=== PATIENT | male | born 1955 | race Caucasian/White ===

== ENCOUNTER → 2017-03-29 | Outpatient (CLI) | payer OTHER ==
[~2017-03-29] VITALS: Ht 185.4 cm; Wt 97.5 kg
[~2017-03-29] MED LIST: AMITRIPTYLINE H25 M2 PO; BAYER BACK & B1 EACH PO; CELEBREX 200 M200 M1 PO; COPAXONE SQ; DURAGESIC1 EACH TRANSDERM; DURAGESIC25 MCG/HR TRANSDERM; FENTANYL PATCH75 MCG TRANSDERM; HYDROCODON-ACE1 EAC5 PO; HYDROCODON-ACE1 EAC8 PO; HYDROCODON-ACE118 ML PO; HYSINGLA ER40 MG PO; LIORESAL 10 MG10 MG PO; LISINOPRIL-HCT1 EACH PO; METHADONE HCL5 MG PO; MOBIC15 MG PO; MS CONTIN15 MG PO; NABUMETONE 500500 M1 PO; NEURONTIN 300300 M1 PO; NORCO 10-325 T1 EAC1 PO; NORCO 10-325 T1 EACH PO; NORTRIPTYLINE H10 M1 PO; NORVASC10 MG PO; PERCOCET 5-3251 EACH PO; TAMSULOSIN HCL0.4 M1 PO
--- NOTE | ~2017-03-29 | HPC ---
[facility] [address] [place] [address] PAIN MANAGEMENT CONSULTATION Name: REUBEN WOODS Room #: REG WILLIAM Oliveira#: [id number] Admission: 03/29/17 Attend Phys: Byron Nation DO Discharge: Date of : 54 Report #: [id number] THIS REPORT FOR: //name// CC: Brad Hudson HISTORY OF PRESENT ILLNESS: The patient is an unfortunate 61-year-old gentleman seen in consultation at the request of Dr. Gallardo for assistance with management of chronic pain concerns. The patient states he has chronic pain in his low back, a dull "nagging" sensation with pain going into the legs and calves. He has a numb throbbing sensation in his thighs. The patient has taken escalating doses of hydrocodone for this, was started on Duragesic at 50 at 50 mcg q. 72 hours. He has been using this for the past month and he notes "no effect." He still rates his pain at 8 on VAS. Important co history notes, the patient has been diagnosed with multiple scleroses, apparently developed symptoms of right-sided hemiparesis and paresthesia, initially noted around 2007. Does have MRIs in the chart of cervical and lumbar spine from that date. Subsequently, diagnosed with multiple scleroses around 2009. Initially treated with Copaxone for about 2 years. Subsequently treated with Tecfidera for another year or more. The patient states he self-discontinued medication, perhaps around 2014 due to lack of subjective efficacy. It is noteworthy at that time, he was walking using a cane or walker. He notes his symptoms have dramatically worsened. He has been in a motorized wheelchair for the past 6 months. He has significant weakness in the right leg. Near paraplegia with weakness in the left leg as well. He states he can transition from chair to the toilet only using a handrail. He is unable to bear weight at all. The patient notes his pain is constant, cramping, aching and stabbing, rates an 8 on a VAS despite greater than 90 mEq of morphine opiate daily (Duragesic at 50 mcg equates to roughly 125 mg of morphine daily, hydrocodone 7.5/325 three a day equates to another 22.5 mg a day). REVIEW OF SYSTEMS: Complete review of systems was attached to the chart was gone over with the patient. The patient is , seen and accompanied his who is supportive. Does not smoke or drink alcohol to excess. History of hypertension, treated with lisinopril and amlodipine. Other medical history is essentially unremarkable other than for the multiple scleroses. He states he has enjoyed remarkably good health and indeed had really not seen a physician prior to the paresthesia noted in the right arm and leg around 2007. He had worked in construction, has been off work for 4 years, [place] [address] PAIN MANAGEMENT CONSULTATION Name: REUBEN WOODS Room #: REG WILLIAM Oliveira#: [id number] Admission: 03/29/17 Attend Phys: Byron Nation DO Discharge: Date of : 53 Report #: [id number] disability. Pain impact score is quite high, averaging 65/70. PHYSICAL EXAMINATION: GENERAL: Reveals a 6 feet 1 inch, 215 pounds gentleman and BMI is 28.4 kilograms per meter squared. Blood pressure 123/75, pulse 101, respirations are 16, room air oxygen saturation is 98%. As noted in the chief complaint, subjective pain score is 8-9 on a VAS. NEUROLOGICAL: Cranial nerves 2 through 12 are grossly intact. Pupils equal, somewhat pinpoint and reactive to light and accommodation. Extraocular muscles are intact. There is no nystagmus. Lateral gaze deviation. MUSCULOSKELETAL: Cervical range of motion is good. Upper extremity strength is generally preserved about 3-4/5 for the right, perhaps 4/5 on the left. Deep tendon reflexes are brisk, 2+/4 for the biceps, triceps and brachioradialis. NECK: Thyroid unremarkable. No carotid bruits are noted. HEART: Tachycardic but no murmurs. LUNGS: Clear. ABDOMEN: Benign. EXTREMITIES: Right leg shows dramatic loss of strength. Slight hip flexion. No dorsiflexion, plantar flexion, lower extremity extension or flexion. Left leg is stronger, dorsiflexion, plantarflexion is 2/5; lower extremity extension, flexion is 1-2/5; hip flexion is 2-3/5. Patellar reflexes absent. Has diffuse tenderness in the low back, primarily over the SI joint area. No trigger points are noted. No specific muscle spasm noted. There is pretibial edema +1-2, lower extremities, right somewhat greater than left. DIAGNOSTIC STUDIES: As alluded earlier, he does have MRI of the cervical and lumbar spine from 2007, there is a small lesion at C6-C7, corresponding to likely myelomalacia. On T2 imaging after contrast, the area in question is 1.2 cm in the craniocaudad extent and perhaps a 0.7 cm transverse. There are no subsequent diagnostic studies. Lumbar MRIs fairly unremarkable, does show at L5-S1 some moderate degenerative facet changes with some fluid in the facet joints. Again, this is lower than the subjective pain, which is in the SI area. No subsequent studies have been done over the past decade of which we are aware. ASSESSMENT: Neuropathic pain in a gentleman with significant mobility impact from multiple scleroses. Symptoms dramatically increased when he self-discontinued disease modifying agents around 2014. Strongly recommend the patient follow up with Neurology. I pointed out that he may not be able to get back the losses he has already accrued; however, he may be able to slow further losses. As far as pain, clearly this is not opiate sensitive pain, he is on a supratherapeutic dose of narcotic, rating his pain 8 on a VAS. Pain appears to be neurogenic mediated, may be some component of axial back pain due to the positional component (the patient notes pain is worse when he is recumbent). [facility] [address] [place] [address] PAIN MANAGEMENT CONSULTATION Name: REUBEN WOODS Room #: REG [facility] Ariel.#: [id number] Admission: 03/29/17 Attend Phys: Byron Nation DO Discharge: Date of : 53 Report #: [id number] RECOMMENDATIONS: 1. I had a long discussion with the patient today about therapeutic option. I spent a good deal of time. I pointing out the patient is at this point somewhat opiate habituated with 50 mcg Duragesic daily for 30 days. We will gradually wean this agent, I have taken the liberty of writing for 25 mcg of Duragesic patch, dispensed 5 patches to be used q. 72 hours. A second prescription for Duragesic at 12 mcg was dispensed to be released in 2 weeks, again to be used q. 72 hours (#5 patches) . 2. Over the course of 4 weeks, we will start the patient on gabapentin 300 mg, gradually titrated to a target dose of 1 in the morning and 2 at night. 3. We will continue hydrocodone, gradually increasing dose somewhat to 10 mg up to 4 a day. I informed the patient that we would be weaning hydrocodone over time. 4. We will reevaluate in 4 weeks. We will likely plan on starting low dose methadone as it will help with some axial back pain that may be opiate sensitive and will help with neuropathic pain from the NMDA component. 5. May consider adding a sodium channel membrane stabilizing agent (Trileptal or Tegretol) for some synergistic relief with the gabapentin. 6. We discussed baclofen as a possible agent to help with spasticity in lower extremities. The patient has been on this before. Unfortunately, he notes that it did cause some weakness in the upper extremities, which is his primary mobility. We will defer on this agent at present. Thank you for allowing me to participate the patient's care. I will keep you abreast of his progress. <ELECTRONICALLY SIGNED> By: Byron Nation DO 03/30/17 0845 [id number] 0003 Byron Nation DO /nt
[2017-03-29 14:20] VITALS: BP 153/75
== END ==
LOC: PAIN 03-22 09:00
DX: M79.2 Neuralgia and neuritis, unspecified (principal); G89.29 Other chronic pain; M54.5 Low back pain

== ENCOUNTER → 2017-04-23 | Outpatient (CLI) | payer OTHER ==
[~2017-04-23] VITALS: Ht 185.4 cm; Wt 95.3 kg
--- NOTE | ~2017-04-23 | HPC ---
[facility] [address] [address] PAIN MANAGEMENT CONSULTATION Name: PEGGYREUBEN BELL Ramone Room #: REG WILLIAM Oliveira#: [id number] Admission: 04/23/17 Attend Phys: Byron Nation DO Discharge: Date of : 54 Report #: [id number] THIS REPORT FOR: //name// CC: Brad Nation DATE OF SERVICE: 04/23/2017 The patient is a 61-year-old gentleman seen in consultation 03/29/2017. He has multiple sclerosis, neuropathic pain, chronic pain syndrome requiring complex medication management. That visit, we weaned the patient off of Duragesic. He had been abruptly started at 50 mcg, I weaned to 25 mcg and 12 mcg patch. He has been off this now for about 7 days. He is using hydrocodone 10/325 anywhere from 3-5 a day, gabapentin 300 mg 1 in the morning and 2 at night (gradual titration) has been quite efficacious. He feels his pain is better. In fact, his lower extremities appear to be a little bit stronger. Today, we did have a prolonged visit from 13:45-14:15. Greater than 50% of this 30-minute visit was spent counseling the patient. He has not seen a neurologist. We reviewed concerns. He had been treating with Dr. Rajesh Marroquin, he had been diagnosed around 2007 with some right-sided hemiparesis, actually multiple sclerosis I believe was diagnosed 2009. He was on Copaxone for 2 years, subsequently treated Tecfidera for another couple of years. He self-discontinued around 2014. At that time, he was walking, but felt that he was becoming more disabled around that time. He is walking with a cane or walker. He notes his symptoms have dramatically worsened. He has been in a wheelchair now for the past 6 months. RECOMMENDATIONS: I had discussed with the patient at initial visit that I did want him to follow up with Neurology for consideration for resuming some disease modifying agents. I was concerned that with multiple sclerosis, we often cannot reverse physical losses, but we may be able to slow his debility. PHYSICAL EXAMINATION: Today does show a pleasant 61-year-old gentleman, BMI is 27.7 kilograms per meter squared. Blood pressure 140/77, pulse 79, respirations 14. Subjective pain score 7-8 on VAS. Primary pain is in the mid back right at the base at L5-S1. Pain is exacerbated with any and all movement. 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 Also, has pain in his legs with movement, though I am impressed that his right leg appears to be getting a little bit stronger at present. [facility] [address] [place] [address] PAIN MANAGEMENT CONSULTATION Name: REUBEN WOODS Room #: REG CLDayana Oliveira#: [id number] Admission: 04/23/17 Attend Phys: Byron Nation DO Discharge: Date of : 53 Report #: [id number] Functional assessment score is 64/70. He does score in the low risk for opiate diversion. We reviewed the fact that opiate medications are being used to provide analgesia adequate to support activities of daily living, not attempting to achieve a specific pain score on the 0-10 Visual Analog Scale. The current opiate medications are providing sufficient analgesia to allow the patient to participate in activities of daily living. The patient is not exhibiting any aberrant behavior suggestive of drug diversion. The patient is not having any adverse reactions to medications. The patient is not suffering from daytime somnolence or mental acuity changes. The patient is managing opiate-induced constipation with appropriate mdiv-bom-yehqeki agents and dietary considerations. The patient was counseled on concern for caution with operating a motor vehicle while using opiate medications. A physical exam was performed and the patient's functional status was evaluated. All patients with back pain were advised against the bed rest greater than 4 days and were advised to return to normal activities. Pain score assessment was noted and the treatment plan was reviewed with the patient. All current medications, both prescribed and OTC were reviewed and reconciled on the electronic medical record. Tobacco screening was accomplished and smoking cessation was advised when indicated. BMI was noted and diet/exercise modification was recommended for all patients following outside normal parameters. I reviewed with the patient today their responsibilities to safeguard prescription medications, reviewed their responsibility to utilize medications only as prescribed by the physician. They are to seek and receive pain medications only from 1 physician group ( [facility]). They are to use 1 pharmacy and keep the clinic informed if they change pharmacies. Their responsibilities include making followup visits in a timely fashion and to avoid abrupt discontinuation of medication usage. Their responsibilities further include bringing their medications (bottles from the pharmacy with residual pills) to the visit for possible confirmation of pill counts and the patient understands it is their responsibility to submit to random drug screens to ensure both that the medications prescribed are present, and that no other controlled substances are present. All prescriptions provided today were generated electronically. ASSESSMENT: Multiple sclerosis, neuropathic pain, chronic pain syndrome requiring complex medication management. RECOMMENDATION: 1. We will start the patient on a nonsteroidal anti-inflammatory agent meloxicam 15 mg 1 a day, continue gabapentin 300 mg 1 in the morning, [address] [address] PAIN MANAGEMENT CONSULTATION Name: REUBEN WOODS Room #: REG [facility].#: [id number] Admission: 04/23/17 Attend Phys: Byron Nation DO Discharge: Date of : 54 Report #: [id number] (we may increase this to a target of 1605-0041 mg). 2. Continue hydrocodone 10/325 up to 4 a day, taken the liberty of writing for 2 months of current medication. If symptoms continue problematic in the low back in 2 months, we will again likely increase gabapentin and move forward with bilateral L4-L5 and L5-S1 facet joint injections and/or SI joint injections depending on clinical exam at that time. The patient was discharged in good and stable condition, 2 months followup. <ELECTRONICALLY SIGNED> By: Byron Nation DO 04/26/17 0938 1514 1736 Byron Nation DO /nt
[2017-04-23 13:30] VITALS: BP 142/77
== END ==
LOC: PAIN 07:21
DX: M79.2 Neuralgia and neuritis, unspecified (principal); G35 Multiple sclerosis; G89.29 Other chronic pain; Z79.899 Other long term (current) drug therapy

== ENCOUNTER → 2017-07-30 | Outpatient (CLI) | payer OTHER ==
[~2017-07-30] VITALS: Ht 182.9 cm; Wt 88.5 kg
[~2017-07-30] MED LIST changes: -CELEBREX 200 M200 M1 PO; -HYDROCODON-ACE1 EAC5 PO; -HYSINGLA ER40 MG PO; -LIORESAL 10 MG10 MG PO; -METHADONE HCL5 MG PO
--- NOTE | ~2017-07-30 | HPC ---
[facility] [place] [address] [address] PAIN MANAGEMENT CONSULTATION Name: REUBEN WOODS Room #: REG WILLIAM Ariel.#: [id number] Admission: 07/30/17 Attend Phys: Byron Nation DO Discharge: Date of : 54 Report #: [id number] THIS REPORT FOR: //name// CC: Brad Nation DATE OF SERVICE: 07/30/2017 The patient a 61-year-old gentleman being treated for neuropathic pain secondary to multiple sclerosis, axial back pain, requiring complex medication management, generalized debility, last seen in the Pain [facility] on 06/15/2017. Continued patient on hydrocodone 10/325 four a day, gabapentin 300 mg two at night (around 10 p.m.) and two early in the mornings (0400). Relafen 5 mg b.i.d. The patient has an appointment to see Dr. Rajesh Marroquin sometime next month for consideration for disease modifying agents. He had prior been on Copaxone and Tecfidera. He is significantly disabled, essentially wheelchair bound at this point. Ongoing axial back and neuropathic pain in his feet. Notes that hydrocodone helps, but duration of action is shorter than the scheduled q. 6 hours. Rates the pain a 10 on a VAS. States he has had a miserable last month or so. PHYSICAL EXAMINATION: Otherwise unchanged. A 61-year-old gentleman, BMI is 26.44 kg/m2. Vital signs are stable as noted in the EMR. Alert and oriented to person, place and time, judged to be a reasonable historian. He is in a wheelchair. Lower extremity strength is diminished, but symmetric. Axial back pain and neuropathic lower extremity pain. ASSESSMENT: Chronic pain syndrome requiring complex medication management, neuropathic pain in a gentleman with advanced multiple sclerosis, requiring complex medication management. RECOMMENDATIONS: 1. After long discussion with the patient, he would like to continue gabapentin 300 mg increased from 4-5 a day, 3 tablets at bedtime with 2 in the marketing communications specialist hours. 2. Continue nabumetone 500 mg b.i.d., limit ASA to 2 tablets daily. 3. We will rotate from hydrocodone due to dwindling efficacy and end of dose failure, we will trial MS Contin 15 mg q. 8 hours. I have taken the liberty of writing for 2 months of current medication make an appointment to see the patient back in 2-3 weeks. If the MS Contin is not working, we will look forward for another longer acting agent at that point. Discharged in good and stable condition after moderately prolonged visit, approximately 25 minutes was spent with the patient and his , greater than 50% times reviewing therapeutic options and counseling the patient. I stressed that we cannot make [facility] [address] [place] [address] PAIN MANAGEMENT CONSULTATION Name: REUBEN WOODS Room #: REG WILLIAM Oliveira#: [id number] Admission: 07/30/17 Attend Phys: Byron Nation DO Discharge: Date of : 53 Report #: [id number] him "pain free." We are simply trying to minimize his chronic pain and suffering. By: [id number] Byron Nation DO /nt
[2017-07-30 14:38] VITALS: BP 130/71
== END ==
LOC: PAIN 06:38
DX: M79.2 Neuralgia and neuritis, unspecified (principal); G89.4 Chronic pain syndrome; G35 Multiple sclerosis; Z79.899 Other long term (current) drug therapy

== ENCOUNTER → 2017-08-20 | Outpatient (CLI) | payer OTHER ==
[~2017-08-20] VITALS: Ht 185.4 cm; Wt 90.7 kg
[~2017-08-20] MED LIST changes: +METHADONE HCL5 MG PO
--- NOTE | ~2017-08-20 | HPC ---
[facility] [address] [place] [address] PAIN MANAGEMENT CONSULTATION Name: REUBEN WOODS Room #: REG TANNERDayana Oliveira#: [id number] Admission: 08/20/17 Attend Phys: Byron Nation DO Discharge: Date of : 53 Report #: [id number] THIS REPORT FOR: //name// CC: Brad Nation DATE OF SERVICE: 08/20/2017 HISTORY OF PRESENT ILLNESS: The patient is a 61-year-old gentleman, being treated for neuropathic pain secondary to multiple sclerosis, axial back pain, lumbar radiculopathy requiring complex medication management with generalized debility. Last seen in the pain clinic on 07/30/2017. The patient feels he was having end of dose failure with hydrocodone 10/325 four a day, gabapentin 300 mg 2 at bedtime and 2 at 04:00 in the morning, 500 mg nabumetone b.i.d. Last visit with end of dose failure, we elected to try rotating to MS Contin 15 mg q.8 hours. He has been on this now for nearly 3 weeks. He feels that it is not nearly as efficacious as the hydrocodone had been. He is discussing burning neuropathic pain in his bilateral legs and feet. He rates it a 9 on a VAS. He is again becoming more and more disabled. He states he can barely stand or brush his teeth. He does do all of his own transfers. States his legs simply getting weaker. Describes intermittent numbness and spasm in his legs. PHYSICAL EXAMINATION: GENERAL: Unchanged. Pleasant 61-year-old gentleman, BMI is 26.4 kilograms per meter squared. VITAL SIGNS: Stable as noted in the EMR. NEUROLOGIC: Alert and oriented to person, place and time, judged to be a reasonable historian. EXTREMITIES: Getting some edema in the lower extremities. They are getting weaker both objectively and subjectively. We reviewed the fact that opiate medications are being used to provide analgesia adequate to support activities of daily living, not attempting to achieve a specific pain score on the 0-10 Visual Analog Scale. The current opiate medications are providing sufficient analgesia to allow the patient to participate in activities of daily living. The patient is not exhibiting any aberrant behavior suggestive of drug diversion. The patient is not having any adverse reactions to medications. The patient is not suffering from daytime somnolence or mental acuity changes. The patient is managing opiate-induced constipation with appropriate bztg-nfv-oopuvxm agents and dietary [address] [address] PAIN MANAGEMENT CONSULTATION Name: PEGGYREUBEN BELL [facility]: [id number] Admission: 08/20/17 Attend Phys: Byron Nation DO Discharge: Date of : 53 Report #: [id number] considerations. The patient was counseled on concern for caution with operating a motor vehicle while using opiate medications. A physical exam was performed and the patient's functional status was evaluated. All patients with back pain were advised against the bed rest greater than 4 days and were advised to return to normal activities. Pain score assessment was noted and the treatment plan was reviewed with the patient. All current medications, both prescribed and OTC were reviewed and reconciled on the electronic medical record. Tobacco screening was accomplished and smoking cessation was advised when indicated. BMI was noted and diet/exercise modification was recommended for all patients following outside normal parameters. I reviewed with the patient today their responsibilities to safeguard prescription medications, reviewed their responsibility to utilize medications only as prescribed by the physician. They are to seek and receive pain medications only from 1 physician group ( [facility]). They are to use 1 pharmacy and keep the clinic informed if they change pharmacies. Their responsibilities include making followup visits in a timely fashion and to avoid abrupt discontinuation of medication usage. Their responsibilities further include bringing their medications (bottles from the pharmacy with residual pills) to the visit for possible confirmation of pill counts and the patient understands it is their responsibility to submit to random drug screens to ensure both that the medications prescribed are present, and that no other controlled substances are present. All prescriptions provided today were generated electronically. RECOMMENDATIONS: I had a prolonged discussion with the patient and his today about therapeutic options. We talked about opiate equivalence, the theoretical reasons for opiate rotation in individual drug intolerances. We talked about neuropathic pain and ultimately elected to trial methadone 5 mg t.i.d. It should be roughly equivalent to 60 mg morphine equivalence, slight increase over his current 45 mg morphine equivalence. Stressed that we were trying to keep him actually in the 0-50 mg category. I have given him a 10-day trial of methadone, i.e., 35 mg tablets. If this affords good relief, I gave him a second prescription for 90 tablets to be released in 10 days. If, however, the methadone 5 mg t.i.d. does not afford adequate efficacy in 10 days, I gave him another prescription to be released in 10 days for hydrocodone 10/325, limit 100 tablets with directions to take 1 four a day. We will have the patient follow up in 40 days for reevaluation. He will bring back either the methadone or hydrocodone prescription that he did not get filled and they should also bring back the "4-week release" MS Contin 15 mg q.8 hours prescription. Discharged in good and stable condition after prolonged visit. The patient was [address] [address] PAIN MANAGEMENT CONSULTATION Name: REUBEN WOODS Room #: REG WILILAM Saleem#: [id number] Admission: 08/20/17 Attend Phys: Byron Nation DO Discharge: Date of : 53 Report #: [id number] seen for greater than 25 minutes, greater than 50% of time was spent counseling the patient, talking about therapeutic options, opiate drug equivalence and drug rotation. The patient strongly encouraged to follow up with Dr. Rajesh Marroquin, he has an appointment next month. Dr. Marroquin had managed the patient's multiple sclerosis years ago. He had ultimately failed Copaxone and Tecfidera. When he stopped taking all disease modifying agents, he became vastly more disabled. Hopefully, we can find an agent that will at least slow the continued debility that the patient is currently seeing with his multiple sclerosis. Discharged in good and stable condition. We will have him followup with one of my [facility] likely Dr. Altamirano or Dr. Brad Nation. <ELECTRONICALLY SIGNED> By: Byron Nation DO 08/22/17 0734 [id number] Byron Nation DO /nt
[2017-08-20 13:05] VITALS: BP 138/66
== END ==
LOC: PAIN 08:02
DX: M54.16 Radiculopathy, lumbar region (principal); G35 Multiple sclerosis; M54.5 Low back pain; Z79.899 Other long term (current) drug therapy

== ENCOUNTER 2017-09-02 15:58 | Emergency (ER) | payer OTHER ==
[~2017-09-02] VITALS: Ht 185.4 cm; Wt 90.7 kg
--- NOTE | ~2017-09-02 | EKG ---
[place] [address] [facility] 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
[2017-09-02 16:57] LABS: ABSOLUTE NEUTROPHILS 8.3 thou/uL (1.4-8.2); BASOPHILS 0.6 % (0.0-2.0); HEMATOCRIT 42.9 % (42.0-52.0); HEMOGLOBIN 14.8 gm/dL (14.0-18.0); LYMPHOCYTES 9.1 % (24.0-44.0); MCH 29.3 pg (26.0-34.0); MCHC 34.5 g/dL (28.0-37.0); MONOCYTES 4.4 % (1.0-8.0); PLATELET COUNT 209 thou/uL (150-400); POLYS 84.9 % (36.0-66.0); RBC 5.04 mil/uL (4.50-6.00); RDW 13.3 % (10.5-14.5); WBC 9.8 thou/uL (4.0-11.0)
[2017-09-02 17:10] LABS: ANION GAP 8 mmol/L (7-16); BUN 12 mg/dL (7-18); CALCIUM 9.2 mg/dL (8.5-10.1); CHLORIDE 102 mmol/L (98-107); CO2 29 mmol/L (21-32); CREATININE 0.9 mg/dL (0.7-1.3); GLUCOSE 102 mg/dL (74-106); POTASSIUM 3.9 mmol/L (3.5-5.1); SODIUM 139 mmol/L (136-145)
[2017-09-02 17:18] LABS: ALBUMIN 4.2 g/dL (3.4-5.0); SGOT 28 U/L (15-37); SGPT 38 U/L (30-65); TOTAL BILIRUBIN 0.5 mg/dL (<0.1-1.0); TOTAL PROTEIN 8.2 g/dL (6.4-8.2); TROPONIN-I <0.06 ng/mL (<0.06)
[2017-09-02] MEDS ORDERED: NORCO 10-325 T1 EACH PO (17:37)
== END 2017-09-02 18:15 | disposition home or self-care (01) ==
LOC: ER 15:58
PROVIDERS: Physician Assistant
DX: R00.2 Palpitations (principal); R53.83 Other fatigue; T40.3X5A Adverse effect of methadone, initial encounter; R11.0 Nausea; R10.9 Unspecified abdominal pain; M79.89 Other specified soft tissue disorders; G89.29 Other chronic pain

== ENCOUNTER → 2017-09-28 | Outpatient (CLI) | payer OTHER ==
[~2017-09-28] VITALS: Ht 182.9 cm; Wt 88.5 kg
[~2017-09-28] MED LIST changes: +HYSINGLA ER40 MG PO
[2017-09-28 13:58] VITALS: BP 150/86
== END ==
LOC: PAIN 07:23
DX: M54.5 Low back pain (principal); M79.661 Pain in right lower leg; M79.662 Pain in left lower leg; Z79.899 Other long term (current) drug therapy

== ENCOUNTER → 2017-11-16 | Outpatient (CLI) | payer OTHER ==
[~2017-11-16] VITALS: Ht 182.9 cm; Wt 86.2 kg
[~2017-11-16] MED LIST changes: +HYDROCODON-ACE1 EAC5 PO
--- NOTE | ~2017-11-16 | HPC ---
Former[facility] [address] [place] [address] PAIN MANAGEMENT CONSULTATION Name: ERICK WOODS Room #: REG WILLIAM Tee#: [id number] Admission: 11/16/17 Attend Phys: Luanne Altamirano MD Discharge: Date of : 53 Report #: [id number] THIS REPORT FOR: //name// CC: Brad Altamirano DATE OF SERVICE: 11/16/2017 FOLLOWUP COMPLAINT: Here for medication renewal. HISTORY: The patient is a 62-year-old gentleman who has been followed in the Pain Clinic. As you recall, he suffers from multiple sclerosis. He finds that he is wheelchair bound at this juncture. He is using hydrocodone tablets. Finds that they continued to be efficacious. He has returned today for renewal of his medications. Noted some uptake in his discomfort. Rates his pain as an 8/10 at this point. He would like to have a renewal of his medications. He feels that the nabumetone medication is working reasonably well. He is not complaining of pain or gastroesophageal problems. We have increased the patient's hydrocodone to [place] 10 mg and he is taking up to 5 tablets per day. Feels that this medication is helpful. He is not having any side effects. Does not feel suicidal. He is accompanied by his . ALLERGIES: Palpitations with the use of methadone. CURRENT MEDICATIONS: Hydrocodone 10/325 one p.o. 5 tablets daily, nabumetone 500 mg b.i.d., gabapentin 300 mg 3 tablets at bedtime, 2 tablets a.m., acetaminophen/caffeine, lisinopril/hydrochlorothiazide 10/12.5 mg, amlodipine 10 mg. PAIN CLINIC ASSESSMENT/PQRS: 1. History of osteoarthritis. The patient is not being treated for osteoarthritis or rheumatoid arthritis. 2. Height 6 feet 0 inches, weight 190 pounds, BMI is 25. 3. Vital signs: Blood pressure 131/70, pulse 73, respiratory rate 16, room air saturation 99%. 4. Pain intensity 09/21. 5. Fall risk. The patient has not fallen, but does need some assistance with ambulation. 6. Blood thinner. The patient is not on a blood thinning medication. 7. Hypertension. The patient is being treated for hypertension. 8. Opioid therapy greater than 6 weeks. The patient is receiving medications through the Pain Clinic. 9. Risk assessment tool, low risk, 1/3 for use of opioids. 10. Functional assessment tool 65/70. 11. Recreational drug use. The patient denies use of recreational drugs. 12. Tobacco: The patient denies use of tobacco. [address] [address] PAIN MANAGEMENT CONSULTATION Name: ERICK WOODS YANETH [id number] Admission: 11/16/17 Attend Phys: Luanne Altamirano MD Discharge: Date of : 53 Report #: [id number] 13. Alcohol: The patient denies use of alcoholic beverages. PHYSICAL EXAMINATION: GENERAL: The patient is a well-developed, well-nourished white male. Appears his stated age. He is in a wheelchair. He is alert and oriented x 3. His is with him. HEENT: Normocephalic, atraumatic. Extraocular eye muscles intact. Sclerae nonicteric. Mucous membranes are moist. MUSCULOSKELETAL: The patient is in a wheelchair. He has noticed some weakness in his upper extremities as well as lower extremities. He complains of back pain. He has exhibit some involuntary muscle spasms. IMPRESSION: 1. Chronic pain secondary to multiple sclerosis of the low back. 2. Depression. 3. Neurogenic bladder. 4. Abnormal/involuntary movements. 5. Skin sensational disturbances. RECOMMENDATIONS: We discussed treatment options with the patient at this juncture. We will continue with his hydrocodone at 10 mg, a total of 5 tablets per day. Feels that this medication is efficacious. We will have the patient followup within 1 month. He will call us if he is having any problems with his medications. We would like to thank you for letting us participate in his care. We hope he continues to improve. <ELECTRONICALLY SIGNED> By: Luanne Altamirano MD 11/26/17 1125 [id number] [id number] Luanne Altamirano MD /nt
[2017-11-16 11:17] VITALS: BP 131/70
== END ==
LOC: PAIN 06:49
DX: G35 Multiple sclerosis (principal); G89.29 Other chronic pain; M54.5 Low back pain; F32.9 Major depressive disorder, single episode, unspecified; R25.9 Unspecified abnormal involuntary movements; N31.9 Neuromuscular dysfunction of bladder, unspecified; R20.9 Unspecified disturbances of skin sensation; Z79.899 Other long term (current) drug therapy

== ENCOUNTER → 2017-12-07 | Outpatient (CLI) | payer OTHER ==
[~2017-12-07] VITALS: Ht 182.9 cm; Wt 86.2 kg
[~2017-12-07] MED LIST changes: +CELEBREX 200 M200 M1 PO; +LIORESAL 10 MG10 MG PO
--- NOTE | ~2017-12-07 | HPC ---
[facility] [place] [place] [address] PAIN MANAGEMENT CONSULTATION Name: ERICK WOODS Room #: REG TANNERDayana Tee#: [id number] Admission: 12/07/17 Attend Phys: Kimmie Talavera Discharge: Date of : 53 Report #: [id number] THIS REPORT FOR: //name// CC: Kimmie Gallardo DO DATE OF SERVICE: 12/07/2017 Followup today. Here for medication renewal for his chronic pain secondary to muscular sclerosis and pain in the lower back. HISTORY OF PRESENT ILLNESS: The patient is a 62-year-old gentleman who has been followed in the pain clinic first by Dr. Byron Nation and then by Dr. Ronald Altamirano. He suffers from multiple sclerosis. He has a history of chronic pain. He has been on several different medications in the past, but finds that his current medication has been hydrocodone and has been helpful. He does have some increasing pain at times and rating it as 7/10 today. He tells the nurses today that his stomach has been upset or having some indigestion requiring him to start taking some Zantac and his stomach has been upset at times. These nurses thought that maybe the nabumetone was causing the problem. The patient tells me he did not think of that as a medication problem, but maybe it is the case. He denies any black tarry stools at this time. He would like a refill of his hydrocodone 10/325, which he takes 5 tablets a day. The patient also tells me that he has been having more problems getting out of his wheelchair to his chair at night stating he has pain in his legs when he gets up during the night. ALLERGIES: No known drug allergies. CURRENT MEDICATIONS: Hydrocodone 10/325 one tablet up to 5 times a day, nabumetone 500 mg twice a day, gabapentin 300 mg capsules three tablets at night and two in the morning, Pooja Back and Body caplet, lisinopril/hydrochlorothiazide daily and Norvasc 10 mg once a day. The patient's PQRS today: 1. No history of osteoarthritis or rheumatoid arthritis. 2. Vital signs: 127/75, pulse is 81, respirations 14 and oxygen sat is 99%. Height is 6 feet even and weight is 190 with a BMI of 25.8. 3. Pain score today of 7/10. 4. Denies dizziness. He is in a wheelchair today and has not fallen in the last 3 months. 5. No blood thinners. 6. He does have a history of hypertension. 7. An opioid signed contract is on the chart since he has been on opioid therapy longer than 6 weeks. 8. Risk assessment tool is low. [address] [address] PAIN MANAGEMENT CONSULTATION Name: ERICK WOODS Room #: REG CLDayana Oliveira#: [id number] Admission: 12/07/17 Attend Phys: Kimmie Talavera Discharge: Date of : 53 Report #: [id number] 9. His functional assessment is 65/70. 10. He denies recreational drug use. States he has never smoked and does not use alcohol. [facility] is noted prescribing physician only Dr. Altamirano with no aberrant behaviors. The patient states that he is safeguarding his medications. PHYSICAL EXAMINATION:' GENERAL: The patient is a well-developed, well-nourished white male who appears his stated age. He is in a wheelchair today and he is alert and orientated. HEENT: Normocephalic and atraumatic. Extraocular eye muscles intact. Mucous membranes are moist. MUSCULOSKELETAL: The patient is in a wheelchair. Noted some weakness in his upper extremities and his lower extremities. He complains of back pain. Does have some involuntary muscle spasms. IMPRESSION: 1. Chronic pain secondary to muscular sclerosis. 2. Depression. 3. Neurogenic bladder. 4. Abnormal involuntary movement, spasticity. 5. Skin sensation disturbances. We reviewed the fact that opiate medications are being used to provide analgesia adequate to support activities of daily living, not attempting to achieve a specific pain score on the 0-10 Visual Analog Scale. The current opiate medications are providing sufficient analgesia to allow the patient to participate in activities of daily living. The patient is not exhibiting any aberrant behavior suggestive of drug diversion. The patient is not having any adverse reactions to medications. The patient is not suffering from daytime somnolence or mental acuity changes. The patient is managing opiate-induced constipation with appropriate mpqv-ayo-ahvcvml agents and dietary considerations. The patient was counseled on concern for caution with operating a motor vehicle while using opiate medications. A physical exam was performed and the patient's functional status was evaluated. All patients with back pain were advised against the bed rest greater than 4 days and were advised to return to normal activities. Pain score assessment was noted and the treatment plan was reviewed with the patient. All current medications, both prescribed and OTC were reviewed and reconciled on the electronic medical record. Tobacco screening was accomplished and smoking cessation was advised when indicated. BMI was noted and diet/exercise modification was recommended for all patients following outside normal parameters. I reviewed with the patient today their responsibilities to safeguard [facility] [address] [place] [address] PAIN MANAGEMENT CONSULTATION Name: ERICK WOODS Room #: REG [facility]#: [id number] Admission: 12/07/17 Attend Phys: Kimmie Talavera Discharge: Date of : 53 Report #: [id number] prescription medications, reviewed their responsibility to utilize medications only as prescribed by the physician. They are to seek and receive pain medications only from 1 physician group ( [facility]). They are to use 1 pharmacy and keep the clinic informed if they change pharmacies. Their responsibilities include making followup visits in a timely fashion and to avoid abrupt discontinuation of medication usage. Their responsibilities further include bringing their medications (bottles from the pharmacy with residual pills) to the visit for possible confirmation of pill counts and the patient understands it is their responsibility to submit to random drug screens to ensure both that the medications prescribed are present, and that no other controlled substances are present. All prescriptions provided today were generated electronically. PLAN: 1. We discussed several treatment options today with this patient first being his GI disturbances, stating that he is having pain in his stomach and as well what he appeared or thought was reflux or heartburn. The patient has been taking nabumetone 500 twice a day. It was discussed that he had taken meloxicam in the past, which was more stomach friendly, but did have some kind of reaction and that was stopped. We decided that he would start Celebrex 200 mg 1 tablet a day as an anti-inflammatory. It is known to be stomach friendly. Since he has failed the other two options, this is also generic so should easily be covered. 2. The patient complains of increased pain or spasm as he calls it in his legs, especially when he is moving from his recliner to his chair wondering about increasing his narcotic use and decided that that was not the best option as to try to keep his narcotic use and MME at the lowest possible number, which is 50 right now. We decided that baclofen is a muscle relaxant that may help his spasms in his leg. The patient was worried about taking a high dose. We discussed several different options of muscle relaxants and decided that baclofen 10 mg tablets, may take 1-2 tablets a day started on the lowest possible dose and if he needs to take two, 20 mg was still a low dose once a day. The patient was given a trial of this medicine for the next month and we will see if it is helpful. 3. The patient was given 2 months' medications of his hydrocodone 10/325, #150. The patient is to take no more than 5 tablets a day, script for today and 4 weeks. 4. The patient will be seen in 2-month followup with me. At that time, we will see how his medications have been helpful. If they are unhelpful then he is to call the office and scheduled appointment sooner. 5. The patient is agreeable with this plan of care. The patient was seen in collaboration with Dr. Ronald Altamirano today. <ELECTRONICALLY SIGNED> By: Kimmie Talavera 12/10/17 0831 [id number] [id number] Kimmie Talavera /nt
[2017-12-07 13:29] VITALS: BP 127/75
== END ==
LOC: PAIN 07:28
DX: G35 Multiple sclerosis (principal); G89.29 Other chronic pain; N31.2 Flaccid neuropathic bladder, not elsewhere classified; F32.9 Major depressive disorder, single episode, unspecified; R25.9 Unspecified abnormal involuntary movements; R25.2 Cramp and spasm; R20.9 Unspecified disturbances of skin sensation; Z79.899 Other long term (current) drug therapy

== ENCOUNTER → 2018-01-30 | Outpatient (CLI) | payer OTHER ==
[~2018-01-30] VITALS: Ht 182.9 cm; Wt 86.2 kg
[~2018-01-30] MED LIST changes: +CYMBALTA30 MG PO
--- NOTE | ~2018-01-30 | HPC ---
[facility] [place] [address] PAIN MANAGEMENT CONSULTATION Name: ERICK WOODS Room #: REG [facility] Tee#: [id number] Admission: 01/30/18 Attend Phys: Kimmie Talavera Discharge: Date of : 53 Report #: [id number] THIS REPORT FOR: //name// CC: Kimmie Gallardo DATE OF SERVICE: 01/30/2018 CHIEF COMPLAINT: Here for chronic pain secondary to his muscular sclerosis pain in his lower back. HISTORY OF PRESENT ILLNESS: The patient returns to the pain clinic today, he is a 62-year-old gentleman for his multiple sclerosis and chronic pain in his low back. Today, he is telling me that his pain score is 7-8/10, mostly in his feet and low back. He complains of numbness and spasms. He tells me that his medications are helpful, but some are not working as well as they used to. His pain is worse with increased activity. He denies constipation. He tells me he takes care of that with stool softeners and diet and does not have any daytime sleepiness. The patient tells me that he would like to go back on nabumetone. He did not think that the Celebrex has been working as well as it used to and he thought nabumetone helped with decrease his swelling in his leg more than Celebrex does. The patient also tells me that he has been taking up to 6 tablets of his gabapentin. His neurologist told him that he could increase this, but we are prescribing 5 pills a day. The patient finds that his hydrocodone if he takes one every 4 hours it is very effective in controlling his pain. He also tells me that he has been having problems with some depression and of course his nerve pain. He would like a refill today of his medications and wondering if we were able to change his anti-inflammatory. ALLERGIES: No known drug allergies. CURRENT LIST OF MEDICATIONS: Gabapentin 300 mg tablets, take 3 tablets at night and 2 at 4:00 in the morning; Celebrex 200 mg daily, baclofen 1-2 tablets daily, hydrocodone 10/325 up to 5 times a day, Pooja Back and Body caplet 2 a day, lisinopril/hydrochlorothiazide daily and amlodipine daily. PQRS: 1. He has no history of osteoarthritis or rheumatoid arthritis. 2. Height is 6 feet, weight is 190, his BMI is 25. 3. Vital signs: Blood pressure 144/80, pulse is 85, respirations 14, oxygen sat is 98%. 4. Pain score is 8/10. 5. Fall risk: He denies dizziness. He is in a wheelchair today. He has not fallen in the last 3 months. 6. The patient is not on any blood thinners, does have a history of taking antihypertensive medicines. [address] [address] PAIN MANAGEMENT CONSULTATION Name: ERICK WOODS Room #: REG CLDayana Oliveira#: [id number] Admission: 01/30/18 Attend Phys: Kimmie Talavera Discharge: Date of : 53 Report #: [id number] 7. His opioid therapy is greater than 6 weeks, therefore an opioid contract is on the chart. 8. His risk assessment tool is low. His function assessment is 65-70. 9. The patient does not use recreational drugs. He does not smoke and does not drink alcohol. We checked the prescription monitoring system. The patient is filling meds from our doctors on monthly fills appropriately. We will need to check another UDS on this gentleman. I do not see one. We will check that at the next month for the past year. The patient tells me that he does safeguard his meds. He does have small children that come into the house, so he make sure they are in a safe, secure place. PHYSICAL EXAMINATION: GENERAL: This is a well-developed, well-nourished, white gentleman, who appears his stated age. He is in a wheelchair today. He is alert and orientated. He is a good historian. HEENT: Normocephalic, atraumatic. Extraocular eye muscles are intact. Mucous membranes are moist. MUSCULOSKELETAL: Again, the patient is in a wheelchair today. Noted weakness in his upper and lower extremities. He does complain of lower back pain and some swelling in his right lower leg and has some involuntary muscle spasms. IMPRESSION: 1. Chronic pain syndrome secondary to muscular sclerosis. 2. Depression. 3. Neurogenic bladder. 4. Abnormal involuntary movements. 5. Spasticity. 6. Skin sensation disturbances. We reviewed the fact that opiate medications are being used to provide analgesia adequate to support activities of daily living, not attempting to achieve a specific pain score on the 0-10 Visual Analog Scale. The current opiate medications are providing sufficient analgesia to allow the patient to participate in activities of daily living. The patient is not exhibiting any aberrant behavior suggestive of drug diversion. The patient is not having any adverse reactions to medications. The patient is not suffering from daytime somnolence or mental acuity changes. The patient is managing opiate-induced constipation with appropriate jwrl-ujl-qqbuiql agents and dietary considerations. The patient was counseled on concern for caution with operating a motor vehicle while using opiate medications. A physical exam was performed and the patient's functional status was evaluated. All patients with back pain were advised against the bed rest greater than 4 days and were advised to return to normal activities. Pain score assessment was [facility] [address] [place] [address] PAIN MANAGEMENT CONSULTATION Name: ERICK WOODS Room #: REG CL M.R.#: [id number] Admission: 01/30/18 Attend Phys: Kimmie Talavera Discharge: Date of : 53 Report #: [id number] noted and the treatment plan was reviewed with the patient. All current medications, both prescribed and OTC were reviewed and reconciled on the electronic medical record. Tobacco screening was accomplished and smoking cessation was advised when indicated. BMI was noted and diet/exercise modification was recommended for all patients following outside normal parameters. I reviewed with the patient today their responsibilities to safeguard prescription medications, reviewed their responsibility to utilize medications only as prescribed by the physician. They are to seek and receive pain medications only from 1 physician group ( [facility]). They are to use 1 pharmacy and keep the clinic informed if they change pharmacies. Their responsibilities include making followup visits in a timely fashion and to avoid abrupt discontinuation of medication usage. Their responsibilities further include bringing their medications (bottles from the pharmacy with residual pills) to the visit for possible confirmation of pill counts and the patient understands it is their responsibility to submit to random drug screens to ensure both that the medications prescribed are present, and that no other controlled substances are present. All prescriptions provided today were generated electronically. PLAN: 1. We discussed treatment options with the patient today, first being his baclofen. He tells me that he was taking that at bedtime and occasionally during the day. He feels that his legs feel weaker and unsteady when he is taking that medicine, so he has stopped taking it. We will discontinue that medication. We do not want him to fall. 2. The patient tells me that the Celebrex is not helping as much as the nabumetone did he feels with his anti-inflammatory. I asked the patient regarding his GI upset that was caused by the nabumetone. He does not feel that it was, maybe, now related to that and would like to at least try nabumetone again. Script today given for nabumetone 500 mg twice a day, #60 with no refills. 3. The patient is talked about his neurologist told him he could increase his gabapentin to 6 pills a day. We have been prescribing 5 pills. I did tell him that it does fall in range with the amount he is able to take as gabapentin, but we may try a different medication to see if he gets some better relief from his neuropathic symptoms. We will try Cymbalta 30 mg once a day for 7 days and then increase it to 2 pills a day for the remainder of the month. The patient may find this may help with some of his depression feelings, but also help with some neuropathic pain. If this does not work, we could then increase his gabapentin, but because this medicine does help in twofold, we will try this for the next month. 4. Script given for hydrocodone 10/325, patient takes one every 4-6 hours a quantity of 150 for the month. The patient tells us that this is very helpful as long as he takes it every 4 hours, it does control his pain. [facility] [address] [facility] [place] [address] PAIN MANAGEMENT CONSULTATION Name: ERICK WOODS Room #: REG WILLIAM Oliveira#: [id number] Admission: 01/30/18 Attend Phys: Kimmie Talavera Discharge: Date of : 53 Report #: [id number] 6. The patient will be seen in 1 month followup due to the several changes that we have made today. He is in agreement with this followup today given in collaboration with Dr. Altamirano. <ELECTRONICALLY SIGNED> By: Kimmie Talavera 01/31/18 0844 1338 1738 Kimmie Talavera /nt
[2018-01-30 12:23] VITALS: BP 144/80
== END ==
LOC: PAIN 10:12
DX: G35 Multiple sclerosis (principal); F32.9 Major depressive disorder, single episode, unspecified; G89.4 Chronic pain syndrome; G81.10 Spastic hemiplegia affecting unspecified side; R25.9 Unspecified abnormal involuntary movements; N31.9 Neuromuscular dysfunction of bladder, unspecified; R20.9 Unspecified disturbances of skin sensation

== ENCOUNTER → 2018-02-19 | Outpatient (CLI) | payer OTHER ==
[~2018-02-19] VITALS: Ht 182.9 cm; Wt 86.2 kg
[2018-02-19 09:02] VITALS: BP 139/77
--- NOTE | 2018-02-19 09:18 | NUR ---
Pain Clinic Assessment: 1. History of Osteoarthritis: Not Applicable History of Rheumatoid Arthritis: Not Applicable 2. Height: 6 ft. 0 in. 182.9 cm. Weight: 190.0 lb. oz. 86.184 kg. Patient's BMI: 25.8 3. Vital Signs: BP: 139/77 Pulse: 75 Resp: 16 Temp: 02 Sat: 100 ECG Mon: 4. Pain Intensity: 8 5. Fall Risk: Dizziness: N Needs help standing or walking: Y Fallen in the last 3 months: N Fall risk comments: 6. Patient on Blood Thinner: None 7. History of Hypertension: Y 8. Opioid Therapy greater than 6 weeks: N Opiate Contract Signed: 9. Risk Assessment Tool Provided: LOW RISK 02/14 10. Functional Assessment Tool: 65/70 11. Recreational Drug Use: Never Drug Type: Tobacco Use: Never Smoker Tobacco Type: Amount or Packs/day: How Many Years: Alcohol Use: Past use Frequency: Quant:
--- NOTE | 2018-02-20 07:57 | HPC ---
[facility] [place] [address] PAIN MANAGEMENT CONSULTATION Name: ERICK WOODS Room #: REG WILLIAM Oliveira#: [id number] Admission: 02/19/18 Attend Phys: Kimmie Talavera Discharge: Date of : 53 Report #: [id number] THIS REPORT FOR: //name// CC: Kimmie Gallardo DATE OF SERVICE: 02/19/2018 CHIEF COMPLAINT: Here for chronic pain secondary to his muscular sclerosis and pain in his lower back. HISTORY OF PRESENT ILLNESS: This is a 62-year-old gentleman who has been followed in the pain clinic for some time for his muscular sclerosis and chronic low back pain. Today, he returns very tearful to the clinic telling me that his pain is an 8/10, not being very well controlled with his current regimen, requesting increase of his pain medication or some other changes. He is unsure what would be helpful, but tells me that he had a flareup of his MS on 02/03/2018. He tells me that his current regimen is not helpful with his low back pain, leg pain. He said his pain is worse sitting still in heat or activity. The Boscobel is helpful when he takes it, but he says that 5 a day is not enough to control his medicine. It only lasts about 4 hours a day and then he is 4 hours and then he is in pain for the next couple hours before he is able to take another one. He is taking Cymbalta 60 mg a day, which we started last month. He tells me also that his neurologist had told him to take 6 gabapentin pills a day, which he has been doing though we were prescribing 5 a day. ALLERGIES: No known drug allergies. MEDICATIONS: Nabumetone 500 mg twice a day, Cymbalta 30 mg tablets twice a day, Neurontin 300 mg tablets 3 tablets twice a day, hydrocodone 10/325 five times a day, Pooja Back and Body caplets twice a day, lisinopril/hydrochlorothiazide 10/12.5 once a day and amlodipine 10 mg daily. PQRS: 1. He has no history of osteoarthritis or rheumatoid arthritis. 2. Height is 6 feet, weight is 190, BMI is 25.8. Vital signs: 139/77, pulse is 75, respirations 16, oxygen sat is 100. 2. Pain score is 8. 3. Fall risk: Denies dizziness, in a motorized wheelchair today, has not fallen in the last 3 months. 4. The patient denies blood thinners. 5. Has a history of hypertension. 6. Opioid therapy is greater than 6 weeks. He does have an opioid contract on the chart. 7. His risk assessment is low. His functional assessment is 65/70. 8. Recreational drug use. He denies. He is not a [place] [address] PAIN MANAGEMENT CONSULTATION Name: ERICK WOODS Room #: REG WILLIAM Oliveira#: [id number] Admission: 02/19/18 Attend Phys: Kimmie Talavera Discharge: Date of : 53 Report #: [id number] alcohol. Did check the prescription monitoring system. The patient filled appropriately. Last fill is greater than 30 days ago. PHYSICAL EXAMINATION: GENERAL: This is a well-developed, well-nourished white gentleman who appears his stated age. He is in a wheelchair today. He is alert and orientated. He is a good historian. Very tearful today. HEENT: Normocephalic, atraumatic. Extraocular eye muscles are intact. Mucous membranes are moist. MUSCULOSKELETAL: In a wheelchair, noted weakness in his upper and lower extremities, complains of low back pain. Some involuntary movements are noted in his lower extremities. We reviewed the fact that opiate medications are being used to provide analgesia adequate to support activities of daily living, not attempting to achieve a specific pain score on the 0-10 Visual Analog Scale. The current opiate medications are providing sufficient analgesia to allow the patient to participate in activities of daily living. The patient is not exhibiting any aberrant behavior suggestive of drug diversion. The patient is not having any adverse reactions to medications. The patient is not suffering from daytime somnolence or mental acuity changes. The patient is managing opiate-induced constipation with appropriate [id number] agents and dietary considerations. The patient was counseled on concern for caution with operating a motor vehicle while using opiate medications. A physical exam was performed and the patient's functional status was evaluated. All patients with back pain were advised against the bed rest greater than 4 days and were advised to return to normal activities. Pain score assessment was noted and the treatment plan was reviewed with the patient. All current medications, both prescribed and OTC were reviewed and reconciled on the electronic medical record. Tobacco screening was accomplished and smoking cessation was advised when indicated. BMI was noted and diet/exercise modification was recommended for all patients following outside normal parameters. I reviewed with the patient today their responsibilities to safeguard prescription medications, reviewed their responsibility to utilize medications only as prescribed by the physician. They are to seek and receive pain medications only from 1 physician group ([facility]). They are to use 1 pharmacy and keep the clinic informed if they change pharmacies. Their responsibilities include making followup visits in a timely fashion and to avoid abrupt discontinuation of medication usage. Their responsibilities further include bringing their medications (bottles from the pharmacy with residual pills) to the visit for possible confirmation of pill counts and the patient understands it is their responsibility to submit to random drug screens to ensure both that the medications prescribed are present, and that no other [facility] [address] [place] [address] PAIN MANAGEMENT CONSULTATION Name: PEGGY,ERICK WOLFE Room #: REG WILLIAM Oliveira#: [id number] Admission: 02/19/18 Attend Phys: Kimmie Talavera Discharge: Date of : 53 Report #: [id number] controlled substances are present. All prescriptions provided today were generated electronically. IMPRESSION: 1. Chronic pain syndrome secondary to muscular sclerosis. 2. Depression. 3. Neurogenic bladder. 4. Abnormal involuntary movements. 5. Spasticity. 6. Skin sensation disturbances. PLAN: 1. We discussed treatment options with this patient today. The patient is wanting to increase his Boscobel to 6 tablets a day. He feels that his pain medicine does run out after about 4 hours and he is unable to take his medicine again for 2 more hours and he has increased pain during this time frame. I did discuss possible return to a long-acting medication and then continue some hydrocodone for breakthrough pain medicine. This would be a decrease in his hydrocodone use, but overall increase in his MME. The patient's current MME dose is 50 MMEs per day with his hydrocodone 10/325. I discussed this option with Dr. Brad Nation. He believes that the patient needs to seek further treatment for his MS and discussed this with Dr. Rajesh Marroquin. I did talk with the patient regarding treatment options for his MS. He tells me that Dr. Marroquin says there is nothing more that he has to offer since he has tried most of his medicines options. Per the dictation in November from Dr. Rajesh Marroquin, it does talk about another trial of another type of medicines. The patient tells me that he is palliative as far as his MS goes. At the end, it was decided to keep his Boscobel at 10/325 at 5 tablets a day. 2. The patient is very tearful on this visit. We had started him on Cymbalta 30 mg once a day for a week, then increase to 60 mg. He has been taking 60 mg for about 3 weeks. I believe that he still needs an increase in this. I think that the Cymbalta will help with his depression as well as his neuropathy. We will increase him to 90 mg of this a day. 3. The patient will continue on his naproxen twice a day 500 mg, #60 with no refills given. 4. Gabapentin 300 mg, takes 900 in the morning and 900 in the evening. Script given for 150 with one refill of this medication. The patient tells me that he has increased this recently and it has been somewhat helpful. 5. I discussed the patient returning to Dr. Rajesh Marroquin to discuss other treatment options for his MS and if Dr. Rajesh Marroquin thinks that he needs an increase in his medications per narcotic use, he is able to have him write for them and then he can no longer see us. The patient at this time wants to continue seeing us, tells me that it is convenient for him to come to this pain clinic with his primary care doctor upstairs. He understands that we will keep him where he is on his current pain regime right now. Has some questions regarding why we cannot increase since he is palliative but understands that at [facility] [address] [place] [address] PAIN MANAGEMENT CONSULTATION Name: ERICK WOODS Room #: REG CLDayana George.#: [id number] Admission: 02/19/18 Attend Phys: Kimmie Talavera Discharge: Date of : 53 Report #: [id number] this time, we will try just with the increase of his Cymbalta. 6. The patient made an appointment for 1 month time. We will see how the increase of his Cymbalta has done and readdress medications and plan of care at that time. 7. The patient seen in collaboration today with Dr. Brad Nation. <ELECTRONICALLY SIGNED> By: Kimmie Talavera 02/20/18 [id number] Kimmie Talavera /nt
== END ==
LOC: PAIN 07:23
DX: G37.9 Demyelinating disease of central nervous system, unspecified (principal); G89.4 Chronic pain syndrome; N31.2 Flaccid neuropathic bladder, not elsewhere classified; F32.9 Major depressive disorder, single episode, unspecified; R25.2 Cramp and spasm; R25.9 Unspecified abnormal involuntary movements; R20.9 Unspecified disturbances of skin sensation

== ENCOUNTER → 2018-03-15 | Outpatient (CLI) | payer OTHER ==
[~2018-03-15] VITALS: Ht 182.9 cm; Wt 129.3 kg
[2018-03-15 14:23] VITALS: BP 152/84
--- NOTE | 2018-03-15 14:36 | NUR ---
Pain Clinic Assessment: 1. History of Osteoarthritis: Not Applicable History of Rheumatoid Arthritis: Not Applicable 2. Height: 6 ft. 0 in. 182.9 cm. Weight: 285.0 lb. oz. 129.276 kg. Patient's BMI: 38.6 3. Vital Signs: BP: 152/84 Pulse: 80 Resp: 14 Temp: 02 Sat: 94 ECG Mon: 4. Pain Intensity: 7-8 5. Fall Risk: Dizziness: N Needs help standing or walking: Y Fallen in the last 3 months: N Fall risk comments: 6. Patient on Blood Thinner: None 7. History of Hypertension: Y 8. Opioid Therapy greater than 6 weeks: N Opiate Contract Signed: 9. Risk Assessment Tool Provided: LOW RISK / 10. Functional Assessment Tool: 65/70 11. Recreational Drug Use: Never Drug Type: Tobacco Use: Never Smoker Tobacco Type: Amount or Packs/day: How Many Years: Alcohol Use: Past use Frequency: Quant:
--- NOTE | 2018-03-22 16:49 | HPC ---
[facility] [address] [address] PAIN MANAGEMENT CONSULTATION Name: ERICK WOODS Room #: REG WILLIAM Tee#: [id number] Admission: 03/15/18 Attend Phys: Luanne Altamirano MD Discharge: Date of : 53 Report #: [id number] THIS REPORT FOR: //name// CC: Brad Altamirano DATE OF SERVICE: 03/15/2018 CHIEF COMPLAINT: Here for medication renewal. FOLLOWUP HISTORY: The patient is a 62-year-old gentleman who has been followed in the pain clinic. As you may recall, he suffers from multiple sclerosis. He continues to have low back pain. He feels that his pain is not adequately controlled. Rates it as a 7-8/10. He is having pain in both legs, both feet. Continues to have muscle spasms with numbness. Notes the pain is exacerbated when he is sitting still. Finds that heat and activity also exacerbate his discomfort. He feels his medications are helpful. Feels that the opioid medications do not last long enough. He feels that as his condition worsens his pain continues to increase. Finds that this is challenging. ALLERGIES: No known drug allergies. CURRENT MEDICATIONS: Nabumetone 500 mg b.i.d., Cymbalta 30 mg b.i.d., Neurontin 300 mg twice a day, hydrocodone 10/325, Pooja Back and Body caplets b.i.d., lisinopril/hydrochlorothiazide 10/12.5 once daily, amlodipine 10 mg. PAIN CLINIC ASSESSMENT/PQRS: 1. The patient is not being treated for osteoarthritis or rheumatoid arthritis. 2. Height 6 feet 0 inches, weight 285 pounds, BMI is 38.6. 3. Vital signs: Blood pressure 152/84, pulse 80, respiratory rate 16, saturation 94%. 4. Pain intensity 7-8/10. 5. Fall risk. The patient has not fallen in the last 3 months. 6. Blood thinner. The patient is not on a blood thinning medication. 7. Hypertension. The patient is being treated for hypertension. 8. Opioids greater than 6 weeks. The [facility] 9. Risk assessment tool, 02/14 for opioid use low. 10. Functional assessment tool . 11. Recreational drug use. The patient denies use of recreational drugs. 12. Tobacco: The patient has never smoked. 13. Alcohol: The patient denies use of alcoholic beverages. PHYSICAL EXAMINATION: GENERAL: The patient is a well-developed, well-nourished white male. Appears his stated age. He is accompanied by his . He is [place] [address] PAIN MANAGEMENT CONSULTATION Name: ERICK WOODS YANETH Room #: REG WILLIAM Oliveira#: [id number] Admission: 03/15/18 Attend Phys: Luanne Altamirano MD Discharge: Date of : 53 Report #: [id number] alert and oriented x 3. Affect is appropriate. He does become tearful during the interview. States that his pain medications are not helping as much as he needs. HEENT: Normocephalic, atraumatic. Extraocular eye muscles intact. Mucous membranes appear normal. MUSCULOSKELETAL: The patient is sitting in a wheelchair. Has some weakness in the upper as well as the lower extremities. Complains of low back pain. Some involuntary movements in his lower extremity. IMPRESSION: 1. Chronic pain syndrome secondary to multiple sclerosis. 2. Depression. 3. Neurogenic bladder. 4. Abnormal involuntary movements. 5. Spasticity. 6. Skin sensation disturbance. RECOMMENDATIONS: We discussed treatment options with the patient and his for about 20 minutes. We explained the limitations of use of opioid medications as described by the CDC. Again, he is on opioid medications. We explained to him the need for using a intermediate accountant opioid medication as well as a short-term. We will decrease his hydrocodone 10/325 from 5 tablets daily to 1 tablet every 6 hours. The patient will start with MS Contin 15 mg 1 p.o. daily. We explained the differences between the use of hydrocodone, which has a short half-life as well as morphine via MS Contin. He will try this medication for the next 2 months. Again, we will evaluate it with the possibility of increasing his opioid medications from methadone 10 mg daily to 10 mg b.i.d. This will still keep him under the 90 morphine equivalents as prescribed by the CDC. We would like to thank you for letting us participate in his care. Hopefully, he continues to improve. <ELECTRONICALLY SIGNED> By: Luanne Altamirano MD 03/22/18 1649 [id number] 09 Luanne Altamirano MD /golden
== END ==
LOC: PAIN 07:23
DX: G35 Multiple sclerosis (principal); G89.4 Chronic pain syndrome; R25.2 Cramp and spasm; N31.2 Flaccid neuropathic bladder, not elsewhere classified; R25.9 Unspecified abnormal involuntary movements; F32.9 Major depressive disorder, single episode, unspecified; R20.9 Unspecified disturbances of skin sensation; Z79.899 Other long term (current) drug therapy

== ENCOUNTER → 2018-05-03 | Outpatient (CLI) | payer OTHER ==
[~2018-05-03] VITALS: Ht 182.9 cm; Wt 86.2 kg
[2018-05-03 10:00] VITALS: BP 128/77
--- NOTE | 2018-05-03 10:12 | NUR ---
Pain Clinic Assessment: 1. History of Osteoarthritis: Not Applicable History of Rheumatoid Arthritis: Not Applicable 2. Height: 6 ft. 0 in. 182.9 cm. Weight: 190.0 lb. oz. 86.184 kg. Patient's BMI: 25.8 3. Vital Signs: BP: 128/77 Pulse: 70 Resp: 14 Temp: 02 Sat: 100 ECG Mon: 4. Pain Intensity: 8 5. Fall Risk: Dizziness: N Needs help standing or walking: Y Fallen in the last 3 months: N Fall risk comments: 6. Patient on Blood Thinner: None 7. History of Hypertension: Y 8. Opioid Therapy greater than 6 weeks: N Opiate Contract Signed: 9. Risk Assessment Tool Provided: LOW RISK 02/14 10. Functional Assessment Tool: 11. Recreational Drug Use: Never Drug Type: Tobacco Use: Never Smoker Tobacco Type: Amount or Packs/day: How Many Years: Alcohol Use: Past use Frequency: Quant:
--- NOTE | 2018-05-06 16:35 | HPC ---
[facility] [place] [address] PAIN MANAGEMENT CONSULTATION Name: ERICK WOODS Room #: REG WILLIAM Oliveira#: [id number] Admission: 05/03/18 ������������������ Attend Phys: Kimmie Talavera Discharge: ������������������ Date of : 53 Report #: [id number] THIS REPORT FOR: //name// CC: Kimmie Gallardo DATE OF SERVICE: 05/03/2018 CHIEF COMPLAINT: Here for chronic pain secondary to his multiple sclerosis and pain in his lower back. HISTORY OF PRESENT ILLNESS: This is a 62-year-old gentleman who is followed in the pain clinic for some time now. He suffers from multiple sclerosis. He is in a wheelchair. He continues to have low back pain and bilateral feet and leg pain. He has numbness and spasms in his legs, rating his pain score of 8/10 today. He tells me that medications are helpful. We had started him on morphine 15 mg at bedtime. Last month, he finds that this was helping him with his pain during the night and allowing him to sleep a little better. He continues to take his hydrocodone 10/325 four times throughout the day. The patient tells me he wishes that he could take 1 extra hydrocodone a day as well. He tells me that he is not taking his Cymbalta every day. He feels like he is not needing it. He also has stopped his nabumetone because he heard that he was not supposed to take that along with his Pooja aspirin Back and Body. He tells me that he is trying to be as active as possible. He has noticed that his legs have been increasing with some swelling, but they are relieved when he elevates them. His is here present with him today. ALLERGIES: No known drug allergies. MEDICATIONS: Hydrocodone 10/325 up to 4 times a day, gabapentin 300 mg 3 tablets b.i.d., Cymbalta 300 mg p.r.n., MS Contin 15 mg at bedtime, Pooja Back and Body caplet daily, lisinopril, hydrochlorothiazide daily and amlodipine 10 mg daily. PQRS: 1. The patient is not being treated for osteoarthritis or rheumatoid arthritis. 2. Height is 6 feet, weight is 190, BMI is 25. 3. Vital signs: Blood pressure 128/77, pulse is 70, respirations 14, oxygen sat 100. 4. Pain score is 8/10. 5. Fall risk. Denies dizziness. He does need help walking and standing and is in a wheelchair today. He has not fallen in the last 3 months. 6. The patient is not on any blood thinners, but does take medicine for hypertension. 7. Opiate therapy is greater than 6 weeks; therefore, an opioid signed contract is on the chart. His risk assessment tool is low. His functional assessment is [address] [address] PAIN MANAGEMENT CONSULTATION Name: ERICK WOODS Room #: REG [facility].#: [id number] Admission: 05/03/18 ������������������ Attend Phys: Kimmie Talavera Discharge: ������������������ Date of : 53 Report #: [id number] 65/70. The patient does not drink alcohol, does not smoke and does not use recreational drugs. PHYSICAL EXAMINATION: GENERAL: This is a well-developed, well-nourished white gentleman who appears his stated age. He is accompanied with his today. He is in a motorized wheelchair. MENTAL STATUS EXAMINATION: He is alert and orientated and his affect is appropriate. States his medications are more helpful than they had been in the past. HEENT: Normocephalic, atraumatic. Extraocular eye muscles are intact. Mucous membranes are moist. MUSCULOSKELETAL: The patient is sitting in a wheelchair. He does have slight edema of 1+ in his lower extremities, bilateral. He complains of low back pain. He does have some involuntary movements in his lower extremities. ASSESSMENT: 1. Chronic pain syndrome secondary to multiple sclerosis. 2. Depression. 3. Neurogenic bladder. 4. Abnormal involuntary movements. 5. Spasticity. 6. Skin sensation disturbances. We reviewed the fact that opiate medications are being used to provide analgesia adequate to support activities of daily living, not attempting to achieve a specific pain score on the 0-10 Visual Analog Scale. The current opiate medications are providing sufficient analgesia to allow the patient to participate in activities of daily living. The patient is not exhibiting any aberrant behavior suggestive of drug diversion. The patient is not having any adverse reactions to medications. The patient is not suffering from daytime somnolence or mental acuity changes. The patient is managing opiate-induced constipation with appropriate [id number] agents and dietary considerations. The patient was counseled on concern for caution with operating a motor vehicle while using opiate medications. A physical exam was performed and the patient's functional status was evaluated. All patients with back pain were advised against the bed rest greater than 4 days and were advised to return to normal activities. Pain score assessment was noted and the treatment plan was reviewed with the patient. All current medications, both prescribed and OTC were reviewed and reconciled on the electronic medical record. Tobacco screening was accomplished and smoking cessation was advised when indicated. BMI was noted and diet/exercise modification was recommended for all patients following outside normal parameters. [address] [address] PAIN MANAGEMENT CONSULTATION Name: ERICK WOODS Room #: REG [facility].#: [id number] Admission: 05/03/18 ������������������ Attend Phys: Kimmie MAY Minlaureen Discharge: ������������������ Date of : 53 Report #: [id number] I reviewed with the patient today their responsibilities to safeguard prescription medications, reviewed their responsibility to utilize medications only as prescribed by the physician. They are to seek and receive pain medications only from 1 physician group ( [facility]). They are to use 1 pharmacy and keep the clinic informed if they change pharmacies. Their responsibilities include making followup visits in a timely fashion and to avoid abrupt discontinuation of medication usage. Their responsibilities further include bringing their medications (bottles from the pharmacy with residual pills) to the visit for possible confirmation of pill counts and the patient understands it is their responsibility to submit to random drug screens to ensure both that the medications prescribed are present, and that no other controlled substances are present. All prescriptions provided today were generated electronically. PLAN: 1. We discussed treatment options with this patient today. He tells me that his MS Contin 15 mg has been helpful in helping him sleep more and relieving his pain during the nighttime hours. He would like to have an extra hydrocodone pill to increase that to 5 times a day. I explained to him that, therefore, he would be over the allotted SHIRLEY that we are trying to keep our patients at. Currently per the CDC guidelines, he is falling at around 55 morphine mEq a day. If we did increase his hydrocodone, we would have to decrease his morphine. The patient does talk about he does not feel the high that the hydrocodone gives him with the morphine. I explained that it is a long-acting medicine, you are not supposed to fill that, you have a steady state in your blood levels when you are taking that. I offered to give him MS Darin twice a day and to decrease his hydrocodone to see if that would help make his pain more constant level. The patient states that he would like to stay where he is at right now. We did check the prescription monitoring system and the patient is filling appropriately of all of these narcotics that we have given him. 2. The patient tells me that he was told he was not supposed to take his nabumetone twice a day along with his Back and Body Pooja aspirin. I did have Dr. Altamirano come in and talk to the patient about this as well. I told him that he could take one of his nabumetone a day or even up to 2 if he needs to as well as with his medicine for his Back and Body Pooja aspirin. Dr. Altamirano did reiterate this with the patient and the patient will restart taking this 1-2 tablets a day. He feels that is very helpful in reducing some of his inflammation and it also helps reduce some of his swelling in his legs, he believes. No scripts given for this medication today since he has plenty at home. 3. We did talk about CBD oil and medical marijuana. The patient says he has heard that marijuana has helped multiple sclerosis patients. He tells me he does not have any desire to smoke marijuana, but he was interested in possibly using the gummies when it becomes legal if that may be an option, but he is very interested currently in trying the CBD oil. We did talk about pros and cons for [facility] [address] [place] [address] PAIN MANAGEMENT CONSULTATION Name: REUBEN WOODSEY YANETH Room #: REG WILLIAM Oliveira#: [id number] Admission: 05/03/18 ������������������ Attend Phys: Kimmie Talavera Discharge: ������������������ Date of : 53 Report #: [id number] this for a significant amount of time and he will try some CBD oil and see if that also helps reduce some of his pain. 4. Script was given for MS Contin 15 mg #30, for today and 4-week release; hydrocodone 10/325, #120 for today and 4-week release and his gabapentin was also refilled today. 5. Dr. Altamirano did see the patient today and collaborated with care. The patient will make an appointment in 2 months. ��������������������������������������������� <ELECTRONICALLY SIGNED> ���������������������������������������� By: Kimmie Talavera ��������������������������������������������� 05/06/18 1635 [id number] Kimmie Talavera /golden
== END ==
LOC: PAIN 06:50
DX: G89.4 Chronic pain syndrome (principal); M54.5 Low back pain; G35 Multiple sclerosis; F32.9 Major depressive disorder, single episode, unspecified; N31.2 Flaccid neuropathic bladder, not elsewhere classified; R25.2 Cramp and spasm; R25.8 Other abnormal involuntary movements; R20.9 Unspecified disturbances of skin sensation; Z79.899 Other long term (current) drug therapy

== ENCOUNTER → 2018-06-20 | Outpatient (CLI) | payer OTHER ==
[~2018-06-20] VITALS: Ht 182.9 cm; Wt 86.2 kg
[2018-06-20 11:18] VITALS: BP 140/74
--- NOTE | 2018-06-20 11:19 | NUR ---
Pain Clinic Assessment: 1. History of Osteoarthritis: Not Applicable History of Rheumatoid Arthritis: Not Applicable 2. Height: 6 ft. 0 in. 182.9 cm. Weight: 190.0 lb. oz. 86.184 kg. Patient's BMI: 25.8 3. Vital Signs: BP: 140/74 Pulse: 75 Resp: 16 Temp: 02 Sat: 99 ECG Mon: 4. Pain Intensity: 9 5. Fall Risk: Dizziness: N Needs help standing or walking: N Fallen in the last 3 months: N Fall risk comments: 6. Patient on Blood Thinner: None 7. History of Hypertension: Y 8. Opioid Therapy greater than 6 weeks: N Opiate Contract Signed: 9. Risk Assessment Tool Provided: LOW RISK 02/14 10. Functional Assessment Tool: 65/70 11. Recreational Drug Use: Never Drug Type: Tobacco Use: Never Smoker Tobacco Type: Amount or Packs/day: How Many Years: Alcohol Use: Past use Frequency: Quant:
--- NOTE | 2018-06-24 14:59 | HPC ---
[facility] [address] [address] PAIN MANAGEMENT CONSULTATION Name: ERICK WOODS Room #: REG Dayana Tee#: [id number] Admission: 06/20/18 ������������������ Attend Phys: Kimmie Talavera Discharge: ������������������ Date of : 53 Report #: [id number] THIS REPORT FOR: //name// CC: Kimmie Gallardo DATE OF SERVICE: 06/20/2018 CHIEF COMPLAINT: Chronic pain secondary to muscular sclerosis and lower back pain, receiving medications for palliative measures. HISTORY OF PRESENT ILLNESS: This is a 62-year-old gentleman who returns to the pain clinic today for treatment for his muscular sclerosis and his chronic low back pain. He tells me he has recently seen Dr. Gallardo who talked to him about starting home health care, physical therapy and nursing care or his other option would be to enter a alf since he feels that he is treating him palliatively for his medications and end stage of his multiple sclerosis. The patient tells me he did recently see his neurologist, though no new medications were started by that doctor. The patient does complain of low back pain, legs and feet pain as well as spasms. He tells me his pain is 9/10. It seems like it has been getting worse. He denies any problems with constipation or daytime sleepiness. He does not sleep well at night though. He usually reclines in his recliner for his resting hours. He said sitting still and heat and increase activity make his pain worse. Medication and activity are helpful, though not as helpful as they used to be. He is wondering about any changes that could be made possibly to his pain medicines. ALLERGIES: No known drug allergies. CURRENT MEDICATIONS: Morphine ER 15 mg daily, Neurontin 300 mg 3 tablets b.i.d., hydrocodone 10/325 up to 4 tablets a day, Aspercreme daily or bath cum body care daily, lisinopril/hydrochlorothiazide daily and amlodipine daily. PQRS: 1. He is not being treated for osteoarthritis or rheumatoid arthritis. 2. Height is 6 feet, weight is 190, BMI is 25. 3. Vital signs: Blood pressure 140/74, pulse is 75, respirations 16, oxygen sat is 99. Pain score 9/10 4. Fall risk: Denies dizziness. Does need help walking. He is in a motorized wheelchair today. He has not fallen in the last 3 months. 5. The patient is not on any blood thinners. He does take medicine for hypertension. His opioid therapy is greater than 6 weeks; therefore, an opioid contract on the chart. 6. His risk assessment tool is low. His functional assessment is 65-[address] [address] PAIN MANAGEMENT CONSULTATION Name: PEGGYERICK YANETH Room #: REG WILLIAM Oliveira#: [id number] Admission: 06/20/18 ������������������ Attend Phys: Kimmie Talavera Discharge: ������������������ Date of : 53 Report #: [id number] 7. Recreational drug use, he denies. He is not a smoker and he has used alcohol in the past. 8. We did check the prescription monitoring system. The patient is filling appropriately, though he is here a week early for his medications and we will check a drug screen on this patient on the next visit. PHYSICAL EXAMINATION: GENERAL: This is a well-developed white gentleman who appears his stated age, placing his current pain score today at 9/10. He is accompanied with his and he is in a wheelchair. He does become tearful throughout the interview process today. HEENT: Normocephalic, atraumatic. Extraocular eye muscles are intact. Mucous membranes are moist. MUSCULOSKELETAL: He is sitting in a wheelchair. He has weakness in his upper extremities. His lower extremities, there is noticeable atrophy of his extremities. He has some involuntary movements also in his lower extremities. He does complain of lower back pain. IMPRESSION: 1. Chronic pain syndrome secondary to multiple sclerosis, treated palliatively. 2. Depression. 3. Neurogenic bladder. 4. Abnormal involuntary movements. 5. Spasticity. 6. Skin sensation disturbance. 7. Complex medical management in terms of written opioid agreement. PLAN: We discussed treatment options with this patient and his today, spending at least 25 minutes. We explained the CDC guidelines. Again, the patient is currently taking 55 morphine mEq. He feels that the MS Contin does not last long enough or he would need more hydrocodone to keep him more comfortable. Dr. Gallardo did discuss with him either home therapy, which he is planning on starting next week or entering alf. He chose to try at least to start the therapy to keep him as active as possible, but he knows that his pain has been increasing, request changes. I explained to him that we are trying to keep people within the CDC guidelines, but I believe since his disease is progressing, we would be able to give him morphine 15 mg twice a day, taking them at 9 and 9 with his hydrocodone base throughout the day to see if he achieves better pain control. I explained to him that we will not be able to go up any higher than this and that puts him at 70 morphine mEq a day and would be required to see me every 2 months. The patient verbalizes understanding. He feels that this is what the neurologist had mentioned to him in the past for a trial of this medicine. I encouraged the patient to be active as possible. When the therapists are not [facility] [address] [place] [address] PAIN MANAGEMENT CONSULTATION Name: PEGGYERICK WOLFE Room #: REG CL M.R.#: [id number] Admission: 06/20/18 ������������������ Attend Phys: Kimmie Talavera Discharge: ������������������ Date of : 53 Report #: [id number] there doing his exercises, he needs to have his help him or do his exercises himself because the body does like motion and less he uses it the more stiffness and spasms he will have. Scripts also given today for hydrocodone 10/325, #120, to release just in a week; MS Contin 15 mg, #60; he does not need gabapentin today and he will follow up with us in 1 month time period. He is not due to fill his medications for a week, so this trial should start around 06/28/2018. The patient verbalizes understanding. An Appointment made for followup. Dr. Lam Mcnamara did come and see the patient and discussed the above treatment and collaborated care today. ��������������������������������������������� <ELECTRONICALLY SIGNED> ���������������������������������������� By: Kimmie Talavera ��������������������������������������������� 06/24/18 1459 [id number] 0112 Kimmie Talavera /nt
== END ==
LOC: PAIN 06:51
DX: G89.29 Other chronic pain (principal); G35 Multiple sclerosis; F32.9 Major depressive disorder, single episode, unspecified; Z79.891 Long term (current) use of opiate analgesic; Z79.899 Other long term (current) drug therapy

== ENCOUNTER → 2018-07-19 | Outpatient (CLI) | payer OTHER ==
[~2018-07-19] VITALS: Ht 182.9 cm; Wt 81.6 kg
--- NOTE | ~2018-07-19 | HPC ---
[facility] [address] [place] [address] PAIN MANAGEMENT CONSULTATION Name: ERICK WOODS Room #: REG WILLIAM Oliveira#: [id number] Admission: 07/19/18 ������������������ Attend Phys: Luanne Altamirano MD Discharge: ������������������ Date of : 53 Report #: [id number] THIS REPORT FOR: //name// CC: Brad Altamirano DATE OF SERVICE: 07/19/2018 CHIEF COMPLAINT: Chronic pain because of multiple sclerosis. FOLLOWUP HISTORY: The patient is a 62-year-old gentleman who has been followed in the pain clinic because of chronic pain. He suffers pain in both legs, feet and continues to have significant muscle spasms. He feels that his medications are helpful, but not really covering the amount of pain that he is experiencing. He states that he has help at home. He notes that if he takes both of his oxycodone tablets at one time then he notes a better relief. Feels that the hydrocodone tablets are more noticeable when he takes them. He feels that his pain medications continue to wear off, if he takes his medications 2 tablets at that time, he can run out of pain medication. He feels that his situation is ____. States that he understands the problem with opioid medications. He feels that he may not be around next year, given the speed at which his disease is progressing. He would like an increase in his medications as we are able to. ALLERGIES: No known drug allergies. CURRENT MEDICATIONS: Nabumetone 500 mg b.i.d., Cymbalta 300 mg b.i.d., Neurontin 300 mg twice a day, hydrocodone 10/325, lisinopril/hydrochlorothiazide 10 mg/12.5, amlodipine 10 mg, and MS Contin 15 mg one p.o. b.i.d. PAIN CLINIC ASSESSMENT AND PQRS: 1. The patient is not being treated for osteoarthritis or rheumatoid arthritis. 2. Height 6 feet 0, weight 180 pounds, BMI is 24.4. 3. VITAL SIGNS: Blood pressure 131/79, pulse 66, respiratory rate 18, room air saturation 99%. 4. Pain intensity 6-7/10. 5. Fall history: The patient has not fallen in the last 3 months. 6. Blood thinner. The patient is not on a blood thinning medication. 7. Hypertension. The patient is being treated for hypertension. 8. Opiates greater than 6 weeks. The patient receives his medications from one source, the pain clinic. 9. Risk assessment tool, low for opioid use. 10. Functional assessment tool 65/70. 12. Recreational drug use. The patient denies use of recreational drugs. 13. Tobacco: The patient has never smoked. 14. Alcohol: The patient denies frequent use of alcoholic beverages. [facility] [address] [place] [address] PAIN MANAGEMENT CONSULTATION Name: ERICK WOODS Room #: REG [facility] Tee#: [id number] Admission: 07/19/18 ������������������ Attend Phys: Luanne Altamirano MD Discharge: ������������������ Date of : 53 Report #: [id number] PHYSICAL EXAMINATION: GENERAL: The patient is a well-developed, well-nourished white male. Appears his stated age. He is alert and oriented x 3. His affect is appropriate. Speech is fluent. HEENT: Normocephalic, atraumatic. Extraocular eye muscles intact. Sclerae nonicteric. Mucous membranes are moist. NECK: Without adenopathy or JVD. MUSCULOSKELETAL: The patient is in a wheelchair. He has a blanket on him. It is somewhat cool in the room. He does become tearful during the interview. He states that his pain is quite problematic. He would like to have more pain medicine now because next year he may not be alive to use it. The patient has weakness in his upper extremity as well as in his lower extremities. He uses the powered electric wheelchair to ambulate. IMPRESSION: 1. Chronic pain syndrome secondary to multiple sclerosis, treated palliatively. 2. Depression. 3. Neurogenic bladder. 4. Abnormal involuntary muscles. 5. Spasticity. 6. Skin sensation disturbance. 7. Complex medical management. RECOMMENDATIONS: We discussed treatment options with the patient. We again explained to the patient the limitations that we have. The patient was started on hydrocodone medication. We have continued to increase his opioid, morphine equivalents since January. We have explained to him that there is a limit as to how fast and how much medication that we can give. Our hands are somewhat tied by the [facility] [place] 2]. We explained to him that we will give him as much medicine as we can to help quell his chronic terrible pain. The patient thanked us and states that he understands and would like for us to continue to increase/provide medications to control his pain as rapidly as possible. He feels that he may not be alive next year. We explained that we will definitely keep this in mind and are doing everything that we can to, give him medication to prevent him from suffering. A script for his medications of nabumetone 500 mg ____ tablets 1 p.o. b.i.d., hydrocodone 10/325, total of 120 tablets and MS Contin 15 mg 1 p.o. b.i.d. have been rewritten. The patient will also continue with gabapentin 180 mg tablets. He will call us if he has any concerns. We would like to thank you for letting us participate in his care. We hope he continues to improve. ��������������������������������������������� ���������������������������������������� By: ��������������������������������������������� [id number] [id number] Luanne Altamirano MD /nt
[2018-07-19 08:51] VITALS: BP 131/79
--- NOTE | 2018-07-19 08:59 | NUR ---
Pain Clinic Assessment: 1. History of Osteoarthritis: Not Applicable History of Rheumatoid Arthritis: Not Applicable 2. Height: 6 ft. 0 in. 182.9 cm. Weight: 180.0 lb. oz. 81.648 kg. Patient's BMI: 24.4 3. Vital Signs: BP: 131/79 Pulse: 66 Resp: 18 Temp: 02 Sat: 99 ECG Mon: 4. Pain Intensity: 6-7 5. Fall Risk: Dizziness: N Needs help standing or walking: N Fallen in the last 3 months: N Fall risk comments: 6. Patient on Blood Thinner: None 7. History of Hypertension: Y 8. Opioid Therapy greater than 6 weeks: Y Opiate Contract Signed: 03/29/17 9. Risk Assessment Tool Provided: LOW RISK 02/14 10. Functional Assessment Tool: 11. Recreational Drug Use: Never Drug Type: Tobacco Use: Never Smoker Tobacco Type: Amount or Packs/day: How Many Years: Alcohol Use: Past use Frequency: Quant:
== END ==
LOC: PAIN 06:46
DX: G35 Multiple sclerosis (principal); G89.4 Chronic pain syndrome; F32.9 Major depressive disorder, single episode, unspecified; N31.2 Flaccid neuropathic bladder, not elsewhere classified; R25.2 Cramp and spasm; R25.9 Unspecified abnormal involuntary movements; R20.9 Unspecified disturbances of skin sensation; Z79.899 Other long term (current) drug therapy

== ENCOUNTER 2018-09-18 04:27 | Inpatient (IN) | payer OTHER ==
[~2018-09-18] VITALS: Ht 185.4 cm; Wt 81.6 kg
--- NOTE | ~2018-09-18 | HC ---
[facility] [place] [address] CONSULTATION Name: ERICK WOODS Room #: 424-P ADM IN M.R.#: [id number] Admission: 09/18/18 Attend Phys: Isaac Curry MD Discharge: Date of : 53 Report #: [id number] THIS REPORT FOR: //name// CC: Brad Curry DATE OF SERVICE: 09/19/2018 HISTORY OF PRESENT ILLNESS: The patient is a 62-year-old white male with history of multiple sclerosis x 10 years with lower extremity paraplegia, premorbidly wheelchair bound, was able to transfer himself with a stand pivot type transfer up until about 3 days ago. He has had problems with decreased appetite, nausea, vomiting, and abdominal pain. He was diagnosed with acute sigmoid diverticulitis with sepsis, acute cystitis as well as toxic metabolic encephalopathy. He had a significant decline in his functional independence. He has been using more of a sliding board type transfer and has needed increasing assistance by family. He is now being seen in rehabilitation medicine consultation. PAST MEDICAL HISTORY: Includes the multiple sclerosis. He has been cared for by Dr. Rajesh Marroquin in Neurology. He tried Copaxone for a couple of years and has also tried to more recent oral multiple sclerosis medication without efficacy. He has gone drug-free over approximately the last 6-8 months with essentially failed medical management. He does have a history of chronic pain syndrome, opiate dependence, and history of hypertension. MEDICATIONS: Please see the full medication listing. SOCIAL HISTORY: Lives with his in a house, no steps. His is retired. There is a daughter that lives across the street and an involved son. There are neighbors that have a wheelchair van that he can utilize. He sponge bathe himself and premorbidly was able to dress his upper body while his assisted in dressing his lower body. He utilized a condom catheter. REVIEW OF SYSTEMS: As noted above. No current chest pain or shortness of breath. Denies any current abdominal discomfort. No current nausea or vomiting. Uses a condom catheter as noted above. No focal extremity pain complaints. He does have the lower extremity extensor tone and uses a leg strap as far as flexing both knees, prior to attempted standing. He does have the chronic pain syndrome. No current fever, chills, or headache. Some frustration with his condition. PHYSICAL EXAMINATION: GENERAL: A pleasant 62-year-old white male in no obvious distress. VITAL SIGNS: Last recorded temperature 36.8, pulse 65, respirations 16, blood pressure 132/76. He is alert, pleasant. [address] [address] CONSULTATION Name: ERICK WOODS MARSHALL Room #: [facility] IN M.R.#: [id number] Admission: 09/18/18 Attend Phys: Isaac Curry MD Discharge: Date of : 53 Report #: [id number] HEENT: Appeared to be benign. He appears to have some lateral nystagmus. Facies are symmetric. EXTREMITIES: Left upper extremity is a little bit weaker than the right, probably grade 4-, right is more of 4- to 4. He does have some decreased coordination with [id number], left upper extremity more than right. He is of slender build. His lower extremities, he is densely plegic. He does have definite increased tone, right lower extremity more than left lower extremity. He has sustained clonus on the right with several beats in the left. Both lower extremities are positioned in a knee extended posture and it takes a fair amount of time to gradually flexed the knees. Again, no volitional movement of either lower extremities. Sensation was decreased at bilateral large toes to proprioception. He was mod assist, sit to stand, supine to sit is max assist. He is able to stand for 10 seconds 3 times in physical therapy. ASSESSMENT: A 62-year-old white male with the following problem list: 1. Multiple sclerosis with lower extremity paraplegia. 2. Toxic metabolic encephalopathy. 3. Sepsis. 4. Acute sigmoid diverticulitis. 5. Acute cystitis. 6. Chronic pain syndrome with opiate dependence. 7. Multiple sclerosis with essentially failed medical management. 8. Hypertension. PLAN: Discussed with the patient's daughter and son as well as the patient. He is very motivated to return to his prior functional level to return back to the home setting. Family is very supportive. He is a good candidate for a short acute in-hospital inpatient rehabilitation stay when medically cleared. The patient and family are amenable. By: [id number] Aston Sharp MD /nt
[2018-09-18 04:28] VITALS: BP 126/61
[2018-09-18] MEDS ORDERED: NORCO 10-325 T1 EACH PO ×2 (04:58)
[2018-09-18] MEDS ORDERED: NEURONTIN 300300 M1 PO ×2 (05:00)
[2018-09-18] MEDS ORDERED: ZESTORETIC 20-1 EAC3 PO ×2 (05:01)
[2018-09-18 05:31] LABS: URINE BILIRUBIN NEGATIVE (Negative); URINE BLOOD 1+ (Negative); URINE CLARITY TURBID; URINE COLOR YELLOW; URINE GLUCOSE-RANDOM* NEGATIVE (Negative); URINE KETONES NEGATIVE (Negative); URINE PROTEIN (DIPSTICK) 1+ (Negative); URINE SPECIFIC GRAVITY >= 1.030 (1.005-1.035); URINE UROBILINOGEN 0.2 E.U./dl (0.2-1.0)
[2018-09-18 05:33] LABS: URINE LEUKOCYTES-REFLEX 2+ (Negative); URINE NITRITE-REFLEX POSITIVE (Negative)
[2018-09-18 05:34] LABS: ANION GAP 9 mmol/L (7-16); BUN 16 mg/dL (7-18); CALCIUM 8.6 mg/dL (8.5-10.1); CHLORIDE 102 mmol/L (98-107); CO2 26 mmol/L (21-32); CREATININE 0.7 mg/dL (0.7-1.3); GLUCOSE 97 mg/dL (74-106); POTASSIUM 3.7 mmol/L (3.5-5.1); SODIUM 137 mmol/L (136-145)
[2018-09-18 05:38] LABS: ABSOLUTE NEUTROPHILS 5.1 thou/uL (1.4-8.2); BASOPHILS 0.6 % (0.0-2.0); EOSINOPHILS 0.7 % (0.0-3.0); HEMATOCRIT 27.2 % (42.0-52.0); HEMOGLOBIN 9.1 gm/dL (14.0-18.0); LYMPHOCYTES 8.6 % (24.0-44.0); MCH 29.3 pg (26.0-34.0); MCHC 33.3 g/dL (28.0-37.0); MCV 88.1 fL (80.0-100.0); MONOCYTES 8.2 % (1.0-8.0); PLATELET COUNT 252 thou/uL (150-400); POLYS 81.9 % (36.0-66.0); RBC 3.09 mil/uL (4.50-6.00); RDW 14.5 % (10.5-14.5); WBC 6.2 thou/uL (4.0-11.0)
[2018-09-18 05:41] LABS: ALBUMIN 3.1 g/dL (3.4-5.0); DIRECT BILIRUBIN < 0.1 mg/dL (<0.1-0.3); LIPASE 77 U/L (73-393); SGOT 23 U/L (15-37); SGPT 21 U/L (30-65); TOTAL BILIRUBIN 0.4 mg/dL (<0.1-1.0); TOTAL PROTEIN 6.6 g/dL (6.4-8.2)
[2018-09-18 05:48] LABS: SQUAMOUS 0-3 Few /LPF (0-3)
[2018-09-18 05:49] LABS: BACTERIA-REFLEX 1-9 Few /HPF (None Seen); CASTS None Seen /LPF (None Seen); CRYSTALS None Seen /LPF (None Seen); MUCUS 0-3 Light strn/LPF (None Seen); URINE RBC >20 Many /HPF (0-2); URINE WBC-REFLEX >25 Many /HPF (0-5)
[2018-09-18 07:43] VITALS: BP 105/54
[2018-09-18 08:11] VITALS: BP 93/48
--- NOTE | 2018-09-18 12:04 | NUR ---
ASSESSMENT-PT LIVES AT HOME WITH HIS IN A HOUSE. DTR LIVES ACROSS THE STREET AND THEY HAVE A SON IN THE AREA. PT HAS BEEN WC BOUND FOR YEARS BUT HAD BEEN ABLE TO TRANSFER TO HIS . DTR BROUGHT OVER SLIDE BOARD AND WAS ABLE TO US THIS TO TRANSFER. NEIGHBORS HAVE A WC VAN THAT THEY CAN USE FOR TRANSPORTATION. THEY HAVE A RAMP TO ENTER HOME PT HAS M.S. AND HAS BEEN DECLINING OVER THE PAST YEAR. 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 PT HAS A SHOWER CHAIR WHICH IS NEW BUT HAS NOT BEEN STRONG ENOUGH TO USE IT. DOES THE COOKING, CLEANING AND LAUNDRY. DTR COMES OVER FREQUENTLY TO ASSIST. FOLLOWING TO ASSIST WITH DC PLANNING.
--- NOTE | 2018-09-18 16:10 | NUR ---
62 YO MALE ADMITTED BYCART FROM ED. IV INTACT IN R AC. CONDOM CATH ATTACHED WITH SMALL LEG BAG. C/O "AGONIZING RECTAL PAIN DUE TO CONSTIPATION" PT HAS M/S. IV FLUIDS AND ANTIBIOTICS STARTED, REPLACED LEG BAG WITH REG PATHAK BAG. ATTEMPTED TO REMOVE NO RESULT STOOL IS TOO HIGH. ORIENTED TO ROOM, CALL LIGHT AT BEDSIDE.
[2018-09-18 20:34] VITALS: BP 136/74
[2018-09-19] MEDS ORDERED: NABUMETONE 750750 M1 PO ×2 (00:51)
[2018-09-19 04:27] VITALS: BP 122/70
[2018-09-19 04:58] LABS: HEMOGLOBIN 8.1 gm/dL (14.0-18.0); MCH 29.5 pg (26.0-34.0); MCHC 33.9 g/dL (28.0-37.0); MCV 86.9 fL (80.0-100.0); RBC 2.76 mil/uL (4.50-6.00); RDW 14.2 % (10.5-14.5)
[2018-09-19 05:07] LABS: CALCIUM 8.1 mg/dL (8.5-10.1); CREATININE 0.5 mg/dL (0.7-1.3); MAGNESIUM 1.8 mg/dL (1.8-2.4); POTASSIUM 3.2 mmol/L (3.5-5.1)
--- NOTE | 2018-09-19 06:09 | NUR ---
A/O, compained of pain in abdomen and back, JUAN RAMON Monterroso called, orders given and administrated. Patient then has been bed resting with eyes closed. Stage 2 pressure ulcer was found by the staff during cleaning the patient, the [employer]OM[employer] PLANT TECHNICIAN Kriss was reported to. Patient refused to get the photo taken, claiming that he needed a rest and could have it done in the day time. Will pass this on to the day nurse. No n/v, no BM.
[2018-09-19 06:58] VITALS: BP 132/76
--- NOTE | 2018-09-19 15:10 | NUR ---
Following for d/c planning needs. Spoke with Dr Sharp and he said pt is a good rehab candidate. Will follow.
[2018-09-19 15:36] VITALS: BP 130/72
--- NOTE | 2018-09-19 16:01 | NUR ---
ASSESMENT COMPLETED. VSS. A/O. ANXIOUS. PAIN PARTIALLY RELIEVED BY MEDS ORDERED. NO NOTED SOA. NO NV. ENEMA GIVEN. DIGITALLY DISIMPACTED WITH LITTLE RESULT. MILK OF MAG GIVEN. PT RESTING IN BED AT THIS TIME. CONDOM CATH TO PATHAK BAG. WOUND TO SACRUM FOAM APPLIED- REPOSITIONED. LOW AIRLOSS PUMP ORDERED. WOUND CARE CONSULT. NO CONCERNS AT THIS TIME. WILL CONT. TO MONITOR.
[2018-09-19 19:42] VITALS: BP 125/66
--- NOTE | 2018-09-20 03:03 | NUR ---
ASSUMED PT CARE 1899. PT ALERT ADN ORIENTED. REASSESSMENT COMPLETE. VSS. IV DRESSING C/D/I. PT REPORTED 2 BMS. REPORTS PAIN, SEE EMAR. DENIES N/V. CALL LIGHT WITHIN REACH. WILL CONTINUE POC UNTIL EOS.
[2018-09-20 04:01] VITALS: BP 130/69
[2018-09-20 04:07] LABS: CALCIUM 8.2 mg/dL (8.5-10.1); CREATININE 0.5 mg/dL (0.7-1.3); MAGNESIUM 1.9 mg/dL (1.8-2.4); POTASSIUM 3.3 mmol/L (3.5-5.1)
[2018-09-20 04:48] LABS: HEMATOCRIT 24.8 % (42.0-52.0); HEMOGLOBIN 8.4 gm/dL (14.0-18.0); MCH 29.1 pg (26.0-34.0); MCHC 33.6 g/dL (28.0-37.0); MCV 86.5 fL (80.0-100.0); RBC 2.87 mil/uL (4.50-6.00); RDW 14.8 % (10.5-14.5); WBC 4.7 thou/uL (4.0-11.0)
--- NOTE | 2018-09-20 08:03 | NUR ---
ASSESMENT COMPLETED. VSS. A/O. PAIN MANAGED BY MEDS ORDERED. NO NOTED SOA. NO NV. PT RESTING IN BED A THIS TIME. [place] CATH TO PATHAK BAG INTACT. NO OTHER CONCERNS AT THIS TIME. WILL CONT. TO MONITOR.
[2018-09-20 08:22] VITALS: BP 114/64
[2018-09-20] MEDS ORDERED: ALPRAZOLAM 0.50.5 M1 PO ×2 (14:36)
[2018-09-20] MEDS ORDERED: CIPRO500 MG PO ×2 (14:36)
[2018-09-20] MEDS ORDERED: FLAGYL500 M1 PO ×2 (14:36)
[2018-09-20] MEDS ORDERED: PERCOCET 10-321 EACH PO ×2 (14:36)
[2018-09-20] MEDS ORDERED: LIDOPATCH1 EACH TRANSDERM ×2 (14:36)
[2018-09-20] MEDS ORDERED: ACETAMINOPHEN325 M1 PO ×2 (14:36)
[2018-09-20] MEDS ORDERED: K-DUR 20 MEQ T20 MEQ PO ×2 (14:36)
[2018-09-20] MEDS ORDERED: ENOXAPARIN40 MG/0.1 SUBQ ×2 (14:36)
[2018-09-20] MEDS ORDERED: MILK OF MA2400 MG/11 PO ×2 (14:36)
[2018-09-20] MEDS ORDERED: PEPCID20 MG PO ×2 (14:36)
[2018-09-20] MEDS ORDERED: COLACE 100 MG100 MG PO ×2 (14:36)
--- NOTE | 2018-09-20 15:00 | NUR ---
PT DCD TO 5N REHAB. ALL BELONINGS WITH PT. DTR REMAINED AT BEDSIDE. PT REFUSED PICTURE TO BE TAKEN OF HIS WOUND AT THE MOMENT DUE TO THE LIDOCAINE PATCH BEING IN PLACE. NOTIFIED VIOLETA SANCHEZ AND REPORT GIVEN.
== END 2018-09-20 17:20 | DRG 871 ==
LOC: ER 04:27 → EROBS 07:38 → 4E 07:38
PROVIDERS: Emergency Medicine; ADMIT Internal Medicine
DX: A41.9 Sepsis, unspecified organism (principal); G92 Toxic encephalopathy; E43 Unspecified severe protein-calorie malnutrition; K57.32 Diverticulitis of large intestine without perforation or abscess without bleeding; G82.20 Paraplegia, unspecified; N30.90 Cystitis, unspecified without hematuria; K59.00 Constipation, unspecified; I10 Essential (primary) hypertension; G35 Multiple sclerosis; G89.4 Chronic pain syndrome; E87.6 Hypokalemia; M54.9 Dorsalgia, unspecified; D63.8 Anemia in other chronic diseases classified elsewhere; Z79.891 Long term (current) use of opiate analgesic; Z68.23 Body mass index [BMI] 23.0-23.9, adult; Z79.899 Other long term (current) drug therapy
CPT/HCPCS: 10084

== ENCOUNTER 2018-09-20 14:05 | Inpatient (IN) | payer OTHER ==
[~2018-09-20] VITALS: Ht 188 cm; Wt 95.4 kg
--- NOTE | ~2018-09-20 | H ---
[facility] [place] [address] HISTORY AND PHYSICAL Name: ERICK WOODS Room #: 512-P [facility] IN M.R.#: [id number] Admission: 09/20/18 Attend Phys: Aston Sharp MD Discharge: 09/21/18 Date of : 53 Report #: [id number] THIS REPORT FOR: //name// CC: Aston Gallardo DATE OF SERVICE: 09/20/2018 HISTORY AND PHYSICAL/POST-ADMISSION PHYSICIAN EVALUATION HISTORY OF PRESENT ILLNESS: The patient is a 62-year-old white male with a history of multiple sclerosis x 10 years with lower extremity paraplegia premorbidly wheelchair bound, was able to transfer himself to stand pivot type transfer up until about 3 days ago. He has had problems with decreased appetite, nausea, vomiting, and abdominal pain. He was diagnosed with acute sigmoid diverticulitis with sepsis, acute cystitis as well as toxic metabolic encephalopathy. He had a significant decline in his functional independence. He has been using more of a sliding board type transfer and has needed increased assistance by family. As far as his acute diverticulitis and encephalopathy, he was managed with parenteral antibiotics, IV fluids, and supportive measures. There is consideration for palliative care with hospice, but after further discussion and his openness to try some therapy. He did reasonably well, working with therapist and we are now admitting him for an acute inpatient rehabilitation stay to try to further improve his functional mobility and transfers to try to achieve close to his premorbid functional level. He also was treated for urinary tract infection. PAST MEDICAL HISTORY: Includes the multiple sclerosis. He has been cared for by Dr. Rajesh Marroquin in Neurology. He tried to Copaxone for a couple of years and also described a more recent oral multiple sclerosis medication without efficacy. He has gone drug free over approximately the past 6-8 months with essentially failed medical management. He also has a history of chronic pain syndrome, opiate dependence and history of hypertension. He has had intermittent episodes of breakdown over his sacral area that has usually healed with barrier type creams. MEDICATIONS: Please see the full medication listing. SOCIAL HISTORY: Lives with his in a house, no steps. His is retired. There is a daughter that lives across the street as well as an involved son. There are neighbors that have a wheelchair van that he can utilize. He was sponge bathing himself in, premorbidly was able to dress his upper body well as, his assisted dressing his lower body, utilized a condom catheter. REVIEW OF SYSTEMS: As noted above. He did not have any complaints of chest pain or shortness of breath or abdominal discomfort. He noted he had eaten his [facility] [address] [place] [address] HISTORY AND PHYSICAL Name: ERICK WOODS YANETH Room #: 512-P DIS IN M.R.#: [id number] Admission: 09/20/18 Attend Phys: Aston Sharp MD Discharge: 09/21/18 Date of : 53 Report #: [id number] first meal earlier and felt that he has had a good appetite. PHYSICAL EXAMINATION: GENERAL: The patient was seen later yesterday. VITAL SIGNS: This morning temperature 36.9, pulse 75, respirations 18, blood pressure 136/76. He was alert, pleasant, oriented. HEAD, EYES, EARS, NOSE, AND THROAT: Appeared to be benign. He is of slender male. CHEST: Clear. CARDIOVASCULAR: Regular rate and rhythm. ABDOMEN: Bowel sounds positive, nontender. EXTREMITIES: He has a condom catheter in place. I did not roll him over on to this right side and he needed at least moderate assistance in rolling to the right in order to check his bottom. He does have some areas of superficial erythema. One was half dollar sized close to his left ischium. He is a thin male who has very little padding in his buttocks area. As far as examining his upper body, he has left upper extremity a little bit weaker than the right, probably grade 4-, right is a 4-, and is decreased coordination with [id number]-[id number]-vnqs, left upper extremity more than right. In his lower extremity is densely plegic. He has the increased tone with his legs staying extended and may take a fair amount of time to gradually try to flex his knees. He has sustained clonus of the right ankle in several beats on the left. No volitional movement of the lower extremity. Some decreased bilateral large toes and sensation to proprioception. As far as his cranial nerves appear to be intact. EOMs reveal some lateral nystagmus. Prior to coming to the rehab thapa he has been mod assist, sit to stand, supine to sit, has been max assist. ASSESSMENT: A 62-year-old white male with the following problems: 1. Multiple sclerosis with lower extremity paraplegia. 2. Toxic metabolic encephalopathy. 3. Sepsis. 4. Acute sigmoid diverticulitis. 5. Acute cystitis. 6. Chronic pain syndrome with opiate dependence. 7. Multiple sclerosis with essentially failed medical management. 8. Hypertension. 9. Significant risk for skin breakdown. PLAN: The patient has been admitted for acute in-hospital inpatient rehabilitation. From a postadmission physician evaluation perspective, there are no relevant changes since the preadmission screening. Please see the above review of the prior and current medical and functional conditions and comorbidities. Please see the patient's previous and current functional status. As far as risk of complications, he does have multiple medical comorbidities as the risks noted above and has his decreased function. The initial plan of care involves the interdisciplinary acute rehabilitation team with the goal of [facility] [address] [place] [address] HISTORY AND PHYSICAL Name: ERICK WOODS Room #: 512-P [facility] IN M.R.#: [id number] Admission: 09/20/18 Attend Phys: Aston Sharp MD Discharge: 09/21/18 Date of : 53 Report #: [id number] maximizing his functional independence. The toxic metabolic encephalopathy appears resolved at this time, but we will monitor. Functional goals would be for him to again become independent with basic transfers as far as mobility and ADLs as he was doing before, so he can return back home with family. Potential barriers would include his multiple medical comorbidities and decreased functional status. The patient meets diagnostic criteria for an acute in-hospital inpatient rehabilitation stay. He meets the medical necessity criteria and we will have the consumer services consultant physicians continue to follow. He does have the tolerance for therapies and has appropriate discharge goals back to the home setting. We will have the wound care nursing team involved regarding skin care prophylaxis and further prevention. He is going to be on a low air loss mattress with pump every 2 hour turns, close monitoring of skin as per orders. We can have the family bring in his wheelchair as well and will need to see what type of wheelchair cushion he has. By: [id number] Aston Sharp MD /SUDHA
--- NOTE | ~2018-09-20 | D ---
[facility] [place] [address] DISCHARGE SUMMARY Name: ERICK WOODS Room #: 512-P [facility] IN M.R.#: [id number] Admission: 09/20/18 Attend Phys: Aston Sharp MD Discharge: 09/21/18 Date of : 53 Report #: [id number] THIS REPORT FOR: //name// CC: Aston Gallardo DATE OF SERVICE: 09/21/2018 Please see the full admission history and physical post-admission physician evaluation. HOSPITAL COURSE: The patient was noted by Dr. Curry to have SVT. After admission to the rehab thapa with apparent atrial fibrillation with rapid ventricular rate. Cardiology was involved. Cardizem bolus started and the patient was transferred directly down to the CCU. DISCHARGE DIAGNOSES: 1. Multiple sclerosis with lower extremity paraplegia. 2. Atrial fibrillation with rapid ventricular rate. 3. Toxic metabolic encephalopathy. 4. Sepsis. 5. Acute sigmoid diverticulitis. 6. Acute cystitis. 7. Chronic pain syndrome with opiate dependence. 8. Multiple sclerosis with essentially failed medical management. 9. Adjustment disorder. 10. Hypertension. 11. Significant risk for skin breakdown. Discharge medications and activity were as per the accepting service. By: [id number] Aston Sharp MD /PMT
[~2018-09-20 14:05] MED LIST changes: +NABUMETONE 750750 M1 PO; +ZESTORETIC 20-1 EAC3 PO
[2018-09-20] MEDS ORDERED: ALPRAZOLAM 0.50.5 M1 PO ×2 (14:36)
[2018-09-20] MEDS ORDERED: K-DUR 20 MEQ T20 MEQ PO ×2 (14:36)
[2018-09-20] MEDS ORDERED: FLAGYL500 M1 PO ×2 (14:36)
[2018-09-20] MEDS ORDERED: COLACE 100 MG100 MG PO ×2 (14:36)
[2018-09-20] MEDS ORDERED: ACETAMINOPHEN325 M1 PO ×2 (14:36)
[2018-09-20] MEDS ORDERED: ENOXAPARIN40 MG/0.1 SUBQ ×2 (14:36)
[2018-09-20] MEDS ORDERED: MILK OF MA2400 MG/11 PO ×2 (14:36)
[2018-09-20] MEDS ORDERED: LIDOPATCH1 EACH TRANSDERM ×2 (14:36)
[2018-09-20] MEDS ORDERED: PERCOCET 10-321 EACH PO ×2 (14:36)
[2018-09-20] MEDS ORDERED: PEPCID20 MG PO ×2 (14:36)
[2018-09-20] MEDS ORDERED: CIPRO500 MG PO ×2 (14:36)
[2018-09-20 20:22] VITALS: BP 136/76
--- NOTE | 2018-09-20 21:30 | NUR ---
ASSUMED CARE OF PT AT 1745. REPORT RECEIVED FROM NURSE ON PREVIOUS UNIT. ADMISSION ASSESSMENT PERFORMED WITH DAUGHTER AT BEDSIDE. PT REPORTED SEVERE PAIN AND WAS GIVEN PO PAIN MEDICAITONS SOON POSSIBLE. ADMISSION EDUCATION COMPLETED AND CONSULTS CALLED. REPORT GIVEN TO NIGHT NURSE ABOUT PT CONCERNS ABOUT PAIN MANAGEMENT AND BOWEL PROGRAM. FALL PRECAUTIONS IN PLACE AND NURSING WILL CONTINUE TO MONITOR.
--- NOTE | 2018-09-21 03:03 | NUR ---
PT ASSESSMENT COMPLETED AND VSS. MEDS GIVEN ORDERED AND WELL TOLERATED. FALL PRECAUTIONS IN PLACE. PT UNABLE TO HAVE A BM ON HIS OWN AND NEEDS DIGIAL STIMULATION TO HAVE A BM. RECEIVED ORDER AND NOW PT HAD A BM. CREAM APPLIED TO WOUNDS ON BUTTOCK/COCCYX. PT REFUSED TO HAVE PICTURES TAKEN OF HIS BOTTOM BECAUSE HE IS TOO OVERWHELMED AND TIRED. CONSENTS SIGNED. SLEEPING WELL. WILL CONTINUE TO MONITOR FREQUENTLY.
[2018-09-21 04:59] LABS: CALCIUM 8.4 mg/dL (8.5-10.1); CREATININE 0.5 mg/dL (0.7-1.3)
[2018-09-21 05:08] LABS: HEMOGLOBIN 9.1 gm/dL (14.0-18.0); MCH 29.2 pg (26.0-34.0); MCHC 33.7 g/dL (28.0-37.0); MCV 86.6 fL (80.0-100.0); RBC 3.12 mil/uL (4.50-6.00); RDW 14.2 % (10.5-14.5); WBC 5.8 thou/uL (4.0-11.0)
[2018-09-21 07:15] VITALS: BP 132/79
[2018-09-21 09:07] VITALS: BP 103/59
--- NOTE | 2018-09-21 09:18 | NUR ---
ASSUME PT CARE AT 0700. VSS ON RA. C/O SEVERE PAIN THIS AM. NIGHT NURSE CALLED AND RECEIVED MORPHIN IV 4MG- ONLY GAVE 2MG PER PT'S REQUESTED. PT HAD OT AND TOLERATED WELL. ADMISSION TAKEN. PAIN TOLERATEABLE NOW. RATES 5/10. PT HAD SPEECH WORKED WITH HIM. C/O LIGHT HEADACHE AND PALPATATION. HAS IRREGULAR HR. HR WENT UP TO 176 AND DOWN TO 88. PT SAID HE DOESN'T FEEL WELL AND ANXIOUS TO SEE IF HE NEEDS TO GO DOWN TO ACUTE FLOOR. RAPID RESPONSE CALLED. EKG DONE. WITH AFIB WITH SVT. DR. BRISCOE CALLED AND HE WILL COME TO SEE PT SOON. B/P RECHECK. SEE [employer]. WILL CONTINUE TO MONITOR.
--- NOTE | 2018-09-21 09:49 | NUR ---
FOOTBALL PAD REPAIRER CALLED AT 0900 R/T PALPITATIONS. SEE RR FLOWSHEET FOR DETAILS
[2018-09-21 10:19] VITALS: BP 135/121
--- NOTE | 2018-09-21 11:03 | EKG ---
[address] [address] ELECTROCARDIOGRAM REPORT Name: ERICK WOODS Room #: 512-P DIS IN M.R.#: [id number] Admission: 09/20/18 Attend Phys: Aston Sharp MD Discharge: 09/21/18 Date of : 53 Report #: [id number] THIS REPORT FOR: //name// [facility] Test Date: 2018-09-21 Test Time: 09:09:34 Pat Name: ERICK WOODS Department: Room: 512 P Gender: M Bread Panner: Paul PRASAD : 1955 Requested By: Isaac Curry Order Number: [id number] MD: Madan Rodriguez Measurements Intervals [place] Rate: 195 P: 0 OK: QRS: 48 QRSD: 78 T: 228 QT: 241 QTc: 434 Interpretive Statements Atrial fibrillation with a rapid ventricular rate Repolarization abnormality, prob rate related Compared to ECG 09/02/2017 16:27:50 Early repolarization now present Sinus rhythm no longer present Electronically Signed On 09-21-2018 11:02:52 CDT by Madan Rodriguez [email or web address] <ELECTRONICALLY SIGNED> By: Madan Rodriguez MD 09/21/18 1102 8 Madan Rodriguez MD /RONN
== END 2018-09-21 10:25 | disposition short-term general hospital (02) | DRG 58 ==
PROVIDERS: ADMIT Physical Medicine & Rehabilitation
DX: G35 Multiple sclerosis (principal); G92 Toxic encephalopathy; A41.9 Sepsis, unspecified organism; K57.32 Diverticulitis of large intestine without perforation or abscess without bleeding; N30.00 Acute cystitis without hematuria; F11.20 Opioid dependence, uncomplicated; G89.4 Chronic pain syndrome; I10 Essential (primary) hypertension; I48.91 Unspecified atrial fibrillation; D63.8 Anemia in other chronic diseases classified elsewhere; Z99.3 Dependence on wheelchair; G82.20 Paraplegia, unspecified
CPT/HCPCS: 10112

== ENCOUNTER 2018-09-21 10:25 | Inpatient (IN) | payer OTHER ==
[2018-09-21] VITALS (10 sets, daily range): BP systolic 94–143; BP diastolic 57–86
[~2018-09-21] VITALS: Ht 185.4 cm; Wt 84.1 kg
[~2018-09-21 10:25] MED LIST changes: +ACETAMINOPHEN325 M1 PO; +ALPRAZOLAM 0.50.5 M1 PO; +CIPRO500 MG PO; +COLACE 100 MG100 MG PO; +ENOXAPARIN40 MG/0.1 SUBQ; +FLAGYL500 M1 PO; +K-DUR 20 MEQ T20 MEQ PO; +LIDOPATCH1 EACH TRANSDERM; +MILK OF MA2400 MG/11 PO; +PEPCID20 MG PO; +PERCOCET 10-321 EACH PO
--- NOTE | 2018-09-21 17:12 | NUR ---
TO UNIT FROM ICU BY BED. HR 140'S. DIGOXIN ADMIN ORDERED. CARDIZEM DRIP STARTED ORDERED. HR 95-105 NOW. RA SAT 98%. DENIES CP AND SOA. FAMILY ARRIVES AT BEDSIDE. WILL CONTINUE TO MONITOR.
[2018-09-22 00:30] VITALS: BP 121/63
--- NOTE | 2018-09-22 02:53 | NUR ---
ASSESSMENT DOCUMENTED.PT BEEN RESTING IN NO ACUTE DISTRESS.VSS.PAIN MEDS GIVEN PER ORDERS FOR LOWER BACK PAIN.CARDIZEM TITRATED PER PROTOCOL,PT CONVERTED TO SINUS RHYTHM.CARDIZEM OFF D/T PT HR DROP TO 60S.DENIES CHEST PAIN OR SOA.ZO BRADLEY.NS INFUSING .ON MONITOR SINUS RHYTHM.DENIES ANY OTHER NEEDS.POC IS TO DISCHARGE TO SNF IF WHEN STABLE.
[2018-09-22 04:05] VITALS: BP 106/59
[2018-09-22 05:10] LABS: HEMATOCRIT 26.2 % (42.0-52.0); HEMOGLOBIN 8.9 gm/dL (14.0-18.0); MCH 29.5 pg (26.0-34.0); MCHC 33.9 g/dL (28.0-37.0); MCV 86.8 fL (80.0-100.0); RBC 3.02 mil/uL (4.50-6.00); RDW 14.4 % (10.5-14.5); WBC 6.8 thou/uL (4.0-11.0)
[2018-09-22 05:12] LABS: ALBUMIN 2.6 g/dL (3.4-5.0); CREATININE 0.5 mg/dL (0.7-1.3); POTASSIUM 4.2 mmol/L (3.5-5.1); TOTAL BILIRUBIN 0.4 mg/dL (<0.1-1.0); TOTAL PROTEIN 5.4 g/dL (6.4-8.2)
--- NOTE | 2018-09-22 08:09 | HC ---
[facility] [place] [address] CONSULTATION Name: ERICK WOODS Room #: 205-P ADM IN M.R.#: [id number] Admission: 09/21/18 Attend Phys: Isaac Curry MD Discharge: Date of : 53 Report #: [id number] THIS REPORT FOR: //name// CC: Brad Curry DATE OF SERVICE: 09/21/2018 INDICATION: Atrial fibrillation. HISTORY OF PRESENT ILLNESS: This is a 62-year-old gentleman with a history of multiple sclerosis, chronic pain syndrome, hypertension, neurogenic bladder, who was recently admitted with diverticulitis. He presented with abdominal pain, found to have diverticulitis. His symptoms improved and he was transferred to inpatient rehabilitation on the fifth floor. This morning, he developed nausea, lightheaded, dizziness and palpitations. An ECG revealed atrial fibrillation with a rapid ventricular rate. He denies any chest pain or shortness of breath. He reports decreased p.o. intake for the past several days. There is no history of fever, cough or orthopnea. PAST MEDICAL HISTORY: Progressive multiple sclerosis, unable to use his lower extremities, history of chronic pain syndrome, hypertension, neurogenic bladder, spasticity. ALLERGIES: None. MEDICATIONS: Morphine, lisinopril, hydrochlorothiazide, amlodipine, aspirin, Neurontin. SOCIAL HISTORY: Denies tobacco use. FAMILY HISTORY: Negative for premature CAD. REVIEW OF SYSTEMS: A full 10-point review of systems performed. Only the pertinent positives and negatives are described in the HPI. PHYSICAL EXAMINATION: VITAL SIGNS: Blood pressure is 110/60, heart rate is 180 beats per minute. GENERAL APPEARANCE: This is a thin male in no acute distress. HEENT: Normocephalic, atraumatic. Oral mucosa dry. NECK: Supple. LUNGS: Clear to auscultation. CARDIAC: Tachycardic. S1, S2 positive. ABDOMEN: Soft, nontender. EXTREMITIES: No cyanosis. Trace edema. [facility] [address] [place] [address] CONSULTATION Name: ERICK WOODS YANETH Room #: [facility] ADM IN M.R.#: [id number] Admission: 09/21/18 Attend Phys: Isaac Curry MD Discharge: Date of : 53 Report #: [id number] DIAGNOSTIC DATA: ECG reveals atrial fibrillation with a rapid ventricular rate. ASSESSMENT AND PLAN: 1. Atrial fibrillation with a rapid ventricular rate, the etiology is unclear. We will check a TSH level, check troponin level. Started on IV Cardizem, heart rate is still elevated. We will add digoxin to his medical regimen. We will ultimately need an echocardiogram. We will start anticoagulation therapy. 2. Hypertension. Blood pressure on the low side, has had diminished oral intake for the last several days. Hold medications. 3. Multiple sclerosis/progressive, continue with medications. 4. Chronic pain syndrome, continue with medications. <ELECTRONICALLY SIGNED> By: Madan Rodriguez MD 09/22/18 0809 1120 1411 Madan Rodriguez MD /golden
[2018-09-22 08:35] VITALS: BP 132/63
--- NOTE | 2018-09-22 11:48 | EKG ---
[address] [address] ELECTROCARDIOGRAM REPORT Name: ERICK WOODS Room #: 205-P ADM IN M.R.#: [id number] Admission: 09/21/18 Attend Phys: Isaac Curry MD Discharge: Date of : 53 Report #: [id number] THIS REPORT FOR: //name// [facility] Test Date: 2018-09-22 Test Time: 07:09:30 Pat Name: ERICK WOODS Department: Room: 205 P Gender: M Civil Geotechnical Engineer: jlcass : 1955 Requested By: Isaac Curry Order Number: [id number] MD: Madan Rodriguez Measurements Intervals [place] Rate: 60 P: 65 [place]: 166 QRS: 48 QRSD: 91 T: 7 QT: 405 QTc: 405 Interpretive Statements Sinus rhythm Compared to ECG 09/21/2018 09:09:34 Atrial fibrillation no longer present Early repolarization no longer present Electronically Signed On 09-22-2018 11:48:20 CDT by Madan Rodriguez [email or web address] <ELECTRONICALLY SIGNED> By: Madan Rodriguez MD 09/22/18 1148 0709 8 MD RENETTA Olson
[2018-09-22 12:06] VITALS: BP 141/75
[2018-09-22 16:33] VITALS: BP 139/72
--- NOTE | 2018-09-22 17:00 | NUR ---
ASSESSMENTS CHARTED - PT THIS AM REFUSED TO TAKE SOME OF HIS MEDICATION - STATING HE DID NOT WNAT THEM - TOOK HIS PAIN MEDICATION AND A CHOICE OTHER FEW MEDS - I ASKED PATIENT IF HE WAS SURE HE DID NOT WANT THE MEDS AND HE STATED YES I THEN INFORMED HIM I WOULD BE THROWING THEM AWAY AT WHICH HE APPEARED UPSET ABOUT INFORMED HIM THEY COULD NOT BE KEPT THAT IT WAS REQUIRED THEY WERE DISPOSED OF. PT INSISTING TO GET OUT OF BED TO THE [facility] STATING HE NEEDED TO HAVE A BM - ATTEMPTED TO LET PATIEN KNOW THAT WE WERE NOT ABLE TO GET ANAID OUT OF BED THERE WAS NO MEN ON STAFF OR PHYS THERAPY HERE TO ASSIST IN LIFTING HIM TO THE [facility] - HE STATED THAT WE DID NOT NEED MEN FOR THIS - I INFORMED HIM THAT IT HAD BEEN REPORTED THAT IT TOOK 2 MEN TO GET HIM UP YESTERDAY AND THEY HAD A DIFFICULT TIME WITH GETTING TO THE [facility] AND BACK - PATIENT WAS NOT HAPPY WITH THIS - HE HAS BEEN ASKING CONSITIENTLY TO GET TO THE [facility] WITH THE SMAE ANSWER BEING GIVEN TO HOME EACH TIME. PT STATING THAT HE NEEDS TO BE UPRIGHT- PLACED BED IN CHAIR POSITION AND PATIENT NOT ABLE TO SIT UP STRIGHT - PT STAING THAT HE STIMULATES SELF TO HAVE A BM - ATTMEPTED STIMULATION AND PATIENT STATED THAT HE NEED TO BE -MANUALLY EVACUATED - ATTEMPTED THIS WITH LITTLE RESULT MIN STOOL PRESENT - OFFERED PATIENT MOM KIM HE REFUSED - OFFERED BED EVANS WHICH HE REFUSED - PATIENT TELLING COMPUTER ANIMATOR THAT HE DOES NOT KNOW WHEN HE NEED TO HAVE A BOWEL MOVEMENT. SON IN LAW INTO VISIT THIS AND STATED THAT HE KNEW PATIENT COULD BE VERY DIFFICULT - PATIENT VOLUNTEERED SON IN LAW TO SIT HIM UP ON THE SIDE OF THE BED WHICH I INFORMED THE PATIENT COULD NOT HAPPEN. SON MT HAD NO IDEA THAT HE HAD SAID THIS AND STATED THAT HE IS DIFFICULT TO MOVE AND WHEN HE TRIES TO DO THIS AT HOME IT IS VERY UNSAFE. PATIENT REFUSING TO EAT STATING THAT IF HE CAN NOT GET ANYTHING OUT THEN NOTHING GOES IN. DID NOT EAT LUNCH OF BREAKFAST. PT WANTING A - WARM WATER FLUSH- TO RECTUM - I CALLED DR BRISCOE AND HE STATED NO TO THIS REQUEST. PATIENT HAS BEEN OBSESSING OVER HAVING A BOWEL MOVT ALL SHIFT. PATIENT GIVEN PERCOCET FOR PAIN AND WAS ABLE TO GIVEN XANEX THIS AFTERNOON AFTER HE REFUSED TO TAKE IT THIS AM. DR ORDERED CELEBREX FOR PATIENT - HE REFUSED TO TAKE THIS STATING HE IS NOT DEPRESSED. IN THIS AFTERNOON AND APOLOGIZED FOR HIS BEHAVIOUR AND STATED THAT HE IS DIFFICULT AT HOME. DID DO SOME LEG EXERCISES WITH PATIENT WHICH HE STATED WAS HELPFUL. LIDOCAINE PATCH REMOVED FROM COCCYX - PATIENT COMPLETING ABOUT PAIN IN THE AREA - PLACED MEPILEX TO BROKEN DOWN AREA. OFFER TO TURN PATIENT - HE REFUSES STATING HE CAN DO IT HIMSELF. PT AGRUMENTATIVE ABOUT ALL CARE GIVEN AND ATTEMPTED TO BE GIVEN TO HIM TO HIM THIS SHIFT.
[2018-09-22 20:17] VITALS: BP 135/78
--- NOTE | 2018-09-23 03:09 | NUR ---
pt resting on and off thru the noc, prn and scheduled pain given for c/o back and leg pain, pt states he is able to turn himself in bed, hje replaced his own external catheter, iv fluids infusing, pt has remained pleasant and cooperative thru this shift will con't to monitor per ppoc.
[2018-09-23 05:19] VITALS: BP 144/80
[2018-09-23 08:00] VITALS: BP 140/77
--- NOTE | 2018-09-23 09:45 | 2DMMODE ---
[facility] [address] [place] [address] 2 D/M-MODE ECHOCARDIOGRAM Name: ERICK WOODS Room #: 205-P ADM IN M.R.#: [id number] Admission: 09/21/18 Attend Phys: Isaac Curry MD Discharge: Date of : 53 Date of Service: 09/23/18 0944 Report #: [id number] THIS REPORT FOR: //name// APPROVED REPORT Study performed: 09/23/2018 08:52:20 EXAM: Comprehensive 2D, Doppler, and color-flow Echocardiogram Patient Location: Bedside Room #: 205 Status: routine BSA: 2.08 HR: 80 bpm BP: 144/80 mmHg Rhythm: NSR Other Information Study Quality: Adequate Indications Atrial Fibrillation Hypertension/HDD 2D Dimensions RVDd: 40.41 mm IVSd: 7.78 (7-11mm) LVOT Diam: 20.79 (18-24mm) LVDd: 49.92 mm PWd: 7.82 (7-11mm) Ascending Ao: 35.33 (22-36mm) LVDs: 33.93 (25-40mm) Aortic Root: 34.39 mm Volumes Left Atrial Volume (Systole) Single Plane 4CH: 22.61 mL Single Plane 2CH: 24.38 mL LA ESV Index: 15.00 mL/m2 Aortic Valve AoV Peak Brent.: 1.18 m/s AO Peak Gr.: 5.56 mmHg LVOT Max P.05 mmHg LVOT Max V: 0.87 m/s ERICK Vmax: 2.51 cm2 Mitral Valve E/A Ratio: 1.1 MV Decel. Time: 223.17 ms [facility] [address] [place] [address] 2 D/M-MODE ECHOCARDIOGRAM Name: ERICK WOODS Room #: [facility] IN [facility].#: [id number] Admission: 09/21/18 Attend Phys: Isaac Curry MD Discharge: Date of : 53 Date of Service: 09/23/18 0944 Report #: [id number] MV E Max Brent.: 0.59 m/s MV A Brent.: 0.54 m/s MV PHT: 64.72 ms IVRT: 96.89 ms Pulmonary Valve PV Peak Brent.: 1.09 m/s PV Peak Gr.: 4.84 mmHg Pulmonary Vein P Vein S: 0.45 m/s P Vein A: 0.26 m/s P Vein D: 0.35 m/s P Vein A Dur.: 120.0 msec P Vein S/D Ratio: 1.29 Tricuspid Valve TR Peak Brent.: 2.51 m/s TR Peak Gr.: 25.28 mmHg PA Pressure: 25.00 mmHg Left Ventricle The left ventricle is normal size. There is normal LV segmental wall motion. There is normal left ventricular wall thickness. The left ventricular systolic function is normal. The left ventricular ejection fraction is within the normal range. LVEF is 60-65%. Moderate diastolic dysfunction Right Ventricle The right ventricle is normal size. The right ventricular systolic function is normal. Atria The left atrium size is normal. The right atrium size is normal. Aortic Valve The aortic valve is possibly bicuspid. No aortic regurgitation is present. There is no aortic valvular stenosis. Mitral Valve The mitral valve is normal in structure. Trace mitral regurgitation. No evidence of mitral valve stenosis. Tricuspid Valve The tricuspid valve is normal in structure. There is trace tricuspid regurgitation. Estimated pulmononary artery pressure of 30mmHg There is no pulmonary hypertension. [facility] [address] [place] [address] 2 D/M-MODE ECHOCARDIOGRAM Name: ERICK WOODS [employer] Room #: 205-P ADM IN M.R.#: [id number] Admission: 09/21/18 Attend Phys: Isaac Curry MD Discharge: Date of : 53 Date of Service: 09/23/18 0944 Report #: [id number] Pulmonic Valve The pulmonary valve is normal in structure. There is no pulmonic valvular regurgitation. Great Vessels The aortic root is normal in size. IVC is not well visualized. Pericardium There is no pericardial effusion.. <Conclusion> The left ventricular systolic function is normal. There is normal LV segmental wall motion. LVEF is 60-65%. Moderate diastolic dysfunction The aortic valve is possibly bicuspid. No aortic regurgitation or stenosis. The mitral valve is normal in structure. Trace mitral regurgitation. There is trace tricuspid regurgitation. Estimated pulmononary artery pressure of 30mmHg There is no pericardial effusion.. <ELECTRONICALLY SIGNED> By: Dimas Ruth MD, FACC 09/23/1844 3 3 Dimas Ruth MD, FACC /INF
[2018-09-23] MEDS ORDERED: NEURONTIN 400400 M1 PO (12:43)
[2018-09-23] MEDS ORDERED: CELEXA 20 MG TA20 MG PO (12:43)
[2018-09-23] MEDS ORDERED: ALPRAZOLAM 0.50.5 M1 PO (12:43)
[2018-09-23] MEDS ORDERED: METOPROLOL SUCC50 MG PO (12:43)
--- NOTE | 2018-09-23 13:12 | NUR ---
REPORT CALL TO ERIN SANCHEZ ON REHAB. WILL TRANSPOT TO REHAB.
--- NOTE | 2018-09-23 13:35 | NUR ---
WOUND CONSULT; TWO SACRAL WOUNDS WERE IDENTIFIED. NO S/S OF INFECTION. SMALL TO MODERATE SEROSANGINOUS DRAINAGE NOTED. THE PATIENT CAN TURN HIMSELF. RECOMMENDATIONS; ZGUARD TO WOUNDBED, COVER WITH A SACRAL FOAM DRESSING CHANGE M/W/F PRN DISCUSSED WITH LAURA
--- NOTE | 2018-09-24 08:06 | EKG ---
[address] [address] ELECTROCARDIOGRAM REPORT Name: ERICK WOODS Room #: 205- DIS IN M.R.#: [id number] Admission: 09/21/18 Attend Phys: Isaac Curry MD Discharge: 09/23/18 Date of : 53 Report #: [id number] REPORT FOR: //name// [facility] Test Date: 2018-09-22 Test Time: 07:19:30 Pat Name: ERICK WOODS Department: Room: 205 P Gender: M Piecer Up: jlambertz : 1955 Requested By: Isaac Curry Order Number: [id number] MD: Dimas Ruth Measurements Intervals Witt Rate: 57 P: 50 CA: 152 QRS: 9 QRSD: 93 T: 99 QT: 477 QTc: 465 Interpretive Statements Sinus bradycardia Abnormal R-wave progression, early transition Anterior T wave abnormality Compared to ECG 09/22/2018 07:09:30 T-wave abnormality is new Electronically Signed On 09-24-2018 8:05:50 CDT by Dimas Ruth [email or web address] <ELECTRONICALLY SIGNED> By: Dimas Ruth MD, [facility] 09/24/1805 8 8 Dimas Ruth MD, [facility] /EPI
== END 2018-09-23 14:03 | DRG 308 ==
LOC: 2N 10:25 → ICU 10:25 → 2N 15:52 → ENTRNSPT 09-23 13:31 → EDTRNSPTSTS 09-23 13:38 → 2N 09-23 14:03
PROVIDERS: Internal Medicine Cardiovascular Disease; ADMIT Internal Medicine
DX: I48.91 Unspecified atrial fibrillation (principal); G92 Toxic encephalopathy; F11.20 Opioid dependence, uncomplicated; G82.20 Paraplegia, unspecified; K57.32 Diverticulitis of large intestine without perforation or abscess without bleeding; G35 Multiple sclerosis; I10 Essential (primary) hypertension; L89.322 Pressure ulcer of left buttock, stage 2; L89.312 Pressure ulcer of right buttock, stage 2; G89.4 Chronic pain syndrome; F32.9 Major depressive disorder, single episode, unspecified; F42.9 Obsessive-compulsive disorder, unspecified; D63.8 Anemia in other chronic diseases classified elsewhere; F41.9 Anxiety disorder, unspecified; Z79.82 Long term (current) use of aspirin; Z79.899 Other long term (current) drug therapy
CPT/HCPCS: 10081

== ENCOUNTER 2018-09-23 12:41 | Inpatient (IN) | payer OTHER ==
[~2018-09-23] VITALS: Ht 33 cm; Wt 77.1 kg
--- NOTE | ~2018-09-23 | H ---
[facility] [place] [address] HISTORY AND PHYSICAL Name: ERICK WOODS Room #: 512-P ADM IN M.R.#: [id number] Admission: 09/23/18 Attend Phys: Aston Sharp MD Discharge: Date of : 53 Report #: [id number] THIS REPORT FOR: //name// CC: Aston Gallardo DATE OF SERVICE: 09/23/2018 HISTORY OF PRESENT ILLNESS: This is a 62-year-old male who was admitted to [facility] on 09/19/2018 with nausea, vomiting, abdominal pain, diagnosed with acute diverticulitis and encephalopathy. He was given appropriate medications. He initially was admitted to the rehab unit. The following day, he was found to go to be in atrial fibrillation with a heart rate up into the 170s. He was transferred back to acute care for Cardiology consultation and appropriate medications. He converted to sinus rhythm with a nice rate control and has now been readmitted back to the inpatient rehabilitation unit for further therapies. This patient has a history of multiple sclerosis for 10 years with bilateral lower extremity paraplegia. He has a premorbid wheelchair bound status. Today, the patient reports adequate pain control. He denies headache or dizziness. He denies cough, shortness of air, chest pain. He has no acute abdominal pain or nausea. He is tolerating his diet. He is having regular bowel movements. He does disimpact himself several times a day. He does report pain to his skin breakdown on the buttocks. He utilizes a condom catheter for urination. PAST MEDICAL HISTORY: Chronic pain syndrome, hypertension, opiate dependence, AFib, neurogenic bladder, spasticity, chronic constipation. SOCIAL HISTORY: He lives in a house with his . There are no steps. His is retired. He has a daughter that lives nearby and closely involved son. He has two wheelchairs at home. He has one that is a tilt and space and a smaller wheelchair that can fit into the bathroom. He has a bariatric commode. He was able to sponge bathe himself for the upper body premorbidly along with dressing his upper body independently. His assist with lower body dressing. His provides the IADLs, the patient was able to transfer himself premorbidly and was able to provide toileting independently. ALLERGIES: No known drug allergies. MEDICATIONS: Metoprolol 50 mg daily, lidocaine patch daily, Flagyl 500 mg t.i.d. x 15 doses, melatonin 5 mg at bedtime, gabapentin 800 mg t.i.d., potassium 20 mEq twice a day, nabumetone 500 mg twice a day, morphine 15 mg twice a day, Pepcid 20 mg twice a day, Colace 100 mg twice a day, Cipro 500 mg twice a day x 10 doses, Eliquis 5 mg twice a day, Percocet one tablet q. 6 hours as needed, Xanax 0.5 mg t.i.d., milk of mag p.r.n., Tylenol 650 q.4 hours [address]. [address] [address] HISTORY AND PHYSICAL Name: ERICK WOODS Room #: 512-P [facility] IN M.R.#: [id number] Admission: 09/23/18 Attend Phys: Aston Sharp MD Discharge: Date of : 53 Report #: [id number] CODE STATUS: Full code. REVIEW OF SYSTEMS: Remainder of his 14-point review of systems is negative except as listed in HPI. PHYSICAL EXAMINATION: VITAL SIGNS: 117/68, respirations 20, pulse of 83, temperature 37.1, O2 sat 99% on room air. GENERAL: He is awake. He is alert. He is oriented x 4. He is in no acute distress. HEENT: Head is normocephalic. Eyes: EOMs are intact. No icterus. ENT: No sinus tenderness, no pharyngitis. NECK: No lymphadenopathy. HEART: He is in a regular rate and rhythm, S1, S2. CHEST: Lungs are diminished. No crackles, no wheeze. ABDOMEN: Bowel sounds are positive. He is soft, he is nontender. He is nondistended. GENITOURINARY: No CVA tenderness. He does use a condom catheter. EXTREMITIES: Functional range of motion of the upper extremities, settlement technician were equal with no clonus. He has increased tone in the bilateral lower extremities, right is worse than the left. Bed mobility is max assist. Toileting is dependent. Sit to stand with contact guard assist, able to independently maneuver wheelchair around the room. NEUROLOGIC: He has [id number] cognitive deficits, scoring 22/30 on the MoCA. Mild to moderate memory deficits. SKIN: He has stage 2 three open areas on his sacral/buttocks. PSYCHIATRIC: He does have an anxious affect. LABORATORY DATA: 09/22/2018, WBC 6.8, hemoglobin 8.9, hematocrit 26.2, platelets 237. Sodium 139, potassium 4.2, BUN 5, creatinine 0.5, albumin 2.6. ASSESSMENT: 1. Advanced MS with bilateral lower extremity paraplegia. 2. Toxic metabolic encephalopathy, improving. 3. Atrial fibrillation with RVR, now converted to sinus rhythm. 4. Acute sigmoid diverticulitis with sepsis, resolving. 5. Chronic pain syndrome. 6. Stage 2 pressure ulcers to sacrum/buttocks. 7. Hypertension. 8. Chronic constipation. PLAN: The patient has been admitted to inpatient rehabilitation unit for physical, occupational and speech therapies. He will have multiple consultants including Cardiology, hospitalist and wound care. He is on a low air loss mattress. I discussed with the wound care nurse today we are changing his [facility] [address] [place] [address] HISTORY AND PHYSICAL Name: ERICK WOODS Room #: 512-P ADM IN [facility].#: [id number] Admission: 09/23/18 Attend Phys: Aston Shrap MD Discharge: Date of : 53 Report #: [id number] treatment to better please the patient and help with pain control. He will have a team conference today, please see extensive orders. By: [id number] KIRAN Rowley /golden
[2018-09-23] MEDS ORDERED: NEURONTIN 400400 M1 PO (12:43)
[2018-09-23] MEDS ORDERED: ALPRAZOLAM 0.50.5 M1 PO (12:43)
[2018-09-23] MEDS ORDERED: CELEXA 20 MG TA20 MG PO (12:43)
[2018-09-23] MEDS ORDERED: METOPROLOL SUCC50 MG PO (12:43)
[2018-09-23 14:13] VITALS: BP 110/71
--- NOTE | 2018-09-23 14:22 | NUR ---
patient to dc to 5n planned return no further needs.
--- NOTE | 2018-09-23 17:25 | NUR ---
PT READMITTED TO ROOM 512 AROUND 1500 . PATIENT IS ALERT AND ORIENTED X4. ABLE TO VOICE HIS NEEDS. REASSESSMENT PER CHART HEART SPECIALIST UPPER EXTREMETIES, PARAPLEGIA FROM HIPS TO TOES, HAS FOOT DROPS. LUNGS ARE CLEAR AND DIMINISHED. ABD IS SOFT WITH BSX4. REPORTS HAD LOOSE STOOL THIS AM. SACRAL DRESSING C/O LOWER BACK PAIN 10/10 ON ADMISSION. PRN OXYCODONE GIVEN. PAIN IS DOWN TO 5/10 NOW. IV ON RIGHT FOREARM S.L. HAS EXTERNAL CATHER INTACT. PT HAS BEEN IN BED AND TURN Q2HR WHILE IN BED. PT/OT/ST EVALS TO BE DONE IN A.M. REVIEWED ADMISSION MEDS WITH DR. BRISCOE, MITRA MCCOY SINCE PT HAS RECENT DX WITH AFIB. PT HAS HX OF DEPRESSION. DR. BLANTON CALLED AND IS TALKING WITH PT NOW. DISCUSSED WITH REHAB SCHEDULE. OFFERED SUPPORTIVE CARE AND EMOTIONAL SUPPORT. FALL PRECAUTION IN PLACE. CALL LIGHT WITHIN REACH. WILL CONTINUE TO MONITOR.
[2018-09-23 19:46] VITALS: BP 117/68
--- NOTE | 2018-09-23 23:59 | NUR ---
PT ASSESSMENT COMPLETED AND VSS. MEDS GIVEN ORDERED AND WELL TOLERATED. FALL PRECAUTIONS IN PLACE. RECTAL STIMULATION COMPLETED ORDERED. MODERATE AMOUNT OF BROWN FORMED BM. PROVIDED MUCH EMOTIONAL SUPPORT. TURNED FREQUENTLY. PICTURE TAKEN AND DSG APPLIED TO COCCYX WOUND. PRN PAIN MEDICATION HELPFUL FOR BACK AND MS PAIN. SLEEPING. WILL CONTINUE TO MONITOR FREQUENTLY.
--- NOTE | 2018-09-24 12:05 | NUR ---
chart review, cm met with pt, a & o x 3 with some forgetfulness, pleasant and able to make his needs know. he up in electric scooter. intro to dcp, " oh i want to go home soon, like my 5 days is sunday, dr conde said 5-7 days and i leaning towards 5 since i didn't really want to come up here anyway"/gwendolyn. " have ramps at home, live wit , have slide boards, bsc, electric scooter, have bz board. take sponge bath because cant get into shower, no shower bench or chair"/gwendolyn. education that insurance does not cover shower chair " i know it will be fine,"/pt. he reported have [facility] in past and would use them again"/ pt will cont following as needed for dc needs.
[2018-09-24 12:56] VITALS: BP 117/68
--- NOTE | 2018-09-24 13:11 | NUR ---
team meeting, recommendation: wound care cont monitor, slide board, anticipation of 20th with hh (pt, ot, st, nursing,), ok to have family bring recliner from home if can show that he can shift his wt for skin intergity, ok to use own electric scooter out of room on unite.
--- NOTE | 2018-09-24 16:28 | NUR ---
dp sent home health referral to [facility] ([place]) will call to make certain they received.
--- NOTE | 2018-09-24 17:42 | NUR ---
ASSUME PT CARE AT 0700. REPORTS SLEPT GOOD. PT ASSESSMENT COMPLETED AND VSS. RATES PAIN ON BACK TO TOES 10/10. PAIN MED AND SCHEDULE MEDS GIVEN ORDERED AND WELL TOLERATED. PT UP IN HIS OWN ELECTRICAL WC WORKED WITH THERAPIST. TRANSFER WITH SLIDE BOARD. RECTAL STIMULATION COMPLETED ORDERED, PT ABLE TO DO IT BYSELF STAFF WITH PT . MODERATE AMOUNT OF BROWN HARD FORMED BM PT REFUSED COLACE THIS AM. ENCOURAGED PT TO TAKE COLACE. PROVIDED MUCH EMOTIONAL SUPPORT. PT HAD BEEN UP TO DINNING ROOM FOR MEALS AND SOCIALIZE WITH OTHERS. OFFERED SUPPORTIVE CARE. ENCOURAGED PT TO VOICE HIS NEEDS. EDI CAME TO TALK WITH PT ABOUT MEDS. HAS GOOD FAMILY SUPPORT. QUESTIONS AND CONCERNS COMMUNICATE WITH STAFF. HAD TEAM MEETING TODAY. DISCHARGE PLAN WILL BE NEXT SUNDAY. WILL GIVE REPORT TO NIGHT NURSE TO CONTINUE TO MONITOR.
[2018-09-24 19:50] VITALS: BP 115/63
--- NOTE | 2018-09-25 02:54 | NUR ---
ASSUMED CARE OF PT FROM DAY SHIFT PT SITTING UP IN BED WITH LAPTOP, VOICED CONCERN OVER COLOR OF URINE, WHICH IS MILY ,CLEAR NO OROR NOTED. INFORMED PT THAT WILL MONITOR AND REPORT TO MD. DISCUSSED PLAN OF CARE AMD AGREEABLE, PT REQUESTING PAIN MEDIATION EVERY 4 HOURS. PT RESTING WELL THROUGHOUT HOURLY ROUNDINGS.
[2018-09-25 08:15] VITALS: BP 117/57
--- NOTE | 2018-09-25 09:21 | NUR ---
ASSUMED PATIENT CARE AT 0700 A.M. PATIENT CALLED FOR NURSE SHORTLY AFTER, ASKED NURSE QUESTIONS REGARDING HIS CARE, i.e., WHO AND HOW MANY STAFF WILL ASSIST HIM FOR TRANSFERS. AFTER REVIEW OF POC, REASSURED THAT NURSE AND OTHER HC TEAM WOULD ASSIST NEEDED. UP AT THIS TIME WITH O.T. AND INTERCHANGEABLY WITH NURSE AND NEEDLE STRAIGHTENER. ASSISTED TO TOILET BY OT AND NEEDLE STRAIGHTENER, NURSE ALSO ASSISTED. WILL TAKE HIS ORAL MEDICATIONS AFTER COMPLETING BM IN B.R.
[2018-09-25 19:30] VITALS: BP 116/67
--- NOTE | 2018-09-25 19:53 | NUR ---
PT UP IN POWER CHAIR ALL AFTERNOON, AND AT 1700, CLINICAL ASSESSMENT MANAGER NOTED THAT THERE WAS NO URINE IN HIS LEG BAG. THE BAG HAD BEEN PLACED DURING ADL'S IN THE MORNING, THUS THERE HAD BEEN NO URINARY OUTPUT FOR 8 HOURS. BLADDER SCAN >999. PER STANDING ORDERS FOR REHAB, I&O CATHED FOR 1050. EDUCATION PROVIDED TO PATIENT THROUGHOUT, AND HE VERBALIZED UNDERSTANDING. PT STATED THAT HIS ABDOMEN "FELT MUCH BETTER" FOLLOWING THIS. ITZ LYNN WAS NOTIFIED OF ABOVE, AND ORDERS RECIEVED TO GIVE FLOMAX TONIGHT, SCAN BLADDER IN 4-[address]AK CATHETER IF VOLUME IS >400 CC'S. PATIENT ALSO REFUSED THE FOAM DRESSING TO HIS SACRAL WOUNDS TODAY, STATING THAT THIS IS UNCOMFORTABLE, AND THAT HE WANTED IT TO BE OPEN TO AIR. PT CURRENTLY LYING ON LEFT SIDE IN BED, NO C/O PAIN. REPORT GIVEN TO ONCOMING NURSE.
--- NOTE | 2018-09-26 03:21 | NUR ---
ASSESSMENT: PT REMAIN ALERT AND ORIENT TIMES FOUR. ABLE TO MAKE RATIONAL DECISIONS R/T HIS CARE. PRN PAIN MEDICATIONS GIVEN FOR SACRAL AND LEG PAIN. PT REQUESTED TO TO BE ABLE TO GET SOME SLEEP. PT'S 0000 BLADDER SCAN REVEALED [address] PER ORDERS. PT HAS A RETENTION ISSUE THAT NEEDS TO BE ADDRESSED BY UROLOGY. PER Daylin LYNN EMBRYOLOGY TEACHER, PT MAY POSSIBLE NEED TO BE TRANSPORT TO A FACILITY THAT HAS A UROLOGIST ON STAFF. DE ALLOWED TO SLEEP POST BEING CATHERIZED. VSS, AFEBRILE. SLOW PROGRESS TOWARDS DC GOALS, .WILL CONTINUE TO MONITOR.
--- NOTE | 2018-09-26 11:21 | NUR ---
WOUND CARE FOLLOW UP; THE SACRAL WOUNDS ARE DRAMATICALLY BETTER TODAY. AT LEST 50% HEALING HAS BEEN ACHIEVED. NO S/S OF INFECTION. RECOMMEMDATIONS; CONTINUE CURRENT TREATMENT. DISCUSSED WITH LAURA
--- NOTE | 2018-09-26 19:09 | NUR ---
PATIENT ALERT AND ORIENTED AND PARTICIPATES IN SELF CARE AND POC. PATIENT ABLE TO TRANSFER TO [facility] WITH MOD ASSIST X 1. PATIENT REQUESTS GUIDANCE BUT WILL IN TURN DIRECT HIS CARE. PATIENT NEEDS CONSIDERABLE ENCOURAGEMENT.
[2018-09-26 20:15] VITALS: BP 119/73
--- NOTE | 2018-09-26 23:03 | NUR ---
PT ASSESSMENT COMPLETED AND VSS. MEDS GIVEN ORDERED AND WELL TOLERATED. FALL PRECAUTIONS IN PLACE. PRN PAIN AND ANXIETY MEDICATION HELPFUL. ASST WITH REPOSITION FOR COMFORT. CREAM APPLIED TO WOUNDS ON SACRUM. PATHAK DRAINING DARK YELLOW URINE. SLEEPING WELL. WILL CONTINUE TO MONITOR FREQUENTLY.
[2018-09-27 07:56] VITALS: BP 114/72
--- NOTE | 2018-09-27 15:20 | NUR ---
PT ALERT AND ORIENTED TIMES FOUR WITH BLUNTED AFFECT. VSS. C/O PAIN SCHEDULED AND PRN PAIN MEDICTIONS GIVEN WITH SOME RELEIF. PT UP IN THE WHEEL CHAIR FOR MOST OF THE DAY, AND WORKED WELL WITH PT/OT. PT TOLERATES MEDS BUT HAS VERY POOR APPETITE. PT FAMILT HERE TO VISIT TODAY. PT PROGRESSING TOWRADS POC GOALS.
--- NOTE | 2018-09-27 16:39 | NUR ---
cm returned requested phone call to daughter farzad rt dcp " needing some more help in mom for him, mom cant be lifting him all the time"/farzad. education hh and then additional pd care. senior blue book left for family to make arrangement for pd when pt dc home next week.
[2018-09-27 19:30] VITALS: BP 129/62
--- NOTE | 2018-09-28 02:58 | NUR ---
ASSUMED CARE FROM DAY SHIFT PT RESTING IN BED AT BEDSIDE , DISUCUSS PLAN OF CARE AND AGREEABLE, COMITNUE TO C/O PF COMSTANT PAIN , MEDICATION GIVEN PRESCRIBED. PAIN IS CHRONIC IIN NATURE. RESTING WELL THROUGHOUT HOURLY ROUNDS.
[2018-09-28 05:30] LABS: HEMOGLOBIN 8.8 gm/dL (14.0-18.0); MCHC 33.8 g/dL (28.0-37.0); MCV 85.9 fL (80.0-100.0); PLATELET COUNT 306 thou/uL (150-400); RBC 3.02 mil/uL (4.50-6.00); RDW 14.6 % (10.5-14.5); WBC 5.5 thou/uL (4.0-11.0)
[2018-09-28 05:43] LABS: CALCIUM 8.6 mg/dL (8.5-10.1); CREATININE 0.5 mg/dL (0.7-1.3); MAGNESIUM 1.8 mg/dL (1.8-2.4); POTASSIUM 3.9 mmol/L (3.5-5.1)
[2018-09-28 06:32] LABS: ABSOLUTE NEUTROPHILS 3.1 thou/uL (1.4-8.2); ANISOCYTOSIS 1+
[2018-09-28 08:43] VITALS: BP 139/74
--- NOTE | 2018-09-28 12:22 | NUR ---
ASSUMED CARES AT 0700. PT ALERT AND ORIENTED*4. C/O LOWER BACK AND BLE PAIN 10/10, PAIN MEDICATIONS ADMINISTERED Q4H. VITALS REMAIN STABLE. CONTINUES TO HAVE A SACRAL WOUND, SITE CLEANED AND LIDOCAINE CREAM PLUS BARRIER CREAM ADMINISTERED. PT REPOSITIONED Q2H. PT INCONTINENT OF BOWEL MULTIPLE TIMES. UP WITH 2 MAX SLIDING TO CHAIR/BED WITH THERAPY. PULSES ARE 2/2. PT INDECISIVE IN MAKING SIMPLE DECISIONS ie. getup/not for therapies, depend on/off etc.Q1H VISUAL CHECKS. CALL LIGHT WITHIN REACH. FALL PRECAUTIONS IN PLACE
[2018-09-28 20:00] VITALS: BP 120/56
--- NOTE | 2018-09-29 04:00 | NUR ---
ASSESSMENT; PT REMAIN ALERT AND ORIENT TIMES FOUR, FORGETFUL ON OCCASSIONS. PRN PAIN MEDICATION PROVIDING ADEQUATE RELIEF OF PAIN. SACRUM AREA LESS RED, LIDO OINTMENT APPLID PRN. IMMODIUM EFFECTIVE, ONLY ONE SMEAR THIS SHIFT. PATHAK PATENT WITH CLEAR, YELLOW URINE OUTPUT. VSS, AFEBRILE. REPOSITIONED EVERY TO HOURS, HOURLY ROUNDING PROVIDED, PT REMAINS SAFE WITH POC ADHERED TO. SLOW PROGRESS TOWARDS DC GOALS, WILL CONTINUE TO MONITOR.
[2018-09-29 07:30] VITALS: BP 114/62
--- NOTE | 2018-09-29 10:28 | NUR ---
ASSUMED CARE AT 0700. ALERT AND ORIENTED X4. PATIENT MOVES UPPER EXTREMITIES. LUNGS ARE CLEAR AND DEMINISHED. ABD IS SOFT WITH BSX4. UP IN BED FOR BREAKFAST. FALL AND SAFETY PROTOCOLS IN PLACE. C/O PAIN IN HIS RIGHT LEG AND BACK. MEDICATED WITH PRN PAIN MED. PATIENT CONTINUES TO PROGESS SLOWYLY TOWARDS D/C GOALS. PATIENT HAS PATHAK TO DEPENDENT DRAINAGE, DRAINING DARK BROWN URINE. ENCOURAGED PO FLUIDS. PATIENT IS TURNED Q 2 HOURS. WILL CONTINUE TO MONITER.
[2018-09-29 20:40] VITALS: BP 133/76
--- NOTE | 2018-09-30 00:23 | NUR ---
PT ASSESSMENT COMPLETED AND VSS. MEDS GIVEN ORDERED AND WELL TOLERATED. FALL PRECAUTIONS IN PLACE. IN WHEELCHAIR EARLY DURING SHIFT. 2 ASST TRANSFER TO BED. PATHAK DRIANING DARK YELLOW URINE. PRN PAIN AND ANXIETY MEDICATION WORKING WELL. TURNED ORDERED. LIDOCAINE CREAM APPLIED TO SACRAL AREA FOR COMFORT. SLEEPING WELL. WILL CONTINUE TO MONITOR FREQUENTY.
[2018-09-30] MEDS ORDERED: ELIQUIS5 MG PO (08:36)
[2018-09-30] MEDS ORDERED: COLACE 100 MG100 MG PO (08:36)
[2018-09-30] MEDS ORDERED: FLOMAX0.4 MG PO (08:36)
[2018-09-30] MEDS ORDERED: LOPERAMIDE 2 MG2 MG PO (08:36)
[2018-09-30] MEDS ORDERED: NEURONTIN 300300 M1 PO (08:36)
[2018-09-30 09:00] VITALS: BP 123/69
--- NOTE | 2018-09-30 09:27 | NUR ---
ASSUMED CARE AT 0700. REPORTS SLEPT GOOD LAST NIGHT. ALERT AND ORIENTED X4. PATIENT MOVES UPPER EXTREMITIES. EXCITING TO BE DISCHARGE TODAY. DR. DANIEL DISCUSSED ABOUT REMOVE INDWELLING PATHAK CATH THIS AM TO SEE IF PT CAN ABLE TO VOID AND CAN BE DISCHARGE TOMORROW. PT LITTLE UPSET BUT ABLE TO BE AGREE TO REMOVE INDWELLING THIS AM. INDWELLING CATH REMOVED AT 09AM, EXTERNAL CATH INSERTED BY PT HAS ABOUT 75CC CLEAR URINE IN LEG BAG NOW. OT ASSISTED WITH BATH AND PT ASSISTED PT TO BE UP TO WC NOW. LUNGS ARE CLEAR AND DIMINISHED. ABD IS SOFT WITH BSX4. FALL AND SAFETY PROTOCOLS IN PLACE. C/O PAIN IN HIS RIGHT LEG AND BACK. MORPHIN AND MORNING MEDS GIVEN SCHEDULE. PATIENT CONTINUES TO PROGESS SLOWYLY TOWARDS D/C GOALS. ENCOURAGED PO FLUIDS. WOUND CARE DONE ON BACK. ENCOURAGE PT TURNED Q 2 HOURS WHILE HE IS IN ELECTRICAL WC. PT IS IN GOOD SPIRIT. CONTINUE TO OFFER SUPPORT AND ENCOURAGEMENT. WILL CONTINUE TO MONITOR.
--- NOTE | 2018-09-30 11:56 | NUR ---
WOUND CARE FOLLOW UP; THE SACRAL WOUNDS HAVE HAD SIGNIFICATE HEALING; CURRENTLY USING ZGUARD. NO S/S OF INFECTION. RECOMMENDATION; CONTINUE CURRENT WOUND CARE ORDERS. RN PRESENT
--- NOTE | 2018-09-30 19:07 | NUR ---
PATIENT IS REQUESTING RECOMMENDATION FOR RESIDENTIAL DRIVER TO ASSIST WITH TOILETING, ADL'S AND TRANSFERS. LEFT MESSAGE ON VOICE MAIL. PATIENT PLANS TO DISCHARGE ON Sunday09/30/2018.
[2018-09-30 19:25] VITALS: BP 128/69
--- NOTE | 2018-09-30 23:02 | NUR ---
PT ASSESSMENT COMPLETED AND VSS. MEDS GIVEN ORDERED AND WELL TOLERATED. FALL PRECAUTIONS IN PLACE. PT UNABLE TO VOID. BLADDER SCAN RESULT 806. CONTACTED RANGE RIDER EDI. PER ORDERS PLACED A PATHAK CATH. EDI DID NOT RECOMMEND STRAIGHT CATH. PT WILL GO HOME WITH THIS PATHAK AND SEE UROLOGY AFTER D/C. PT IS PLEASED WITH THIS PLAN. PRN PAIN AND ANXIETY MEDICATION WORKING WELL. ASST WITH REPOSITION. SLEEPING. WILL CONTINUE TO MONITOR FREQUENTLY.
[2018-10-01 07:30] VITALS: BP 120/70
[2018-10-01] MEDS ORDERED: LOPERAMIDE 2 MG2 MG PO (09:07)
[2018-10-01] MEDS ORDERED: FLOMAX0.4 MG PO (09:07)
[2018-10-01] MEDS ORDERED: ELIQUIS5 MG PO (09:07)
--- NOTE | 2018-10-01 09:30 | NUR ---
daughter farzad called stated pd came from visit yesterday and quiet rt cant help him at home, needing more time what can we do, active listening and let her know would talk with team and call her back.
--- NOTE | 2018-10-01 15:57 | NUR ---
ASSUMED CARE AT 0700. ALERT AND ORIENTED X4. PT WAS EXCITING TO BE DISCHARGE TODAY. FAMILY IS NOT READY TO TAKE PT HOME SINCE THEY CAN NOT FIND A PRIVATE DUTY. OT ASSISTED WITH BATH AND PT ASSISTED PT TO BE UP TO WC AND PT WORKED WITH PT. LUNGS ARE CLEAR AND DIMINISHED. ABD IS SOFT WITH BSX4. FALL AND SAFETY PROTOCOLS IN PLACE. C/O PAIN IN HIS RIGHT LEG AND BACK. MORNING MEDS GIVEN SCHEDULE AND PRN PAIN MEDS GIVEN PER REQUEST. PATIENT CONTINUES TO PROGESS SLOWYLY TOWARDS D/C GOALS. ENCOURAGED PO FLUIDS. WOUND CARE DONE ON BACK. ENCOURAGE PT TURNED Q 2 HOURS WHILE HE IS IN ELECTRICAL WC. TEAM CONFERENE TODAY AND PT WILL LEAVE NEXT SUNDAY OR SUNDAY. CONTINUE TO OFFER SUPPORT AND ENCOURAGEMENT. FALL PRECAUTION IN PLACE. WILL CONTINUE TO MONITOR.
[2018-10-01 19:30] VITALS: BP 126/67
--- NOTE | 2018-10-02 00:21 | NUR ---
assumed care at approx 1900 evening 10/01. pt sleeping in bed at change of shift. pt awoken approx 0 to take hs meds. marques to dd with clear, yellow urine to bag. pt took several hs meds and pain meds at bedtime per request that he needed pain meds and something to help him sleep. pt irritable and somewhat confrontational. pt appears to be sleeping at present. bed alarm on and call light in reach. will continue to monitor.
[2018-10-02 08:00] VITALS: BP 111/69
--- NOTE | 2018-10-02 12:57 | NUR ---
ASSUMED CARE OF PT AT 0715. PT IS A&OX4 AND VITAL SIGNS ARE STABLE. REPORTS PAIN IN HIS BACK AND WAS TREATED WITH ORDERED PO MEDICATIONS WITH RELIEF REPORTED AT PATIENTS STATED TOLERANCE LEVEL OF LESS THAN 5. AT THIS TIME PT STATES THAT HE IS TIRED AND WISHES TO RETURN TO BED FOR REMAINDER OF THE DAY AND STATES THAT HE IS NOT GOING TO PARTICIPATE IN SCHEDULED THERAPIES, AND PLANS TO REFUSE THERAPIES MOVING FORWARD. PT DID NOT PARTICIPATE IN ALL THERAPIES TODAY ACCORDING TO ST AND PT. PT REPORTS THAT NO INFORMATION REGUARDING D/C PLANS HAS BEEN GIVEN TO HIS DISPITE THE REPORTS OF MULTIPLE INDIVIDUALS THAT STATE HE WAS GIVEN INFORMATION YESTERDAY. PT REPORTS THAT HE IS GOING TO BE RETURNING HOME AND HAS NO INTENTION OF GOING TO A FACILITY. Z-GUARD APPLIED TO [facility] NEEDED. PATHAK CATHETER IN PLACE AND DRAINING APPROPRIATELY, SECURED TO LEG. FALL PRECAUTIONS IN PLACE AND NURSING WILL CONTINUE TO MONITOR.
--- NOTE | 2018-10-02 14:46 | NUR ---
yvonne was notified that pt is refusing to sign vendor form cm left for him about hh, snf, senior blue book and pd list pt stated " she didn't give us resource"/pt. yvonne notified by bedside nurse and nurse paid search manager that pt has refused thearpy today. cm called nilsa information passed on about pt refusing rehab and he will need to participate if going to stay for family to look into private duty and information provided about place for mom where company can help find pd, [place], errol and respect stay for pt." that is not good, had 1 pd interview this am and they let us know and then have another one this afternoon that is why no one has been up today, if the place for mom can call me that would be help full, they can call [phone]"/nilsa. yvonne passed on information to gifty liaison with place for mom.
--- NOTE | 2018-10-02 16:28 | NUR ---
DR. DANIEL NOTIFIED ABOUT PT REFUSING TO PARTICIPATE IN SCHEDULED THERAPIES. DR. DANIEL SPOKE WITH PT AND PT REPORTEDLY IS WILLING TO WORK WITH THERAPIES AT THIS TIME. PT VISITIED WITH PT ABOUT THERAPIES. PT GIVEN INFORMATION FROM ABOUT PROGRAM THAT CAN HELP PT FIND ASSISTANCE FOLLOWING D/C. INFORMATION FROM PROGRAM LEFT WITH PT IN PT ROOM. FALL PRECAUTIONS IN PLACE AND NURSING WILL CONTINUE TO MONITOR.
[2018-10-02 19:40] VITALS: BP 113/60
--- NOTE | 2018-10-03 02:00 | NUR ---
ASSESSMENT: PT REMAIN ALERT AND ORIENT TIMES THREE. PRN PAIN MEDICATIONS GIVEN WITH GOOD RESULTS, PT SLEEPIMG POST TAKING PAIN MEDS. TURNED EVERY TWO HOURS. MYPELEX INTACT ON SACRAL AREA. VSS, AFEBRILE. PT APPEARS SOME WHAT DEPRESSED R/T NOT BEING ABLE TO DISCHARGE TO HOME THIS PAST SUNDAY. STATES THAT HIS HURT HIS FEELINGS BY SAYING THAT SHE COULD NOT TAKE CARE OF HIM. ENCOURAGEMENT WAS OFFERED TO THE PT TO TRY TO STAY POSITIVE ABOUT HIS POC AND THAT THINGS WILL WORK OUT FOR HIM. SLOW PROGRESS, WILL CONTINUE TO MONITOR.
[2018-10-03 07:25] VITALS: BP 116/63
--- NOTE | 2018-10-03 10:04 | NUR ---
WOUND CARE FOLLOW UP; THE WOUNDS ARE DRAMATICALLY IMPROVED THIS ADMISSION. HOME HEALTH WILL BE FOLLOWING THIS PATIENT. WOUND CARE ORDERS HAVE BEEN ENTERED. RECOMMENDATIONS; ACW MARISOL DAILY/PRN DISCUSSED D/C NEEDS WITH RN
--- NOTE | 2018-10-03 10:34 | NUR ---
DISCHARGE PLANNING. PATIENT DISCHARGING TO HOME TODAY. HOME HEALTH RECOMMENDED FOR PATIENT. REFERRAL FAXED TO [facility] PER PATIENT AND FAMILY REQUEST. CALL PLACED TO [facility] INTAKE TO NOTIFY OF PATIENTS DISCHARGE TO HOME TODAY AND HH NEEDS. AWAITING RESPONSE FROM [facility]. FOLLOWING.
--- NOTE | 2018-10-03 10:44 | NUR ---
yvonne notified by burlap man and bedside nurse that pt family have set up 13hr/day x 7 days for pd and they he will have hh with [facility], going to dc today. yvonne spoke with daughter to see if needed any referral sent for pd no if have question will call, thank you " brother set up with interim pd"/farzad. cm visited with pt to let him know if needs any to call, [facility] will resume and have pd " i know nothing about this no one has told me i am going home with that and i did not set that up ok"/gwendolyn. active listen during visit, pt was short with word, letting pt rest and will cont following as needed for dc needs. if needed.
--- NOTE | 2018-10-03 12:19 | H ---
[facility] [place] [address] HISTORY AND PHYSICAL Name: ERICK WOODS Room #: 512-P ADM IN M.R.#: [id number] Admission: 09/23/18 Attend Phys: Aston Sharp MD Discharge: Date of : 53 Report #: [id number] THIS REPORT FOR: //name// CC: Aston Gallardo DATE OF SERVICE: 09/23/2018 HISTORY AND PHYSICAL AND POSTADMISSION PHYSICIAN EVALUATION HISTORY OF PRESENT ILLNESS: The patient has been readmitted to the acute inpatient rehab [facility]. Please see my full dictation from before when he initially was admitted before he was transferred down to the Critical Care. He was treated for atrial fibrillation with rapid ventricular rate and heart rate controlled and in sinus rhythm. He has now been readmitted. Dr. Varela's consultation is noted and appreciated as well from a psychiatric perspective. Please see the nurse practitioner's history and physical and agree with findings as documented. From a postadmission physician evaluation perspective, there are no relevant changes since the preadmission screening. Please see the noted review of prior and current medical and functional conditions and comorbidities. Please see the patient's previous and current functional status. As far as risk of complications, he does have the multiple medical comorbidities as noted above. Initial plan of care involves the interdisciplinary acute inpatient rehabilitation program with goal of maximizing his functional independence so he can hopefully return back to his prior living situation. Our goal is to get him independent with basic wheelchair transfers so he can return back home. Goals to achieve a level of mobility and ADL independence, which he had prior. Prognosis is reasonably good with estimated length of stay probably at least 2-3 weeks pending progress. Potential barriers would include his above noted medical comorbidities and decreased functional status. The patient meets diagnostic criteria for an acute in-hospital inpatient rehabilitation stay. He meets the medical necessity criteria. We will have the exchange consultant physicians continue to follow. He does have the tolerance for therapies and has appropriate discharge goals back to the home setting. <ELECTRONICALLY SIGNED> By: Aston Sharp MD 10/03/18 1219 1031 [id number] Aston Sharp MD /nt
--- NOTE | 2018-10-03 12:19 | PLAN ---
[facility] [place] [address] REHAB UNIT PLAN OF CARE Name: ERICK WOODS Room #: 512-P ADM IN M.R.#: [id number] Admission: 09/23/18 Attend Phys: Aston Sharp MD Discharge: Date of : 53 Report #: [id number] THIS REPORT FOR: //name// CC: Aston Gallardo DATE OF SERVICE: 09/25/2018 PROGRESS NOTE/OVERALL PLAN OF CARE SUBJECTIVE: The patient is seen back today in followup. He is in no distress. Seems to be sleeping a little bit better, although he does not like the bed. We are working on stretching his lower extremities and he was actually able to demonstrate grade 3, bilateral ankle dorsiflexion. He is motivated in therapies and we are working with him on transfers with ability to perform seated pushup to clear his buttocks. He is able to demonstrate weight shift to achieve pressure relief. He has completed sit to stand, getting up to the parallel bars with min assist for lift and lower. He does have [id number] cognitive deficits with qwwx-az-bokscweu memory deficits. He does have the power wheelchair. Wound care is monitoring his skin. ASSESSMENT: 1. Advanced multiple sclerosis with bilateral lower extremity paraplegia. 2. Toxic metabolic encephalopathy, improving. 3. Atrial fibrillation with rapid ventricular rate continues in sinus rhythm. 4. Acute sigmoid diverticulitis with sepsis, resolving. 5. Chronic pain syndrome. 6. Skin being monitored sacrum and buttocks. 7. Hypertension. 8. Chronic constipation. PLAN: The overall plan of care is based on the preadmission screen, post-admission physician evaluation and information garnered from therapy assessments. 1. Estimated length of stay is currently planning for discharge on Sunday. 2. Medical prognosis is reasonably good. 3. Anticipated interventions includes the interdisciplinary acute inpatient rehabilitation program. 4. Anticipated functional outcomes would be for the patient to become maximally independent with basic transfers as well as to hopefully further improve mobility as well as basic ADLs and cognition, so that he can return back to the home setting. 5. Discharge back home with family. 6. Expected therapy by discipline includes PT, OT, speech 1 hour per day each [address] [address] REHAB UNIT PLAN OF CARE Name: ERICK WOODS YANETH Room #: 512-P ADM IN ..#: [id number] Admission: 09/23/18 Attend Phys: Aston Sharp MD Discharge: Date of : 53 Report #: [id number] five days a week throughout the duration of the acute inpatient rehabilitation stay. <ELECTRONICALLY SIGNED> By: Aston Sharp MD 10/03/18 1219 [id number] [id number] Aston Sharp MD /nt
[2018-10-03 12:45] VITALS: BP 116/63
[2018-10-03] MEDS ORDERED: FLOMAX0.4 MG PO (13:33)
[2018-10-03] MEDS ORDERED: ELIQUIS5 MG PO (13:33)
[2018-10-03] MEDS ORDERED: PEPCID20 MG PO (13:37)
[2018-10-03] MEDS ORDERED: LIDOPATCH1 EACH TRANSDERM ×2 (13:37→16:01)
[2018-10-03] MEDS ORDERED: METOPROLOL SUCC50 MG PO (13:38)
[2018-10-03 14:24] VITALS: BP 116/63
[2018-10-03] MEDS ORDERED: PROBIOTIC1 EAC1 PO (15:52)
[2018-10-03] MEDS ORDERED: NEURONTIN 300300 M1 PO (15:53)
[2018-10-03 16:06] VITALS: BP 116/63
[2018-10-03 17:36] VITALS: BP 116/63
--- NOTE | 2018-10-03 19:14 | NUR ---
ASSUMED CARE OF PT AT 0715. PT IS A&OX4 AND VITAL SIGNS ARE STABLE. PT PARTICIPATED IN OT THIS MORNING. THIS NURSE CALLED BY LESLYE LARA AND TOLD THAT FAMILY HAS HOME HEALTH ARRANGED AND PT ABLE TO HAVE SERVICES EARLY TODAY IF DISCHARGED. NURSE NOTIFIED SENIOR JAVA SOFTWARE DEVELOPER AND BARI VILLATORO NP ABOUT CONVERSATION. ORDERS GIVEN TO DISCHARGE PT TODAY. DISCHARGE EDUCATION GIVEN, PRESCRIPTION SLIPS GIVEN TO PT, PT SIGNED DISCHARGE PAPERWORK. WOUND CARE PERFORMED. PT DISCHARGED WITH CHILD TO MEDICAL WITH ASSISTANCE FROM VOLUNTEERS AT APPROXIMATLY 1600.
--- NOTE | 2018-10-05 12:34 | HC ---
[facility] [place] [address] CONSULTATION Name: ERICK WOODS Room #: 512-P [facility] IN M.R.#: [id number] Admission: 09/23/18 Attend Phys: Aston Sharp MD Discharge: 10/03/18 Date of : 53 Report #: [id number] THIS REPORT FOR: //name// CC: Aston Salinas Vincento DATE OF SERVICE: 09/28/2018 NEUROBEHAVIORAL STATUS EXAM ATTENDING PHYSICIAN: Aston Sharp MD ROTARY DRIER: Maldonado Garcia, PhD CLINICAL PRESENTATION: The patient is a 62-year-old male admitted to the rehabilitation unit at [facility] for a comprehensive inpatient rehabilitation program functional mobility, activities of daily living and self-care and mental status. He was reported to have been admitted to the hospital on 09/19/2018 with nausea, vomiting and abdominal pain. He was diagnosed with an acute diverticulitis. His medical condition has stabilized and he was subsequently admitted for inpatient rehabilitation. He does have a past medical history that includes chronic pain syndrome, hypertension, opiate dependence, AFib, neurogenic bladder, spasticity and chronic constipation. His assessment on the rehab unit is advanced MS with bilateral lower extremity paraplegia, toxic metabolic encephalopathy that is improving, atrial fibrillation, acute sigmoid diverticulitis with sepsis, resolving, chronic pain syndrome, stage 2 pressure ulcers, hypertension and chronic constipation. A complete description of his medical condition and history can be found in his medical record. Neuropsychological consultation was requested to provide assistance in the assessment of cognitive and emotional status and to provide recommendations and services. Prior to this most recent admission, he was living with his in their home. He is , with 2 children. 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 He has completed the twelfth grade and graduated from high school. The patient reports a history of alcohol abuse between the ages of 17 and 47. He has not abused alcohol for the last 13 years. He does not report difficulty with prior use of marijuana or tobacco. TECHNIQUES UTILIZED: Clinical interview, review of medical records, staff consultation and behavioral observation, mini mental status exam 2 standard version, clock drawing and verbal fluency assessment (letter and category). [facility] [address] [place] [address] CONSULTATION Name: ERICK WOODS Room #: 512-P [facility] IN M.R.#: [id number] Admission: 09/23/18 Attend Phys: Aston Sharp MD Discharge: 10/03/18 Date of : 53 Report #: [id number] EXAMINATION FINDINGS: The patient was alert and cooperative with the assessment. He accurately described events surrounding his admission. There is no evidence of aphasia. His thoughts are logical and goal oriented. There is no evidence of thought disorder. He was alert and cooperative throughout the assessment. He reports his symptoms to include sleep disturbance, depression, decreased appetite. He does not report difficulty with anxiety or cognitive functioning. He does acknowledge his mood is more irritable. Prior to this most recent hospitalization, he reports that he was not driving, but was managing independently activities of daily living including bathing and medication management. His performance on the MMSE 2 brief version was within normal limits with a raw score of 15/16. Performance on the MMSE 2 standard version is within normal limits with a raw score of 28/30. The patient is alert and oriented. He had difficulty with copying a simple geometric design and missed 1/3 for immediate recall of 3 items after a brief time delay and distraction. Performance on clock drawing suggests functioning is within normal limits. Category fluency was a raw score of 26, which is a T score of 30 and percentile rank at 2. Letter fluency was a raw score of 18, which is a T score of 42 and percentile rank of 21. Overall, verbal fluency was the T score of 34, percentile rank of 5. Deficits in higher level conceptual reasoning, planning and problem solving are suggested. DIAGNOSTIC IMPRESSION: Mild neurocognitive disorder, likely due to multiple sclerosis, with inconsistent insight. Unspecified depressive disorder. RECOMMENDATION: Educational information regarding strengths and weaknesses that includes the extent of help that he will require to maintain independent living in his home. Treatment for neurocognitive deficits that includes the use of medication to support memory. Verbal praise and complements about participation in treatment along with emphasizing personal strengths and characteristics will also help the overall general attitude. The use of antidepressant medication may also be of benefit. [facility] [address] [place] [address] CONSULTATION Name: ERICK WOODS Room #: 512-P [facility] IN M.R.#: [id number] Admission: 09/23/18 Attend Phys: Aston Sharp MD Discharge: 10/03/18 Date of : 53 Report #: [id number] Thank you very much for allowing me to provide the consultation on this patient. <ELECTRONICALLY SIGNED> By: Maldonado Garcia, PhD 10/05/18 1234 [id number] Maldonado Garcia, PhD /nt
== END 2018-10-03 17:00 | disposition home health service (06) | DRG 58 ==
LOC: ENTRNSPT 10-03 16:32
PROVIDERS: Nurse Practitioner; ADMIT Physical Medicine & Rehabilitation
DX: G35 Multiple sclerosis (principal); G92 Toxic encephalopathy; A41.9 Sepsis, unspecified organism; E43 Unspecified severe protein-calorie malnutrition; K57.32 Diverticulitis of large intestine without perforation or abscess without bleeding; F11.20 Opioid dependence, uncomplicated; I48.91 Unspecified atrial fibrillation; G89.4 Chronic pain syndrome; I10 Essential (primary) hypertension; K59.09 Other constipation; G82.20 Paraplegia, unspecified; Z99.3 Dependence on wheelchair; L89.152 Pressure ulcer of sacral region, stage 2; L89.322 Pressure ulcer of left buttock, stage 2; L89.312 Pressure ulcer of right buttock, stage 2; F43.20 Adjustment disorder, unspecified; N31.9 Neuromuscular dysfunction of bladder, unspecified; R33.9 Retention of urine, unspecified; G31.84 Mild cognitive impairment of uncertain or unknown etiology; F32.9 Major depressive disorder, single episode, unspecified; F42.9 Obsessive-compulsive disorder, unspecified; Z79.899 Other long term (current) drug therapy; Z68.26 Body mass index [BMI] 26.0-26.9, adult
CPT/HCPCS: 10112

== ENCOUNTER 2018-10-16 09:09 | Emergency (ER) | payer OTHER ==
[~2018-10-16] VITALS: Ht 182.9 cm; Wt 77.1 kg
[~2018-10-16 09:09] MED LIST changes: +CELEXA 20 MG TA20 MG PO; +ELIQUIS5 MG PO; +FLOMAX0.4 MG PO; +LOPERAMIDE 2 MG2 MG PO; +METOPROLOL SUCC50 MG PO; +NEURONTIN 400400 M1 PO; +PROBIOTIC1 EAC1 PO
[2018-10-16] MEDS ORDERED: XANAX 0.5 MG0.5 MG PO (09:54)
[2018-10-16 10:06] LABS: BASOPHILS 0.6 % (0.0-2.0); EOSINOPHILS 3.5 % (0.0-3.0); HEMATOCRIT 33.6 % (42.0-52.0); HEMOGLOBIN 10.9 gm/dL (14.0-18.0); LYMPHOCYTES 14.3 % (24.0-44.0); MCH 27.8 pg (26.0-34.0); MCHC 32.3 g/dL (28.0-37.0); MONOCYTES 9.1 % (1.0-8.0); PLATELET COUNT 252 thou/uL (150-400); POLYS 72.5 % (36.0-66.0); RBC 3.91 mil/uL (4.50-6.00); RDW 14.8 % (10.5-14.5); WBC 8.2 thou/uL (4.0-11.0)
[2018-10-16 10:09] LABS: CALCIUM 9.6 mg/dL (8.5-10.1); CREATININE 0.6 mg/dL (0.7-1.3); POTASSIUM 3.9 mmol/L (3.5-5.1)
[2018-10-16 10:14] LABS: ALBUMIN 3.4 g/dL (3.4-5.0); TOTAL BILIRUBIN 0.5 mg/dL (<0.1-1.0); TOTAL PROTEIN 7.6 g/dL (6.4-8.2)
[2018-10-16 11:20] LABS: URINE BILIRUBIN NEGATIVE (Negative); URINE BLOOD 3+ (Negative); URINE COLOR YELLOW; URINE GLUCOSE-RANDOM* NEGATIVE (Negative); URINE KETONES NEGATIVE (Negative); URINE LEUKOCYTES 2+ (Negative); URINE NITRITE POSITIVE (Negative); URINE PROTEIN (DIPSTICK) 1+ (Negative); URINE SPECIFIC GRAVITY 1.025 (1.005-1.035); URINE UROBILINOGEN 0.2 E.U./dl (0.2-1.0)
[2018-10-16 11:22] LABS: URINE CLARITY HAZY
[2018-10-16 11:33] LABS: CASTS None Seen /LPF (None Seen); SQUAMOUS 0-3 Few /LPF (0-3); URINE WBC >25 Many /HPF (0-5)
[2018-10-16 11:34] LABS: BACTERIA >30 Many /HPF (None Seen); CALCIUM OXALATE 0-3 Few /LPF (None Seen); URINE RBC 0-2 Rare /HPF (0-2); YEAST Present (None Seen)
[2018-10-16] MEDS ORDERED: CEFDINIR300 MG PO (13:12)
[2018-10-16] MEDS ORDERED: FLAGYL500 M1 PO (13:12)
[2018-10-16 13:46] VITALS: BP 137/67
[2018-10-21] MEDS ORDERED: NEURONTIN 300300 M1 PO ×2 (13:54→14:14)
[2018-10-21] MEDS ORDERED: PROBIOTIC1 EAC1 PO (13:55)
[2018-10-21] MEDS ORDERED: LOPERAMIDE 2 MG2 M1 PO (13:55)
[2018-10-21] MEDS ORDERED: TOPROL XL25 MG PO (13:57)
[2018-10-21] MEDS ORDERED: ELIQUIS5 MG PO (13:58)
[2018-10-21] MEDS ORDERED: FLOMAX0.4 MG PO (13:58)
[2018-10-21] MEDS ORDERED: MS CONTIN15 MG PO ×2 (13:58→14:19)
[2018-10-21] MEDS ORDERED: MORPHINE SULFAT15 MG PO (14:19)
[2018-10-21] MEDS ORDERED: HYDROCODON-ACE1 EAC5 PO (14:19)
== END 2018-10-16 13:48 | disposition left against medical advice (07) ==
LOC: ER 09:09
PROVIDERS: Emergency Medicine
DX: R19.7 Diarrhea, unspecified (principal); L89.152 Pressure ulcer of sacral region, stage 2; I10 Essential (primary) hypertension; G89.29 Other chronic pain; G35 Multiple sclerosis

== ENCOUNTER → 2018-10-21 | Outpatient (CLI) | payer OTHER ==
[~2018-10-21] MED LIST changes: +CEFDINIR300 MG PO; +FIRVANQ25 MG/1 ML PO; +FIRVANQ50 MG/1 ML PO; +IPRAT-ALBUT 0.5-3 ML INH; +LIDOCAINE 2%2 %/5 GM TOP; +LOPERAMIDE 2 MG2 M1 PO; +MORPHINE SULFAT15 MG PO; +TOPROL XL25 MG PO; +XANAX 0.5 MG0.5 MG PO
[2018-10-21 13:38] VITALS: BP 154/86
--- NOTE | 2018-10-21 13:59 | NUR ---
Pain Clinic Assessment: 1. History of Osteoarthritis: Not Applicable History of Rheumatoid Arthritis: Not Applicable 2. Height: 6 ft. in. 182.9 cm. Weight: lb. oz. kg. Patient's BMI: 3. Vital Signs: BP: 154/86 Pulse: 66 Resp: 14 Temp: 02 Sat: 100 ECG Mon: 4. Pain Intensity: 9 5. Fall Risk: Dizziness: N Needs help standing or walking: Y Fallen in the last 3 months: N Fall risk comments: 6. Patient on Blood Thinner: None 7. History of Hypertension: Y 8. Opioid Therapy greater than 6 weeks: Y Opiate Contract Signed: 03/29/17 9. Risk Assessment Tool Provided: LOW RISK 0/3 10. Functional Assessment Tool: 60/70 11. Recreational Drug Use: Never Drug Type: Tobacco Use: Never Smoker Tobacco Type: Amount or Packs/day: How Many Years: Alcohol Use: Past use Frequency: Quant:
--- NOTE | 2018-10-24 12:43 | HPC ---
[facility] [address] PAIN MANAGEMENT CONSULTATION Name: ERICK WOODS Room #: REG WILLIAM Oliveira#: [id number] Admission: 10/21/18 Attend Phys: Kimmie Talavera Discharge: Date of : 53 Report #: [id number] THIS REPORT FOR: //name// CC: Kimmie Gallardo DO DATE OF SERVICE: 10/21/2018 CHIEF COMPLAINT: Chronic pain as a result of multiple sclerosis. HISTORY OF PRESENT ILLNESS: This is a 63-year-old gentleman who returned to the pain clinic today for refill of his medications that he uses to help treat his pain from his multiple sclerosis. He has pain in his bilateral legs, feet and continues to have muscle spasms. He believes the medicine is very beneficial in helping relieve his pain. He tells me he had recently been in the hospital here at [facility] for about 3 weeks for severe diverticulitis. He was having abdominal pain and nausea and vomiting. While he was in the hospital, he was sent to the rehab unit where he experienced any irregular heartbeat. He was transferred back to the hospital where he was treated for atrial fibrillation, started on anticoagulation therapy. He was finally discharged home, per his report, at the end of September and has been having physical therapy, occupational therapy and home nursing care since he has gone home. The patient reports that he was able to continue his medications when he was in the hospital, though he was discharged with a script of oxycodone from Dr. Gallardo. Since he has been home only on that medicine, he realized how beneficial his morphine and hydrocodone were in treating his pain. He would like a refill of that medication today. ALLERGIES: No known drug allergies. CURRENT LIST OF MEDICATIONS: Eliquis 5 mg b.i.d., Flomax 0.4 mg daily, morphine ER 15 mg b.i.d., metoprolol 50 mg daily, probiotic, gabapentin 900 mg 3 times a day and Xanax p.r.n. PQRS: 1. The patient is not being treated for osteoarthritis or rheumatoid arthritis. 2. Height is 6 feet, unsure of his weight. Vital signs 154/86, pulse is 66, respirations 14, oxygen sat is 100. 3. Pain score is 9/10. 4. Denies dizziness. Does need help walking and standing. He is in a wheelchair, has not fallen in the last 3 months. 5. He is on Eliquis. He is being treated for hypertension. 6. Opioid therapy is greater than 6 weeks; therefore, an opiate signed contract is on the chart. Risk assessment tool is low. Functional assessment 60/70. 7. Recreational drug use, he denies. He is not a smoker and does not drink alcohol. [address] [address] PAIN MANAGEMENT CONSULTATION Name: ERICK WOODS Room #: REG [facility] Tee#: [id number] Admission: 10/21/18 Attend Phys: Kimmie Talavera Discharge: Date of : 53 Report #: [id number] According to the prescription monitoring system, the patient did fill that prescription from Dr. Gallardo of oxycodone on 06/08/2018. Otherwise, he has not had any morphine or hydrocodone since the last fill in August. PHYSICAL EXAMINATION: GENERAL: This is a 63-year-old gentleman who appears his stated age, placing his current pain score at 9/10 today. He is in a wheelchair. His family is present. His affect is appropriate. HEENT: Normocephalic, atraumatic. Extraocular eye muscles are intact. Mucous membranes are moist. NECK: Without adenopathy or JVD. MUSCULOSKELETAL: Complains of back pain and muscle pain in his lumbar spine. He has joint stiffness in his lower extremities and calf. He has significant weakness in all extremities and in a powered electric wheelchair. His legs are edematous at 2-3+ in his lower extremities bilaterally. IMPRESSION: 1. Chronic pain syndrome secondary to multiple sclerosis, treated palliatively. 2. Depression. 3. Neurogenic bladder. 4. Spasticity with abnormal involuntary movements. 5. Skin sensation disturbances. 6. Complex medical management, under terms of written opioid agreement. 7. Atrial fibrillation, on anticoagulation therapy. We reviewed the fact that opiate medications are being used to provide analgesia adequate to support activities of daily living, not attempting to achieve a specific pain score on the 0-10 Visual Analog Scale. The current opiate medications are providing sufficient analgesia to allow the patient to participate in activities of daily living. The patient is not exhibiting any aberrant behavior suggestive of drug diversion. The patient is not having any adverse reactions to medications. The patient is not suffering from daytime somnolence or mental acuity changes. The patient is managing opiate-induced constipation with appropriate ufcy-eyy-hambwet agents and dietary considerations. The patient was counseled on concern for caution with operating a motor vehicle while using opiate medications. A physical exam was performed and the patient's functional status was evaluated. All patients with back pain were advised against the bed rest greater than 4 days and were advised to return to normal activities. Pain score assessment was noted and the treatment plan was reviewed with the patient. All current medications, both prescribed and OTC were reviewed and reconciled on the electronic medical record. Tobacco screening was accomplished and smoking cessation was advised when indicated. BMI was noted and diet/exercise modification was recommended for all patients following outside normal [facility] [address] [place] [address] PAIN MANAGEMENT CONSULTATION Name: ERICK WOODS Room #: REG WILLIAM CrockettBenjaminPaul.#: [id number] Admission: 10/21/18 Attend Phys: Kimmie Talavera Discharge: Date of : 53 Report #: [id number] parameters. I reviewed with the patient today their responsibilities to safeguard prescription medications, reviewed their responsibility to utilize medications only as prescribed by the physician. They are to seek and receive pain medications only from 1 physician group ( [facility]). They are to use 1 pharmacy and keep the clinic informed if they change pharmacies. Their responsibilities include making followup visits in a timely fashion and to avoid abrupt discontinuation of medication usage. Their responsibilities further include bringing their medications (bottles from the pharmacy with residual pills) to the visit for possible confirmation of pill counts and the patient understands it is their responsibility to submit to random drug screens to ensure both that the medications prescribed are present, and that no other controlled substances are present. All prescriptions provided today were generated electronically. PLAN: 1. We discussed treatment options with the patient today. While patient was hospitalized, they had increased his gabapentin to 900 mg 3 times a day. The patient felt that this was beneficial in controlling some of his pain. He had currently been on 600 three times a day. We will increase this, but caution the patient if he continues to have lower extremity edema, he may need to decrease this medicine. We talked about the lowest most effective dose. The patient verbalizes understanding. Scripts given today for gabapentin 300 mg #270 with one additional refill. 2. Since the patient is currently on Eliquis, we informed him that he is no longer able to be on nabumetone due to the risk of that medicine. The patient verbally understands this. He is utilizing his Voltaren gel from Dr. Gallardo. He finds this medicine very beneficial in helping his generalized joint pain. He is wondering about a refill for this medication. I explained to him currently we will have Dr. Gallardo continue this medicine. If Dr. Gallardo does take him off his Eliquis, then we may take overwriting that, but since he is seeing his primary in 2 weeks, we will await his doctor's guidance. 4. We will continue the patient on his previous medications of MS Contin 15 mg b.i.d. and hydrocodone 10/325, enabling him to take 4 a day, #120. These were refilled for today and again in [address]. [address] the patient at 70 morphine mEq per day according to the CDC guidelines. 5. We did talk about hospice briefly with the patient today. The patient is currently not interested in this option in case he does need to seek medical attention. 6. Dr. Lam Mcnamara did come and see the patient as well today and [address] [address] PAIN MANAGEMENT CONSULTATION Name: ERICK WOODS Room #: REG WILLIAM Oliveira#: [id number] Admission: 10/21/18 Attend Phys: Kimmie Talavera Discharge: Date of : 53 Report #: [id number] collaborated care. The patient will return in [address] Ronald Altamirano. <ELECTRONICALLY SIGNED> By: Kimmie Talavera 10/24/18 1243 1511 0105 Kimmie Talavera /nt
== END ==
LOC: PAIN 06:52
DX: G89.4 Chronic pain syndrome (principal); G35 Multiple sclerosis; F32.9 Major depressive disorder, single episode, unspecified; N31.9 Neuromuscular dysfunction of bladder, unspecified; R25.2 Cramp and spasm; I48.91 Unspecified atrial fibrillation; Z79.899 Other long term (current) drug therapy; Z79.891 Long term (current) use of opiate analgesic

== ENCOUNTER 2018-10-26 01:43 | Inpatient (IN) | payer OTHER ==
[2018-10-26] VITALS (7 sets, daily range): BP systolic 110–127; BP diastolic 48–65
[~2018-10-26] VITALS: Ht 185.4 cm; Wt 72.6 kg
[~2018-10-26 01:43] MED LIST changes: -FIRVANQ25 MG/1 ML PO; -FIRVANQ50 MG/1 ML PO; -IPRAT-ALBUT 0.5-3 ML INH; -LIDOCAINE 2%2 %/5 GM TOP
[2018-10-26 02:06] LABS: HEMATOCRIT 34.3 % (42.0-52.0); MCH 27.2 pg (26.0-34.0); MCHC 31.9 g/dL (28.0-37.0); PLATELET COUNT 266 thou/uL (150-400); RBC 4.03 mil/uL (4.50-6.00); RDW 14.8 % (10.5-14.5); WBC 18.5 thou/uL (4.0-11.0)
[2018-10-26 02:09] LABS: CALCIUM 8.8 mg/dL (8.5-10.1); CREATININE 0.7 mg/dL (0.7-1.3); POTASSIUM 3.7 mmol/L (3.5-5.1)
[2018-10-26 02:53] LABS: ABSOLUTE NEUTROPHILS 16.7 thou/uL (1.4-8.2); METAMYELOCYTES 1 %
[2018-10-26 03:18] LABS: URINE BILIRUBIN NEGATIVE (Negative); URINE BLOOD 3+ (Negative); URINE CLARITY CLOUDY; URINE COLOR YELLOW; URINE GLUCOSE-RANDOM* NEGATIVE (Negative); URINE KETONES NEGATIVE (Negative); URINE NITRITE-REFLEX NEGATIVE (Negative); URINE PROTEIN (DIPSTICK) 2+ (Negative); URINE SPECIFIC GRAVITY 1.025 (1.005-1.035); URINE UROBILINOGEN 0.2 E.U./dl (0.2-1.0)
[2018-10-26 03:19] LABS: URINE LEUKOCYTES-REFLEX 1+ (Negative)
[2018-10-26 03:28] LABS: CASTS None Seen /LPF (None Seen); MUCUS 4-6 Moderate strn/LPF (None Seen); SQUAMOUS 0-3 Few /LPF (0-3)
[2018-10-26 03:29] LABS: BACTERIA-REFLEX >30 Many /HPF (None Seen); CRYSTALS None Seen /LPF (None Seen); URINE RBC >20 Many /HPF (0-2); URINE WBC-REFLEX >25 Many /HPF (0-5); WBC CLUMPS Few (None Seen); YEAST-REFLEX Present (None Seen)
--- NOTE | 2018-10-26 08:01 | NUR ---
PT WAS ADMITTED TO THE UNIT FROM THE ER AT APPROX 0600 IN A STABLE CONDITION.PT C/O PAIN ON ADMISSION,MANAGED WITH MEDICATION.ADMISSION HX AND EDUCATION COMPLETED.IVF INFUSING ORDERED.REPORT TO AM NURSE.
--- NOTE | 2018-10-26 19:32 | NUR ---
ASSUMED CARE OF PATIENT AT 0715, PATIENT ALERT WITH CONFUSION/FORGETFUL. PATIENT C/O PAIN WITH LOW BACK/CHRONIC AND DISCOMFORT WITH BUTTOCKS, SMALL OPEN AREAS NOTED, PICTURES TAKEN OF BUTTOCKS AND RIGHT HEEL, THIS RN NOTIFIED DR REED OF WOUND AREAS, HE CAME OVER AND SAW BOTH AREAS. PATIENT GIVEN HYDROCODONE AND MS CONTIN SCHEDULED THIS SHIFT, PATIENT WAS ASKING FOR LIDOCAINE JELLY FOR BUTTOCKS AND MORPHINE IV FOR PAIN THIS RN NOTIFIED DR REED. PATIENT ADMITTED FOR COLITIS/DIARRHEA/LEUKOCYTOSIS. STOOL SAMPLE OBTAINED FOR C-DIFF. NEED STOOL FOR OTHER STOOL ORDERS, ISOLATION IN PLACE UNTIL STOOL RESULTS RECEIVED. BEDBOUND AND TOTAL CARE/TRUN EVERY 2 HOURS. LEFT WRIST IV WITH NS AT 100CC/HR, ALSO RECEIVED 2 IV ANTIBIOTICS THIS SHIFT. WILL CONTINUE TO MONITOR. BILATERAL LEGS EDEMA 3-4+ PITTING. LEFT WRIST IV WITH
--- NOTE | 2018-10-27 03:45 | NUR ---
PATIENT ALERT AND ORIENTED X4 WITH FORGETFULNESS. PATIENT STATED TO AM NURSE AT SHIFT CHANGE THAT HE HAD NOT RECEIVED ANY OF HIS MEDICATIONS. THAT NURSE REORIENTED HIM AND ALSO WENT THROUGH HIS MED LIST WITH HIS QUESTIONS. REDNESS TO HIS BUTTOCK, GROIN AND PENIS - BARRIER CREAM PLACED. NO BM DURING THE NIGHT AT TIME OF NOTE. PATIENT C/O PAIN AND MEDICATED WITH HYDROCODONE AND TYLENOL WELL SCHEDULED MORPHINE CR. SLIGHT TEMP OF 99.3. MONITORING. RESTING QUIETLY.
[2018-10-27 08:02] VITALS: BP 122/60
[2018-10-27 08:59] LABS: HEMATOCRIT 29.1 % (42.0-52.0); HEMOGLOBIN 9.6 gm/dL (14.0-18.0); MCH 27.7 pg (26.0-34.0); MCV 83.8 fL (80.0-100.0); RBC 3.48 mil/uL (4.50-6.00); RDW 14.7 % (10.5-14.5); WBC 10.6 thou/uL (4.0-11.0)
[2018-10-27 09:12] LABS: CALCIUM 8.3 mg/dL (8.5-10.1); CREATININE 0.5 mg/dL (0.7-1.3); MAGNESIUM 1.5 mg/dL (1.8-2.4)
--- NOTE | 2018-10-27 10:48 | HC ---
[facility] [place] [address] CONSULTATION Name: ERICK WOODS Room #: 421-P ADM IN M.R.#: [id number] Admission: 10/26/18 ������������������ Attend Phys: Humza Waite MD Discharge: ������������������ Date of : 53 Report #: [id number] THIS REPORT FOR: //name// CC: Brad Waite DATE OF SERVICE: 10/26/2018 HISTORY OF PRESENT ILLNESS: The patient is a 63-year-old male with intermittent chronic diarrhea, which is the reason for GI consultation. Denies any obvious blood in his stools. Apparently, he has never had a colonoscopy in the past. He has had several recent hospitalizations. He has had 3 CT scans of the abdomen and pelvis; 1 today, which showed CT findings consistent with a pancolitis and diffuse circumferential mural thickening of the colon, no evidence of perforation or abscess. The patient had a CT scan of the abdomen and pelvis on 10/16/2018, which showed diffuse left colon wall thickening involving the sigmoid colon; colitis, ischemia, or other cause is not excluded. Also, he had a CT scan on 09/18/2018, which showed findings suggestive of mild sigmoid diverticulitis versus localized colitis with chronic constipation, possible cystitis noted. The patient does have a chronic indwelling Hollingsworth catheter for urinary incontinence. He also has a history of significant multiple sclerosis. He denies any abdominal pain, no nausea or vomiting. Apparently, his weight has been stable. He has been placed on Cipro and Flagyl. He had been on antibiotics for suspected diverticulitis in the past as well recently. His white count is elevated at this time in the 18 range. He denies any fevers or chills. He denies any chest pain or shortness of breath. Also, denies any blood in his stools currently. He did have a stool that was Hemoccult-positive on 10/16/2018. PAST MEDICAL HISTORY: MS, hypertension, history of atrial fibrillation, neurogenic bladder, status post chronic indwelling Hollingsworth catheter, recent history of possible diverticulitis versus colitis per CT scans, history of constipation, chronic back pain, and history of AFib. ALLERGIES: No known drug allergies. REVIEW OF SYSTEMS: As per HPI. FAMILY HISTORY: Negative for colon cancer. SOCIAL HISTORY: Denies any tobacco use. Denies any recent alcohol use. CURRENT MEDICATIONS: Alprazolam, Flagyl, ciprofloxacin, albuterol and Atrovent, morphine p.r.n., metoprolol, tamsulosin, lactobacillus, gabapentin, hydrocodone p.r.n., Tylenol, Zofran p.r.n., IV fluids, digoxin . [address] [address] CONSULTATION Name: ERICK WOODS YANETH Room #: 421-P [facility] IN M.R.#: [id number] Admission: 10/26/18 ������������������ Attend Phys: Humza Waite MD Discharge: ������������������ Date of : 53 Report #: [id number] PHYSICAL EXAMINATION: VITAL SIGNS: Temperature 101.3, pulse 105, blood pressure 123/62, respiratory rate is 15. GENERAL: He is alert and oriented x 3, in no acute distress. HEENT: Sclerae nonicteric. Oropharynx clear. NECK: Supple, without lymphadenopathy. CARDIOVASCULAR: Regular rhythm, mildly tachycardic. CHEST: Clear to auscultation anteriorly bilaterally. ABDOMEN: Soft. He is nontender, nondistended. Positive bowel sounds. EXTREMITIES: Weakness throughout. Minimal edema in the lower extremities bilaterally. LABORATORY DATA: Sodium 134, potassium 3.7, chloride 100, bicarbonate 27, BUN 9, creatinine 0.7, glucose 103. WBC is 18.5, hemoglobin 11.0, platelet count 266. C. diff on 09/27/2018 was negative. ASSESSMENT AND PLAN: Chronic diarrhea. CT scan now showing pancolitis. Previous CT suggesting possible colitis on the left side as well as diverticulitis at that time. The patient was treated with antibiotics. Agree with checking stool studies, especially to rule out Clostridium difficile at this time with recent history. The patient does have an elevated white count and fever at this time as well. He is on Cipro and Flagyl. If stool studies are negative, may need to consider proceeding with a colonoscopy for further evaluation. The patient denies any blood in his stools. Also, consider the possibility of ischemic colitis, although the patient now has a pancolitis. Also, consider inflammatory bowel disease, but I suspect these are both less likely. We will continue to follow the patient closely. Thank you for allowing me to participate in his care. ��������������������������������������������� <ELECTRONICALLY SIGNED> ���������������������������������������� By: Raul Campuzano MD ��������������������������������������������� 10/27/18 1048 1201 1539 Raul Campuzano MD /nt
--- NOTE | 2018-10-27 11:35 | NUR ---
VSS VITAL SIGNS STABLE T MAX TODAY 98.8. LUNGS DIMINISHED AND CLEAR O2 SAT RA IS 99%. NO STOOLS TODAY. PAIN MANAGEMENT MODIFIED BY MD TODAY, BETTER PAIN CONTROL. PT SHIFTING SELF IN BED. WILL CONTINUE TO CARE FOR PT PER PLAN OF CARE
[2018-10-27 13:19] LABS: % SATURATION 5 % (20-39); IRON 9 ug/dL (65-175); TIBC 167 ug/dL (250-450)
[2018-10-27 13:46] LABS: FOLIC ACID 10.7 ng/mL (8.6-58.9); TSH 1.018 uIU/mL (0.358-3.740)
[2018-10-27 15:02] VITALS: BP 128/61
[2018-10-27 19:15] VITALS: BP 130/57; BP 130/67
--- NOTE | 2018-10-28 02:44 | NUR ---
ASSUMED CARE OF PT @1900 PT ASSESSED AT START OF SHIFT WITH C/O OF PAIN IN LOWER BACK AND BUTTOCKS. PT VSS WITH LOW GRADE FEVER OF 99.1 PAIN MEDS GIVEN SEE EMAR WILL CONT TO WATCH TEMP. HAD 1 LOOSE STOOL THIS EVENING. BARRIER CREAM APPLIED ON BUTTOCK DUE TO REDNESS PT REPOSITIONED FOR COMFORT AND TURNS HIMSELF TO. IV INTACT IN LFT FOREARM AND FLUIDS, ABX INFUSING. PT IN ISOLATION FOR POSITIVE C DIFF. PT BED BOUND AND NEEDS SET UP WITH FOOD. CALL LIGHT WITHIN REACH AND WILL CONT WITH POC TILL EOS.
[2018-10-28 03:20] VITALS: BP 126/69
[2018-10-28 06:10] LABS: HEMATOCRIT 29.8 % (42.0-52.0); HEMOGLOBIN 9.6 gm/dL (14.0-18.0); MCH 27.4 pg (26.0-34.0); MCHC 32.2 g/dL (28.0-37.0); MCV 85.3 fL (80.0-100.0); RBC 3.5 mil/uL (4.50-6.00); RDW 14.9 % (10.5-14.5); WBC 6.9 thou/uL (4.0-11.0)
[2018-10-28 06:38] LABS: CALCIUM 8.3 mg/dL (8.5-10.1); CREATININE 0.5 mg/dL (0.7-1.3); MAGNESIUM 1.7 mg/dL (1.8-2.4); POTASSIUM 3.7 mmol/L (3.5-5.1)
[2018-10-28 07:25] VITALS: BP 129/67
--- NOTE | 2018-10-28 09:42 | NUR ---
PT RESTING IN BED. NO PAIN AT PRESENT. WAS GIVEN PRN AND SCED PAIN MEDS EARLIER. LUNGS CTA NO COUGH NO RESP DISTRESS. BS'S XS 4. HAS PATHAK CATH TO D/D WITH CLEAR YELLOW URINE IN PATHAK BAG. HAD LOOSE STOOL XS 1 ON THE SHIFT AT THIS TIME. DR FREEMAN HERE AND CHANGED ORDERS SEE MAR. PT IS PLEASANT AND COOPERATIVE WITH CARE.
--- NOTE | 2018-10-28 11:12 | NUR ---
WOUND CARE CONSULT; MILITARY EQUIPMENT SPECIALIST ASSESSMENT; ESCORIATED AREAS RE; INCONTINENCE AND FRICTION. ANGRY RED TO SACRUM. HEEL AREAS ARE DRY AND INTACT. RECOMMENDATION; 1-LOW AIR LOSS PUMP 2-ZGUARD TO SACRUM 3-PRAFO BOOTS BILATERALLY
[2018-10-28 15:31] VITALS: BP 123/65
--- NOTE | 2018-10-28 16:38 | NUR ---
INITIAL ASSESSMENT: SW reviewed chart and spoke with nursing and attending physician. Pt was admitted from home due to dirrhea/colitis. Pt is currently in isolation for c.diff. Pt tested positive for c.diff. Pt was recently on 5N and discharged him home with [facility] and private duty care. SW met with pt at bedside. Introduced role of SW. Pt is alert/orientated x 4. Pt reports he lives at home with family. Pt has a w/c at home. Pt confirms he is on service with [facility]. Pt states that he also has private duty to assist as needed. The private duty is through their friends, not through an agency. SW discussed post-acute needs. Pt is concerned about returning home with c.diff. Pt wants to make sure his c.diff is under control before leaving the hospital. SW discussed post-acute placement to continue abx and rehab prior to returning home. Pt asked about going back to [facility]. SW explained that he must have a new rehab dx. SW discussed alternated rehab/SNF options. Pt is not ready to discuss discharge plans yet. SW is following to assist as needed with discharge planning.
[2018-10-28 19:45] VITALS: BP 145/76
[2018-10-29 04:40] VITALS: BP 130/68
--- NOTE | 2018-10-29 05:13 | NUR ---
Assumed pt care at 1900. Pt is A/OX4,VSS. C/o back pain medicated per EMAR with partial relief reported. Pt declines to be repositioned every 2 hours. Incontinent of BM,loose. Hollingsworth in place draining yellow urine. Special contact isolation maintained. Fall precautions in place,calls approp.
[2018-10-29 06:25] LABS: CALCIUM 8.7 mg/dL (8.5-10.1); CREATININE 0.4 mg/dL (0.7-1.3)
[2018-10-29 08:06] VITALS: BP 118/64
--- NOTE | 2018-10-29 13:33 | NUR ---
PT A&OX4. NON AMBULATORY. IV INTACT IN L FA. PATHAK INTACT. INCONT OF BOWEL. REMAINS IN ISOLATION FOR C DIFF THOUGH HAS NOT HAD STOOL TODAY. IV INTACT IN L FA. RECEIVING ANTIBIOTICS IV AND PO. C/O BACK AND LEG PAIN TOLERATING PO PAIN MEDS. WILL CONT POC.
--- NOTE | 2018-10-29 14:25 | NUR ---
Received dietary consult, pt still with questions on best diet to follow with cdiff diarrhea. Provided information on utilizing live active cultures in yogurt, and limited fiber, low sugars right now until symptoms subside. also taking a probiotic. Education materials left with RD name/number for for further questions after discharge
[2018-10-29 16:04] VITALS: BP 135/74
[2018-10-30 03:50] VITALS: BP 130/70
--- NOTE | 2018-10-30 05:31 | NUR ---
Assumed pt care at 1900. A/OX4,VSS. C/o pain to BLE/back, medicated per EMAR with partial relief reported. Hollingsworth patent draining yellow urine. Had a small BM,incontinent. Zguard applied to buttocks;healing. Redness noted on groin,interdry cloth applied. On special contact isolation. Refused to wear the PRAFO boots,encouraged to elevate on a pillow. Fall precautions in place,will continue to monitor pt.
--- NOTE | 2018-10-30 05:50 | NUR ---
PATIENT WAS TURNING SELF WITH SOME STAFF ASSISTANCE. UPON REPOSITIONING AT 0350 A RED, BLANCHABLE SPOT WAS DISCOVERED ON UPPER RIGHT BUTTOCK. PT EDUCATED ON IMPORTANCE OF REPOSITIONING. PT EXPRESSED COMPLIANCE BY TURNING SELF 2 HRS LATER. PT ALSO HAS FUNGAL APPEARANCE ON GROIN AREA. Z GUARD REQUESTED FROM WOUND CARE
[2018-10-30 05:52] LABS: HEMATOCRIT 33.6 % (42.0-52.0); HEMOGLOBIN 10.7 gm/dL (14.0-18.0); MCH 26.8 pg (26.0-34.0); MCHC 31.8 g/dL (28.0-37.0); MCV 84.3 fL (80.0-100.0); RBC 3.99 mil/uL (4.50-6.00); RDW 14.7 % (10.5-14.5); WBC 6.7 thou/uL (4.0-11.0)
[2018-10-30 06:04] LABS: CALCIUM 8.7 mg/dL (8.5-10.1); CREATININE 0.5 mg/dL (0.7-1.3); POTASSIUM 3.8 mmol/L (3.5-5.1)
--- NOTE | 2018-10-30 09:54 | NUR ---
WOUND CARE FOLLOW UP; THE SACRAL WOUNDS HAVE SHOWN REMARKABLE HEALING USING ZGUARD AND OFFLOADING. RECOMMENDATION; CONTINUE ZGUARD. DISCUSSSED WITH LAURA
[2018-10-30 15:35] VITALS: BP 126/82
--- NOTE | 2018-10-30 18:32 | NUR ---
Assumed patient care at 0715. Patient continues to complain of pain that ranges from a level five to a level nine. He has been given Hydrocodone 10/325mg po as well as Fentanyl 50mg/mL IV push (both x's two during this shift). Patient has been afraid to consume his meals because he has had diarrhea x's 4. He has been educated about the importance of adequate food et fluid intake. Diarrhea has been more formed; there is minimal odor. Vital signs have been stable, BS x's 4, ABD soft et non-tender. Fabi care et treatments have been completed to reddened areas on buttocks et in groin area as ordered. Will continue to monitor.
[2018-10-30 19:25] VITALS: BP 119/70
[2018-10-31 04:12] VITALS: BP 118/71
--- NOTE | 2018-10-31 05:44 | NUR ---
PATIENT CONTINUES TO EXPERIENCE CHRONIC BLE AND BACK PAIN. PATIENT VOICES "CONTROL WITH SWITCHING FENTANYL AND HYDROCODONE" AND THIS HAS BEEN DONE IN 2 HOUR INTERVALS. PATIENT SAYS PAIN LEVEL CAME DOWN TO A 5 PROVING MANAGABLE WITH THIS PLAN. REPOSITIONING HAS BEEN ENCOURAGED. FALL PRECAUTIONS IN PLACE. WILL CONTINUE TO MONITOR PATIENT.
[2018-10-31 05:54] LABS: CALCIUM 8.8 mg/dL (8.5-10.1); CREATININE 0.5 mg/dL (0.7-1.3); POTASSIUM 3.9 mmol/L (3.5-5.1)
[2018-10-31 08:19] VITALS: BP 116/62
--- NOTE | 2018-10-31 10:06 | NUR ---
PT RESTING IN BED ALERT XS 4 GAVE PRN PAIN IV MED WANTS PO SOON HE CAN HAVE. TOOK AM MEDS, AND ATE BREAKFAST. DR BRISCOE HERE TO SEE HIM THIS AM.
[2018-10-31] MEDS ORDERED: FIRVANQ50 MG/1 ML PO (14:30)
[2018-10-31] MEDS ORDERED: PROBIOTIC1 EAC1 PO (14:30)
[2018-10-31] MEDS ORDERED: LIDOCAINE 2%2 %/5 GM TOP (14:30)
[2018-10-31] MEDS ORDERED: IPRAT-ALBUT 0.5-3 ML INH (14:30)
[2018-10-31] MEDS ORDERED: HYDROCODON-ACE1 EAC5 PO (14:30)
[2018-10-31] MEDS ORDERED: MS CONTIN15 MG PO (14:30)
[2018-10-31] MEDS ORDERED: ACETAMINOPHEN325 M1 PO (14:30)
[2018-10-31] MEDS ORDERED: FIRVANQ25 MG/1 ML PO (14:34)
--- NOTE | 2018-10-31 15:31 | NUR ---
CARE TEAM INDIATED THAT PT IS MEDICALLY STABLE TO DC THIS DAY. PHYSICIAN INDICATED THAT PT HAD EXPRESSED CONCERN ABOUT RETURNING HOME WITH CDIFF AND THEIR BEING SMALL CHILDREN THERE. HE INDICATED HE HAD SPOKE WITH PT ABOUT GOING SKILLED. CM MET WITH PT AT BEDSIDE PROVIDED SNF LIST AND DISCUSSED DC OPTIONS. PT INDICATED HE DIDN'T FEEL HE HAD ENOUGH WARNING ABOUT DISCHARGE. BUT HE INDICATED HE WOULD DISCUSS IT WITH HIS FAMILY AND CM WOULD FOLLOW UP. NURSE CM FOLLOWED UP AND THEY ASKED THAT REFERRALS BE SENT TO [facility], [facility], AND [facility]. REFERRALS SENT. PT'S FAMILY IS TO TOUR FACILITIES. CM TO FOLLOW INDICATED WITH DC PLANNING.
--- NOTE | 2018-10-31 16:17 | NUR ---
FAXED REFERRAL TO [facility] SPOKE WITH BRUNILDA IN ADM SHE RECEIVED REFERRAL AND WILL REVIEW. SHE IS GOING TO SPEAK WITH JUAN CARLOS RN/MEAGHAN REGARDING INSURANCE SKILLED DAYS AND CO PAY. FAXED REFERRAL TO [facility] SPOKE WITH YOKASTA IN ADM SHE RECEIVED REFERRAL AND WILL REVIEW. DCP TO FOLLOW.
--- NOTE | 2018-10-31 16:19 | NUR ---
FAXED REFERRAL TO [facility] SPOKE WITH DIANA IN ADM SHE RECEIVED REFERRAL AND IS HAVING HER DON REVIEW. DCP TO FOLLOW.
[2018-10-31 17:06] VITALS: BP 128/63
[2018-10-31 19:41] VITALS: BP 110/65
--- NOTE | 2018-11-01 02:48 | NUR ---
ASSESSMENT COMPLETD.PT C/O PAIN,MANAGED WITH MED.PATHAK CATH TO DD.PT CONT ON ISOLATION FOR CDIFF,NO STOOL NOTED SO FAR THIS SHIFT.PT ABLE TO REPOSITION SELF IN BED,CALLS OUT IF HE NEEDS HELP.PT RESTING ON HIS BED AT THIS TIME.FALL PRECAUTIONS IN PLACE,CALL LIGHT WITHIN REACH.
[2018-11-01 07:10] VITALS: BP 112/70
[2018-11-01 08:08] VITALS: BP 112/70
--- NOTE | 2018-11-01 14:10 | NUR ---
PT DISCHARGING TODAY TO [facility] WITH [facility] FAXED DC ORDERS/SUMMARY TO [facility] SPOKE WITH BRUNILDA IN ADM SHE RECEIVED DC ORDERS AND ARRANGED TRANSPORTATION FOR 1600 TODAY. NOTIFIED PT'S FAMILY (JASPAL) OF DC AND TIME OF TRANSPORT. UNIT NOTIFIED AND CHART COPY PER US. RN TO CALL REPORT TO [phone].
--- NOTE | 2018-11-01 14:18 | NUR ---
PT DISCHARGING TODAY TO [facility] FAXED DC ORDERS/SUMMARY TO FACILITY SPOKE WITH BRUNILDA IN ADM SHE RECEIVED DC ORDERS AND ARRANGED TRANSPORTATION BY [facility] FOR 1600 TODAY. NOTIFIED PT'S FAMILY (JASPAL) OF DC AND TIME OF TRANSPORT AND SHE WILL MEET PT AT FACILITY. UNIT NOTIFIED AND CHART COPY PER US. RN TO CALL REPORT TO [phone].
--- NOTE | 2018-11-01 15:50 | NUR ---
PT DISCHARGING TO [facility]. IV ACSESS DCD REPORT GIVEN TO FACILITY. ALL BELONGINGS PACKED AND SENT WITH PATIENT. PT GIVEN PRN PAIN MED BEFORE DISCHARGE.
--- NOTE | 2018-11-01 16:39 | NUR ---
PT DISCHARGED AT THIS TIME. IV ACSESS WAS DCD, PT HAS PATHAK CATH THAT HE DID NOT REMOVED. ALL BELONGINGS PACKED AND SENT WITH PATIENT. REPORT WAS CALLED TO FACILITY HE WAS GOING. PT LEFT ON [facility]OT[facility]. NO PAIN OR RESP DISTRESS AT DISCHARGE.
== END 2018-11-01 16:48 | DRG 871 ==
LOC: ER 01:43 → 4E 04:50 → EROBS 04:50 → 4E 05:31
PROVIDERS: Emergency Medicine; Nurse Practitioner; ADMIT Internal Medicine
DX: A41.9 Sepsis, unspecified organism (principal); E43 Unspecified severe protein-calorie malnutrition; N39.0 Urinary tract infection, site not specified; K51.00 Ulcerative (chronic) pancolitis without complications; A04.72 Enterocolitis due to Clostridium difficile, not specified as recurrent; D62 Acute posthemorrhagic anemia; G89.4 Chronic pain syndrome; M54.9 Dorsalgia, unspecified; I10 Essential (primary) hypertension; K59.00 Constipation, unspecified; G35 Multiple sclerosis; N31.9 Neuromuscular dysfunction of bladder, unspecified; E87.6 Hypokalemia; E83.42 Hypomagnesemia; N40.0 Benign prostatic hyperplasia without lower urinary tract symptoms; I48.0 Paroxysmal atrial fibrillation; F41.1 Generalized anxiety disorder; Z68.21 Body mass index [BMI] 21.0-21.9, adult; Z79.899 Other long term (current) drug therapy
CPT/HCPCS: 10084

== ENCOUNTER 2018-11-19 11:29 | Emergency (ER) | payer OTHER ==
[~2018-11-19] VITALS: Ht 185.4 cm; Wt 67.1 kg
[~2018-11-19 11:29] MED LIST changes: +FIRVANQ25 MG/1 ML PO; +FIRVANQ50 MG/1 ML PO; +IPRAT-ALBUT 0.5-3 ML INH; +LIDOCAINE 2%2 %/5 GM TOP
[2018-11-19 12:10] LABS: ABSOLUTE NEUTROPHILS 6.4 thou/uL (1.4-8.2); BASOPHILS 0.6 % (0.0-2.0); EOSINOPHILS 1.1 % (0.0-3.0); HEMOGLOBIN 10.8 gm/dL (14.0-18.0); LYMPHOCYTES 13.1 % (24.0-44.0); MCHC 32.6 g/dL (28.0-37.0); MCV 82.8 fL (80.0-100.0); MONOCYTES 6.4 % (1.0-8.0); PLATELET COUNT 230 thou/uL (150-400); POLYS 78.8 % (36.0-66.0); RBC 3.99 mil/uL (4.50-6.00); RDW 15.9 % (10.5-14.5); WBC 8.1 thou/uL (4.0-11.0)
[2018-11-19 12:13] LABS: CALCIUM 9.3 mg/dL (8.5-10.1); CREATININE 0.5 mg/dL (0.7-1.3); POTASSIUM 4.4 mmol/L (3.5-5.1)
[2018-11-19 12:19] LABS: PROTIME 10.5 Seconds (9.3-11.4)
[2018-11-19 17:20] VITALS: BP 131/65
== END 2018-11-19 17:31 ==
LOC: ER 11:29
PROVIDERS: Student in an Organized Health Care Education/Training Program
DX: T83.098A Other mechanical complication of other urinary catheter, initial encounter (principal); N36.8 Other specified disorders of urethra; I10 Essential (primary) hypertension; I48.91 Unspecified atrial fibrillation; M54.9 Dorsalgia, unspecified; G89.4 Chronic pain syndrome; Z79.01 Long term (current) use of anticoagulants; Y84.8 Other medical procedures as the cause of abnormal reaction of the patient, or of later complication, without mention of misadventure at the time of the procedure; Y92.89 Other specified places as the place of occurrence of the external cause

== ENCOUNTER 2019-02-10 05:28 | Emergency (ER) | payer OTHER ==
[~2019-02-10] VITALS: Ht 182.9 cm; Wt 81.7 kg
[2019-02-10] MEDS ORDERED: ASPERCREME LIDO73 ML TOP (05:32)
[2019-02-10] MEDS ORDERED: ATIVAN0.5 M1 PO ×2 (05:33)
[2019-02-10] MEDS ORDERED: BISACODYL10 MG RECTAL (05:34)
[2019-02-10] MEDS ORDERED: BOUDREAUXS28 GM TOP (05:34)
[2019-02-10] MEDS ORDERED: DIOVAN160 MG PO (05:35)
[2019-02-10] MEDS ORDERED: COLACE100 MG PO (05:35)
[2019-02-10] MEDS ORDERED: FLOMAX0.4 MG PO (05:35)
[2019-02-10] MEDS ORDERED: ADVIL LIQUI-GE200 MG PO (05:37)
[2019-02-10] MEDS ORDERED: LYRICA 75 MG CA75 MG PO (05:38)
[2019-02-10] MEDS ORDERED: SUPER THERAVIT1 EACH PO (05:40)
[2019-02-10] MEDS ORDERED: OXYCODONE HCL E10 MG PO (05:43)
[2019-02-10] MEDS ORDERED: SENNO8.6 MG PO (05:43)
[2019-02-10] MEDS ORDERED: VITAMIN C250 M1 PO (05:45)
[2019-02-10] MEDS ORDERED: ACETAMINOPHEN PO (05:45)
[2019-02-10] MEDS ORDERED: ZOFRAN4 MG PO (05:46)
[2019-02-10] MEDS ORDERED: VITAMIN C250 MG PO (05:50)
[2019-02-10] MEDS ORDERED: ONDANSETRON HCL4 M2 PO (05:51)
[2019-02-10 06:11] LABS: ABSOLUTE NEUTROPHILS 8.4 thou/uL (1.4-8.2); BASOPHILS 0.3 % (0.0-2.0); EOSINOPHILS 0.1 % (0.0-3.0); HEMATOCRIT 34.6 % (42.0-52.0); HEMOGLOBIN 10.9 gm/dL (14.0-18.0); LYMPHOCYTES 10.4 % (24.0-44.0); MCH 23.2 pg (26.0-34.0); MCHC 31.4 g/dL (28.0-37.0); MCV 73.7 fL (80.0-100.0); MONOCYTES 5.3 % (1.0-8.0); PLATELET COUNT 221 thou/uL (150-400); POLYS 83.9 % (36.0-66.0); RBC 4.69 mil/uL (4.50-6.00); RDW 17.1 % (10.5-14.5); WBC 10.6 thou/uL (4.0-11.0)
[2019-02-10 06:20] LABS: ANION GAP 9 mmol/L (7-16); BUN 13 mg/dL (7-18); CALCIUM 9.9 mg/dL (8.5-10.1); CHLORIDE 100 mmol/L (98-107); CO2 32 mmol/L (21-32); CREATININE 0.6 mg/dL (0.7-1.3); GLUCOSE 112 mg/dL (74-106); POTASSIUM 3.7 mmol/L (3.5-5.1); SODIUM 141 mmol/L (136-145)
[2019-02-10 06:29] LABS: TROPONIN-I <0.06 ng/mL (<0.06)
[2019-02-10 10:02] LABS: ANISOCYTOSIS 1+; HYPOCHROMASIA 1+; MICROCYTES 1+
[2019-02-10] MEDS ORDERED: MIRALAX119 GM PO (10:19)
[2019-02-10] MEDS ORDERED: DULCOLAX10 MG RECTAL (10:19)
[2019-02-10 11:20] VITALS: BP 147/72
--- NOTE | 2019-02-11 09:55 | EKG ---
[address] [place] [address] ELECTROCARDIOGRAM REPORT Name: ERICK WOODS Room #: DEP [id number] Admission: 02/10/19 Attend Phys: Discharge: 02/10/19 Date of : 53 Report #: [id number] THIS REPORT FOR: //name// [facility] ED Test Date: 2019-02-10 Test Time: 06:07:59 Pat Name: ERICK WOODS Department: Room: Gender: M Audit Spec: YANA : 1955 Requested By: Bob Cartagena Order Number: [id number] MD: Dimas Ruth Measurements Intervals [place] Rate: 75 P: 77 NH: 192 QRS: 49 QRSD: 97 T: 26 QT: 383 QTc: 428 Interpretive Statements Sinus rhythm Baseline artifact No gross abnormalities Compared to ECG 09/22/2018 07:09:30 No significant change was found Electronically Signed On 02-11-2019 9:54:51 MOLD SANDER by Dimas Ruth [email or web address] <ELECTRONICALLY SIGNED> By: Dimas Ruth MD, [facility] 02/11/19 [phone] Dimas Ruth MD, FACC /EPI
== END 2019-02-10 11:25 | disposition home or self-care (01) ==
LOC: ER 05:28
PROVIDERS: Emergency Medicine
DX: K59.00 Constipation, unspecified (principal); I10 Essential (primary) hypertension; I48.20 Chronic atrial fibrillation, unspecified; M54.9 Dorsalgia, unspecified; G89.29 Other chronic pain

== ENCOUNTER 2020-04-16 15:18 | Inpatient (IN) | payer OTHER ==
[~2020-04-16] VITALS: Ht 185.4 cm; Wt 72.6 kg
[~2020-04-16 15:18] MED LIST changes: +ACETAMINOPHEN PO; +ADVIL LIQUI-GE200 MG PO; +ASPERCREME LIDO73 ML TOP; +ATIVAN0.5 M1 PO; +BISACODYL10 MG RECTAL; +BOUDREAUXS28 GM TOP; +COLACE100 MG PO; +DIOVAN160 MG PO; +DULCOLAX10 MG RECTAL; +LYRICA 75 MG CA75 MG PO; +MIRALAX119 GM PO; +ONDANSETRON HCL4 M2 PO; +OXYCODONE HCL E10 MG PO; +SENNO8.6 MG PO; +SUPER THERAVIT1 EACH PO; +VITAMIN C250 M1 PO; +VITAMIN C250 MG PO; +ZOFRAN4 MG PO
[2020-04-16 18:00] VITALS: BP 113/70
--- NOTE | 2020-04-16 19:27 | NUR ---
Pt transferred from [facility]. Pt settled in the room. Wound pictures taken. Wound care team consulted. Hollingsworth catheter in place. Blood tinged urine. Report given to genna SANCHEZ.
[2020-04-16 20:05] LABS: BASOPHILS 0.3 % (0.0-2.0); EOSINOPHILS 2.6 % (0.0-3.0); HEMATOCRIT 27.5 % (42.0-52.0); HEMOGLOBIN 9.1 gm/dL (14.0-18.0); LYMPHOCYTES 14.6 % (24.0-44.0); MCHC 32.9 g/dL (28.0-37.0); MCV 73.1 fL (80.0-100.0); MONOCYTES 9.4 % (1.0-8.0); PLATELET COUNT 304 thou/uL (150-400); POLYS 73.1 % (36.0-66.0); RBC 3.77 mil/uL (4.50-6.00); WBC 8.1 thou/uL (4.0-11.0)
[2020-04-16 20:12] LABS: CALCIUM 8.6 mg/dL (8.5-10.1); CREATININE 0.4 mg/dL (0.7-1.3); POTASSIUM 3.9 mmol/L (3.5-5.1)
[2020-04-16 22:10] VITALS: BP 114/63
--- NOTE | 2020-04-17 04:08 | NUR ---
PT'S ADMISSION HX,EDUCATION AND ASSESSMENT COMPLETED.PT C/O PAIN,MANAGED WITH MED.UROLOGIST HERE TO SEE PT,MED ORDERS NOTED AND CARRIED OUT.PT NPO,ALL MEDS VIA PEG TUBE.PT HAS MULTIPLE WOUNDS TO HIS BODY.PT LIKES TO LIE ON HIS L SIDE.SOFT TOUCH CALL LIGHT IN PLACE.LOW AIR LOSS MATTRESS IN PLACE.PT'S NOTIFIED OF PT'S ADMISSION.PT'S CODE AND UNIT'S NUMBER GIVEN TO HER PER PT'S REQUEST.
[2020-04-17 04:34] VITALS: BP 99/56
[2020-04-17 08:08] VITALS: BP 118/63
[2020-04-17 17:07] VITALS: BP 93/56
--- NOTE | 2020-04-17 18:30 | NUR ---
Assumed pt care this am, VS stable. PEG tube present, tube feeding started, Osmolite 1.5 runnig at goal rate of 70. All oral medication are crished and given via peg tube. Pain is not managed, minimal decrease is noted, MD aware. at the bed side. Pt refused to be repositions and only wants to stay on his left side. Refused for woulds to be reassessed since this would require movement. Kept NPO. Boots are on, FC in place draining cloudy yellow urine. Left arm edema is noted and rigid. Dr. Rangel consult called, awaiting visit. POC followed.
[2020-04-17 20:23] VITALS: BP 91/57
--- NOTE | 2020-04-17 21:48 | HC ---
[facility] [place] [address] CONSULTATION Name: ERICK WOODS Room #: 442-P ADM IN M.R.#: [id number] Admission: 04/16/20 Attend Phys: Isaac Curry MD Discharge: Date of : 53 Report #: [id number] THIS REPORT FOR: cc: FAM - Family physician unknown FAM - Family physician unknown Luis Burns MD ~ DATE OF SERVICE: 04/17/2020 INFECTIOUS DISEASE CONSULTATION REASON FOR CONSULTATION: I was asked to evaluate concerning Staph aureus bacteremia. HISTORY OF PRESENT ILLNESS: The patient is a 64-year-old with advanced multiple sclerosis. He has been on hospice. He has an indwelling Hollingsworth catheter and a PEG tube. He gets his Hollingsworth catheter changed every 4 weeks. Catheter has been placed for urinary retention. Previously with a catheter changed, he did have a balloon inflated within the prostatic urethra. He has had issues also with catheter obstruction. Most recently, he had a Hollingsworth exchanged and subsequently noticed gross hematuria. He has had increased pain in his low back. No definite fever or chills. He has had increased weakness. He has noticed increased joint pain as well. No cough or sputum production. PEG tube has been functioning. No diarrhea. Has pelvic pressure wounds. REVIEW OF SYSTEMS: A 14-point review of system was negative other than what is described above. He did present to the Emergency Room at [facility] where blood cultures were drawn. These are now growing Staph aureus 1 of 2 cultures obtained. I am awaiting urine culture results. ALLERGIES: None known. MEDICATIONS: As noted on his MAR including vancomycin and ceftriaxone. PAST MEDICAL HISTORY: Diverticulitis, neurogenic bladder, atrial fibrillation, multiple sclerosis, urinary retention, pelvic decubiti, chronic back pain and PEG tube placement. FAMILY HISTORY: Negative for MS. SOCIAL HISTORY: Nonsmoker, no significant alcohol intake, has been living in a correction for last several years. PHYSICAL EXAMINATION: VITAL SIGNS: He is afebrile and hemodynamically stable. GENERAL: He is alert and cooperative. He had advanced MS noting quadriplegia [facility] [address] [place] [address] CONSULTATION Name: ERICK WOODS [place] Room #: 442-P ADM IN M.R.#: [id number] Admission: 04/16/20 Attend Phys: Isaac Curry MD Discharge: Date of : 53 Report #: [id number] with inability to move his left arm. He has had generalized weakness in his right arm and his lower extremities. SKIN: With stage 3 pelvic decubiti involving his ischium and his sacrum. No palpable adenopathy, malnourished. EYES: Without scleral icterus. MOUTH: Without mucositis. NECK: Increased muscle tone throughout. LUNGS: Clear. HEART: Regular, without murmur. ABDOMEN: Soft, without mass. He had a PEG tube without drainage. He has an indwelling Hollingsworth catheter with no genital lesions or masses. RECTAL: Not performed. BACK: Nontender to percussion. EXTREMITIES: Without clubbing, cyanosis or edema. NEUROLOGIC: Cranial nerves were intact, but had generalized weakness throughout. PSYCHIATRIC: Mood is without anxiety or depression. LABORATORY STUDIES: Reviewed, noting creatinine 0.4. Hemoglobin is 9.1, white count 8.1 and platelet 304,000. Chest x-ray, abdominal x-ray reviewed. Blood cultures from outside laboratory reviewed. IMPRESSION: 1. A 64-year-old with advanced multiple sclerosis on hospice care presents now with Staphylococcus aureus bacteremia, kidney source is yet to be determined. Would consider urinary tract due to the issues he has had with catheter change. Staph aureus; however, is not a typical organism identified in the urine. We will need to await urine culture results. 2. Paroxysmal atrial fibrillation. 3. Generalized anxiety disorder, under control. 4. Chronic back pain. 5. Anemia. RECOMMENDATIONS: We will continue broad antibiotic coverage including vancomycin, ceftriaxone, pending culture results of blood and urine. Await repeat blood cultures drawn at [facility]. We will consider further workup depending upon urine culture results and overall plan of care since unclear if he is going to remain on hospice or not. <ELECTRONICALLY SIGNED> By: Luis Burns MD 04/17/202147 34 53 Luis Burns MD /nt
[2020-04-18 04:31] VITALS: BP 108/46
--- NOTE | 2020-04-18 05:43 | NUR ---
PT ALERT/FORGETFUL AND CONFUSED.PT WAS REORIENTED A COUPLE OF TIMES THIS SHIFT TO HIS SURROUNDING WHENEVER HE WAKES UP FROM SLEEP.PT HAS BEEN REF REPOSITIONING DUE TO PAIN.PT EDUCATED ON THE NEED FOR HIM TO BE MOVED AROUND HE VOICED UNDERSTANDING BUT STILL REF.PT WITH MULTIPLE WOUNDS TO HIS BODY,PT REF DRSG CHANGES.TF INFUSING VIA PEG TUBE,PT TOLERATING WELL.PATHAK CATH TO DD WITH CLOUDY YELLOW URINE IN THE BAG.PRAFO BOOTS AND LOW AIR LOSS MATTRESS IN PLACE.
[2020-04-18 08:11] VITALS: BP 93/55
[2020-04-18 15:58] VITALS: BP 112/66
--- NOTE | 2020-04-18 18:41 | NUR ---
Assumed pt care this am, vs stable bp in the am was on the low side held some of the am htn medications. Was able to do wound care and dressing change for some of the wounds in the am, pt refused to turn every 2 hours d/t pain. Pain is not managed even with the scheduled pain meds. All meds are oral that need to be crushed and given via peg tube. Ostmolite 1.5 running at goal rate of 70 in the peg tube pt is NPO. Dr. Rangel called back and mentioned he will see the pt tomorrow, at the bedside and was advised of this update. POC followed ,poor progession towards goals are noted. Though pt is aware of the goals that need to be met but is hindered d/t rob nand contractures. Left arm is +2 edema. Endorsed to the night nurse.
[2020-04-18 19:12] VITALS: BP 117/63
[2020-04-19 03:13] VITALS: BP 130/75
--- NOTE | 2020-04-19 07:54 | NUR ---
PT LYING IN BED. PATHAK IN PLACE. SCHEDULED OXY PROVIDING PAIN RELIEF. REFUSED TURNS ENTIRE SHIFT. FREQUENT OBSERVATION.
[2020-04-19 07:55] VITALS: BP 117/75; BP 122/70
--- NOTE | 2020-04-19 11:47 | NUR ---
Continue tube feed as ordered. Once IVF are discontinued, start water flushes of 220 ml every 4 hr
--- NOTE | 2020-04-19 13:26 | NUR ---
FAXED CLINICAL UPDATE TO [facility] RECEIVED CONFIRMATION AND LEFT MSG WITH YUSEF IN ADM.
--- NOTE | 2020-04-19 14:42 | NUR ---
Case opened to follow for dc planning. Case discussed in unit rounds. Silk Soaker visited with the pt at bedside and his dtr/dpoa Crystal via phone. A copy of the pt's dpoa for hc document has been placed on the chart along with his hospice revocation document from [facility]. The pt is a ltc resident at [facility] for about 1.5 years. He has enstage MS and is bed bound and contracted. He has a peg tube and wound care. He has been on services with [facility] and has a DNR order in place. He did wish to revoke hospice services for treatment of uti and possible placement of a suprapubic cath. He has been experiencing trauma and hematuria with monthly marques cath changes which promoted his admission. He has had both covid vaccines and has never tested positive. He will need a negative covid test for readmission to [facility] He is a&ox4 and indicates that hospice has been a good emotional support to him. He enjoyed visiting with Dr. Long from Palliative care earlier this morning regarding his care goals. He is anticipating dc back to ltc with readmission to hospice services. Pt's dtr is supportive of the above and indicates that the hospice services have been a great support to family as well as they are not allowed to visit pt due to the pandemic. They are supportive of him getting treatment for infection and the hematuria. DC certified financial planner to fax updated to [facility] admissions. They are holding his bed and can accept for readmission when ready pending a covid test. Nursing notified and they will put in the order. A copy of the revocation form was given to the cm/JACOB adamson. Will follow.
[2020-04-19 15:19] VITALS: BP 152/86
--- NOTE | 2020-04-19 16:16 | NUR ---
Received awake on bed. Due medications given as prescribed, crushed and given thru PEG tube. On MS, not on telemetry; no complains and signs of chest pain, crushing sensation and heaviness; No Code. On room air. Vital signs stable. On nothing per orem. On Osmolite at 75cc/hr(goal rate) thru PEG tube; leur lock syringe obtained from GI nurse for medication administration; on H20 flushes. On blood sugar monitoring, taken and recorded accordingly every 6 hrs[address] in place, draining well; output measured and recorded accordingly- plans for suprapubic catheter- pt seen and examined by Urology PA today- not to be done until infection resolves. With NS at 75cc/hr, infusing well at R FA; on IV antibiotics. With prafo boots; on low airloss mattress. Pt refusing turns, pt seen every hour and offered turns but refused despite explanation of the importance of turning; pt claiming this afternoon that he wasn't turned since yesterday- informed patient re: refusal and he said he can't remember it. With multiple wounds- refusing to be changed as well. Complained of pain, scheduled pain meds given as prescribed. Pt's daughter called this morning, update given. Pt seen and examined by annie MCKEON swab to be done for possible discharge back to his facility. To continue monitoring patient.
[2020-04-19 19:32] VITALS: BP 123/75
[2020-04-20 04:09] VITALS: BP 109/71
--- NOTE | 2020-04-20 05:34 | NUR ---
Assumed pt care at 1900. A/OX4, VSS. C/o generalized pain allover, scheduled per EMAR with partial relief reported.Pt has refused to be repositioned all night only turned side to side when cleaning him up after BM this morning. Hollingsworth patent to DD with yellow cloudy urine. PEG tube in place with Osmolite infusing at 70ml/hr w/o any problems,IVF infusing via Right hand. Refused wound care this shift. Resting quietly w/o any distress noted,will continue to monitor pt.
[2020-04-20 08:39] VITALS: BP 113/68
--- NOTE | 2020-04-20 11:36 | NUR ---
ASSUMED PT CARE THIS AM. PT VSS, A&OX4. BP MEDS HELD THIS AM DUE TO BP OF 113/68. PATIENT ENCOURAGED TO REPOSITION, BUT DENYING WHEN ASKED FREQUENTLY. DENIED WOUND DRESSING CHANGES INITIALLY, BUT ALLOWED WHEN ASKED A SECOND TIME. PATHAK IN PLACE DRAINING WELL. PEG TUBE FEEDING WITH OSMOLYTE AT 70/HR. HEEL PROTECTOR BOOTS ON. FALL PRECAUTIONS IN PLACE. IV PATENT, FLUIDS INFUSING. ON ROOM AIR.
--- NOTE | 2020-04-20 15:03 | NUR ---
ON-GOING ASSESSMENT: CM REVIEWED CHART. ID IS ON THE CASE AND AWAITING CULTURES FOR FINAL RECS. CM SPOKE WITH ATTENDING WHO REPORTS PT MAY BE A POSSIBLE DISCHARGE BACK TO [facility] TOMORROW. CM FAXED UPDATED CLINICAL WELL NEGATIVE COVID TEST FROM 04/19 TO FACILITY AND NOTIFIED ADMISSIONS. CM ALSO SPOKE WITH PATIENTS TO UPDATE. CM WILL CONTINUE TO FOLLOW TO ASSIST NEEDED.
[2020-04-20 16:30] VITALS: BP 124/69
[2020-04-20 21:38] VITALS: BP 120/72
--- NOTE | 2020-04-21 08:53 | NUR ---
Note Given: Y Facility List Provided:Y Facility Andre: None chosen at this time Vaishali Zapata NP discussed BPCI with this pt 04/20/2020
--- NOTE | 2020-04-21 11:55 | NUR ---
ASSUMED PT CARE THIS AM. PT VSS, A&OX4. PT CALM AND COOPERATIVE WITH WOUND CARE AND WOUND PICTURES TO DAY, BUT IS REFUSING TO BE REPOSITIONED. PT LAYING ON LEFT SIDE AND ON HIS BACK, BUT REFUSING ALL OTHER REPOSITIONING. ABRASION NOTED ON THE BACK OF THE LEFT CALF, PICTURE TAKEN AND PLACED IN CHART. ABRASION ON LEFT HIP WELL DOCUMENTED AND PICTURE TAKEN. ALL WOUND CARE COMPLETED, PATIENT TOLERATED WELL. PT EDUCATED BY NURSE AND CARE ASSISTANT ABOUT IMPORTANCE OF REPOSITIONING, AND STAFF CONTINUOUSLY ATTEMPTING TO REPOSITION PATIENT. REPORTS GENERALIZED PAIN, PAIN DECREASED UIPON REASSESSMENT. IV PATENT, FLUIDS DISCONTINUED. RECEIVING FEEDING THROUGH PEG TUBE, OSMOLYTE AT 70ML/HR. NO RESIDUAL NOTED. NEW FEEDING HUNG. ON ROOM AIR, REMAINS NPO. FALL PRECAUTIONS IN PLACE, FREQUENT CHECKS BEING COMPLETED.
[2020-04-21 16:15] VITALS: BP 127/79
[2020-04-21 19:30] VITALS: BP 118/73
--- NOTE | 2020-04-21 19:41 | NUR ---
DR TALAVERA IS REQUESTING WOUND CULTURE RESULTS FROM [facility]. CALLED AND THE HOSPITALIST MEDICAL DIRECTOR STATED THAT MEDICAL RECORDS WAS NO LONGER THERE TODAY. WILL ENDORSE TO DAYSHIFT NURSE IN THE AM SO THAT THEY CAN GET THE MEDICAL RECORDS FOR PHYSCIAN.
[2020-04-22 07:24] VITALS: BP 116/68
--- NOTE | 2020-04-22 08:29 | TEE ---
[facility] [address] [address] TRANSESOPHAGEAL ECHOCARDIOGRAM Name: ERICK WOODS YANETH Room #: 446-P ADM IN M.R.#: [id number] Admission: 04/16/20 Attend Phys: Fredo Wells MD Discharge: Date of : 53 Report #: [id number] THIS REPORT FOR: cc: FAM - Family physician unknown FAM - Family physician unknown Dimas Ruth MD [facility] ~ APPROVED REPORT Study performed: 04/22/2020 07:41:52 EXAM: Comprehensive 2D, Doppler, and color-flow Echocardiogram Patient Location: Bedside Room #: 446 Status: routine BSA: 1.96 HR: 97 bpm BP: 118/73 mmHg Rhythm: NSR Other Information Study Quality: Adequate/not all measrements taken. Patient was impatinet Technically limited study due to lung interference/heavy breathing. Indications Staph. Hx: Afib, HTN. 2D Dimensions IVSd: 9.22 (7-11mm) LVOT Diam: 20.65 (18-24mm) LVDd: 43.04 mm PWd: 8.96 (7-11mm) LVDs: 31.10 (25-40mm) Aortic Root: 40.55 mm Aortic Valve AoV Peak Brent.: 1.36 m/s AO Peak Gr.: 7.36 mmHg LVOT Max P.19 mmHg LVOT Max V: 0.89 m/s ERICK Vmax: 2.20 cm2 Mitral Valve E/A Ratio: 0.9 [facility] [address] [place] [address] TRANSESOPHAGEAL ECHOCARDIOGRAM Name: ERICK WOODS YANETH Room #: 446-P ADM IN M.R.#: [id number] Admission: 04/16/20 Attend Phys: Bon Hollis Discharge: Date of : 53 Report #: [id number] MV Decel. Time: 301.59 ms MV E Max Brent.: 0.60 m/s MV A Brent.: 0.69 m/s MV PHT: 87.46 ms Pulmonary Valve PV Peak Brent.: 1.22 m/s PV Peak Gr.: 5.93 mmHg Tricuspid Valve TR Peak Brent.: 2.70 m/s TR Peak Gr.: 29.27 mmHg Left Ventricle The left ventricle is normal size. There is normal LV segmental wall motion. There is normal left ventricular wall thickness. Left ventricular systolic function is normal. LVEF is 55-60%. Mild diastolic dysfunction is present. Right Ventricle The right ventricle is normal size. The right ventricular systolic function is normal. Atria The left atrium size is normal. The right atrium size is normal. Aortic Valve Aortic valve is bicuspid, minimally sclerotic. No aortic regurgitation is present. There is no aortic valvular stenosis. Mitral Valve The mitral valve is normal in structure. Mild mitral regurgitation. Tricuspid Valve The tricuspid valve is normal in structure. Trace tricuspid regurgitation. Estimated PAP is 35mmHg Pulmonic Valve Pulmonic valve is not well visualized. Great Vessels Aortic root is mildly dilated (4.1cm). IVC is not well visualized. [facility] [address] [place] [address] TRANSESOPHAGEAL ECHOCARDIOGRAM Name: ERICK WOODS YANETH Room #: 446-P ADM IN M.R.#: [id number] Admission: 04/16/20 Attend Phys: Bon Hollis Discharge: Date of : 53 Report #: [id number] Pericardium There is no pericardial effusion. <Conclusion> Left ventricular systolic function is normal. There is normal LV segmental wall motion. LVEF is 55-60%. Mild diastolic dysfunction is present. Aortic valve is bicuspid, minimally sclerotic. No aortic regurgitation or stenosis The mitral valve is normal in structure. Mild mitral insufficiency Trace tricuspid regurgitation. Estimated pulmonary artery pressure of 35mmHg There is no pericardial effusion. <ELECTRONICALLY SIGNED> By: Dimas Ruth MD, FACC 04/22/20828 8 8 Dimas Ruth MD, FACC /INF
--- NOTE | 2020-04-22 08:48 | NUR ---
PRIMARY RN AND SPARE PERSON NATALY / HARLEY NOTIFIED REGARDING RESIDUAL AMOUNT. SPARE PERSON STATED TO CONTINUE TO RUN AND PRIMARY RN VERBALIZED SHE WOULD CONTINUE TO MONITOR LATER IN THIS SHIFT.
--- NOTE | 2020-04-22 09:25 | NUR ---
TUBE FEEDING PAUSED APPROXIMATELY AROUND 0905 THIS AM. PRIMARY RN NOTIFIED. WILL RECHECK RESIDUAL WITHIN NEXT HOUR APPROXIMATELY AROUND 1000.
[2020-04-22] MEDS ORDERED: MAGOX 400400 MG PER TUBE (11:29)
[2020-04-22] MEDS ORDERED: DAKIN'S473 M2 IRRIG (11:29)
[2020-04-22] MEDS ORDERED: ZOLOFT 50 MG TA50 MG PO (11:29)
[2020-04-22] MEDS ORDERED: BACITRACIN ZINC14 GM TOP (11:29)
[2020-04-22] MEDS ORDERED: FENTANYL1 EAC1 TRANSDERM (11:29)
[2020-04-22] MEDS ORDERED: OXYCODONE20 MG/1 ML PER TUBE (11:29)
[2020-04-22] MEDS ORDERED: MSL20MG/ML SUBLING (11:29)
--- NOTE | 2020-04-22 13:30 | NUR ---
ASSUMED PATIENT CARE AT 0700. ASSESSMENT CHARTED. MEDS ADMINISTERED PER TUBE W ASSIST FROM STUDFENT NURSE AND INSTRUCTORS. THIS AM RESIDUAL ENTERAL CONTENTS WERE 650ML. TUBE FEEDING HELD. RECHECKED AT 1315; 350ML FOUND. TUBE FEEDING RESUMED AT 70ML/HR. PATIENT VOICED NO ABDOMINAL CRAMPS OR FULLNESS. PATIENT REFUSED REGLAN AND SUPPOSITORY. REFUSING TURNS. WOUNDS ON KNEES C/D/I. DR. OTERO STATED PATIENT IS "LOOKING GREAT". HOSPITALIST TO SPEAK W DPOA REGARDING PLAN. ID ORDERED IV ABX TO SNF HOWEVER THIS WOULD NOT WORK WITH HOSPICE. PATIENT DENIES NEEDS OTHER THAN PAIN. WILL CONTINUE TO MONIOTR AND PROVIDE UPDATES
--- NOTE | 2020-04-22 14:18 | NUR ---
ON-GOING ASSESSMENT: CM REVIEWED CHART AND SPOKE WITH ATTENDING. PLANS ARE FOR PATIENT TO REMAIN IN HOUSE OVERNIGHT AND MONITOR PTS RESIDUALS HE HAD HIGH AMOUNT OF RESIDUALS THIS AM . CM SPOKE WITH ADMISSIONS AT [facility] WHO REPORTS THEY CAN ACCEPT PT BACK ONCE MEDICALLY STABLE. CM NOTIFIED THEM IT IS STILL UNCLEAR IF PATIENT WILL GO BACK ON IV ANBX OF BACK WITH PALLIATIVE/HOSPICE APPROACH. CM REACHED OUT TO ATTENDING TO PLEASE DISCUSS. CM SPOKE WITH PATIENTS DPOA/CRYSTAL WHO REPORTS SHE THOUGHT THE PLANS WAS TO GO BACK TO HOSPICE AND THOUGHT THOSE SERVICE WERE BENEFICIAL. CM REACHED OUT TO ATTENDING WHO REPORTS WILL HAVE DR. SOUSA AND DR TALAVERA DISCUSS. CM UPDATED LIABREE MARKHAM FROM [facility] WELL ADMISSIONS AT [facility]. CM WILL CONTINUE TO FOLLOW TO ASSIST NEEDED.
--- NOTE | 2020-04-22 15:39 | NUR ---
A #4F POWER MIDLINE WAS PLACED ORDERED. THE PATIENT IS CONTRACTED MAKING PLACEMENT DIFFICULT. LINE WAS ADVANCED WITHOUT DIFFICULTY, SECURED AND RELEASED FOR USE
[2020-04-22 17:10] VITALS: BP 117/70
[2020-04-22 20:55] VITALS: BP 122/73
--- NOTE | 2020-04-23 07:19 | NUR ---
PT AOX4 WITH INTERMITTENT FORGETFULNESS. PT REPORTS 9/10 PAIN IN BACK AND LEGS. PT RECEIVING SCHEDULED PER PEG OXYCODONE Q3HR. PT DENIES SOB WHILE ON ROOM AIR. PT RESTING IN BED THROUGHOUT SHIFT, FREQUENT REPOSITIONING ENCOURAGED, PT REFUSING REPOSITIONING. LOW AIR LOSS PUMP MAINTAINS IN PLACE. PT REFUSING WOUND CARE, EXPRESSING 'YOU MUST BE A PROFESSIONAL TO CHANGE THEM'. PROVIDED REASSURANCE, PT CONTINUES TO REFUSE WOUND CARES. PT REFUSING ORAL CARE. PITTING EDEMA NOTED TO BLE AND LUE. PT WITH NUMBNESS THROUGHOUT, CAPILLARY REFILL LESS THAN 3SEC IN ALL EXTREMITIES, PALPABLE PERIPHERAL PULSES. PT ENCOURAGED TO NOTIFY STAFF FOR ALL NEEDS, CALL LIGHT WITHIN REACH, BED ALARM ON, BED LOCKED IN LOWEST POSITION, ROOM REMAINS NEAR NURSES STATION, FREQUENT MONITORING WILL CONTINUE.
[2020-04-23 07:54] VITALS: BP 125/71
[2020-04-23 08:09] VITALS: BP 125/71
[2020-04-23] MEDS ORDERED: KEFLEX250 MG/5 M PO (10:49)
--- NOTE | 2020-04-23 12:46 | NUR ---
ON-GOING ASSESSMENT: CM REVIEWED CHART AND SPOKE WITH ATTENDING. PLANS ARE FOR PATIENT TO DISCHARGE TODAY BACK TO [facility] WITH HOSPICE SERVICES. CM NOTIFIED PATIENTS DAUGHTER/DPOA LESLYE WHO CONFIRMS PLAN TO RETURN TO [facility] WITH [facility]. CM NOTIFIED MUNIRA IN ADMISSIONS AT [facility] WHO REPORTS THEY CAN ACCEPT PATIENT BACK TODAY. CM FAXED NEGATIVE COVID TEST WELL DISCHARGE ORDERS TO FACILITY AND CONFIRMED THEY RECEIVED THEM. CM ALSO FAXED DISCHARGE PAPERWORK TO [facility] AND NOTIFIED LIABREE MARKHAM OF DISCHARGE. SHE REPORTS THEY WILL MEET PATIENT AT FACILITY. AMBULANCE HAS BEEN ARRANGED TO [facility] PATIENT AT [facility] BETWEEN [id number]. CM NOTIFIED [facility]. CHART COPY WAS ORDERED. DAUGHTER AWARE OF TRANSPORT TIME. [facility] FORM ON CHART WELL OUTSIDE DNR. PT REPORTS NO FURTHER NEEDS FROM CM PRIOR TO DISCHARGE. CASE CLOSED.
--- NOTE | 2020-04-23 14:59 | NUR ---
PT CARE ASSUMED AT 0700. A&Ox4. PT REFUSES V4OXDEK DUE TO HIS PAIN LEVEL. PT IS DISCHARGING BACK TO HIS FACILITY TODAY WITH HOSPICE. DNR. TUBE FEEDING OSMOALITY GOING AT 70CC/HR. 200 RESIDUAL. COVID-. IV REMOVED. MIDLINE REMOVED. BELKYS GIVEN ADDITIONALLY FOR PAIN. DISCHARGE PICTURES TAKEN. PATHAK IN PLACE. FALL PROTOCOL. CALL LIGHT IN REACH.
--- NOTE | 2020-04-26 09:52 | HC ---
[facility] [place] [address] CONSULTATION Name: ERICK WOODS Room #: 446[facility]P [facility] M.R.#: [id number] Admission: 04/16/20 Attend Phys: Fredo Wells MD Discharge: 04/23/20 Date of : 53 Report #: [id number] THIS REPORT FOR: cc: FAM - Family physician unknown FAM - Family physician unknown Fran Marshall MD ~ DATE OF SERVICE: 04/19/2020 CHIEF COMPLAINT: Multiple pressure ulcerations. HISTORY OF PRESENT ILLNESS: This is a 64-year-old male patient with a history of multiple sclerosis and functional quadriplegia, who presents with sepsis pattern. He was noted to have multiple pressure ulcerations including both knees and his ear. I have been asked to see him with regard to wound care. The patient was previously on hospice, which was apparently revoked for this hospitalization. He is having some catheter issues and is being seen by Urology as well. PAST MEDICAL HISTORY: Positive for history of paroxysmal atrial fibrillation, generalized anxiety disorder, multiple sclerosis with functional quadriplegia and chronic pressure ulcerations, which have been asked to see him. ALLERGIES: No known drug allergies. MEDICATIONS: Include acetaminophen, ipratropium and albuterol, ascorbic acid, bacitracin, bisacodyl, docusate sodium, fentanyl, hydrocodone, lactobacillus acidophilus, lidocaine, lorazepam, magnesium oxide, metoprolol, morphine sulfate, oxycodone, polyethylene glycol, Lyrica, sertraline, tamsulosin, zinc oxide. FAMILY HISTORY: Noncontributory. REVIEW OF SYSTEMS: CONSTITUTIONAL: The patient denies fever or chills. ENT: The patient denies earache, nasal drainage or sore throat. CARDIOVASCULAR: The patient denies chest pain, palpitations or diaphoresis. PULMONARY: The patient denies cough or shortness of breath. GASTROINTESTINAL: The patient complains of mild nausea. Denies vomiting. ORTHOPEDIC: The patient is aware of the ulcerations on his legs and has some pain associated with this. Other systems in a 14-point review of systems are negative. PHYSICAL EXAMINATION: VITAL SIGNS: Include temperature 36.7, pulse 86, respiratory rate 18, blood pressure 152/86. [facility] [address] [place] [address] CONSULTATION Name: ERICK WOODS [place] Room #: 446[facility] M.R.#: [id number] Admission: 04/16/20 Attend Phys: Fredo Wells MD Discharge: 04/23/20 Date of : 53 Report #: [id number] GENERAL: This is a chronically ill-appearing male patient who appears to be in minimal distress. HEENT: Head, normocephalic. He has a small area of breakdown on his left ear, likely related to pressure. The patient is not allowing position changes per nursing staff. EXTREMITIES: He appears an area of stage 1 pressure ulceration to his left scapular region, stage 3 pressure ulcerations to the sacral and gluteal region and unstageable pressure ulcer to the right and left medial knees. These are likely related to contact pressure from his legs lying together. NEUROLOGIC: The patient appears to be functionally quadriplegic. He is awake and conversant. LABORATORY DATA: Sodium 131, potassium 3.9, chloride 96, CO2 of 30, BUN 20, creatinine 0.4, glucose 89, calcium is 8.6. White blood cell count is 8.1 with a hemoglobin of 9.1. CLINICAL IMPRESSION: 1. Stage 1 pressure ulceration to the left scapular region. 2. Stage 3 pressure ulcer of the left helix of his left ear. 3. Stage 2 pressure ulceration to the sacral-gluteal region. 4. Unstageable pressure ulcer to the right and left medial knees. 5. Sepsis related to urinary tract infection and neurogenic bladder. 6. Chronic back pain with advanced multiple sclerosis. 7. History of atrial fibrillation. 8. Hypertension. RECOMMENDATION: At this point in time, the patient will be placed on low air loss mattress. He will need q.2 hour turning and positioning, but a bit often refuses repositioning. We will recommend bacitracin ointment to the left ear to be applied daily, recommend barrier cream to the sacral-gluteal ulcerations and then Dakin's moist gauze to the knee ulcerations at this time. The patient will need ongoing nutritional support. The patient is agreeable to current plan. I appreciate being asked to see him in consultation. <ELECTRONICALLY SIGNED> By: Fran Marshall MD 04/26/20 [id number] Fran Marshall MD /nt
== END 2020-04-23 15:44 | disposition hospice, home (50) | DRG 871 ==
LOC: 4S 15:18
PROVIDERS: ADMIT Hospitalist; ATTEND Hospitalist
PROC: B24BZZ4 Ultrasonography of Heart with Aorta, Transesophageal (ICD-10-PCS; principal; 2020-04-22)
PROC: 05HB33Z Insertion of Infusion Device into Right Basilic Vein, Percutaneous Approach (ICD-10-PCS; principal; 2020-04-22)
DX: A41.01 Sepsis due to Methicillin susceptible Staphylococcus aureus (principal); L89.153 Pressure ulcer of sacral region, stage 3; L89.303 Pressure ulcer of unspecified buttock, stage 3; L89.813 Pressure ulcer of head, stage 3; R53.2 Functional quadriplegia; T83.511A Infection and inflammatory reaction due to indwelling urethral catheter, initial encounter; Z20.822 Contact with and (suspected) exposure to COVID-19; E86.1 Hypovolemia; M54.9 Dorsalgia, unspecified; B95.8 Unspecified staphylococcus as the cause of diseases classified elsewhere; G35 Multiple sclerosis; I48.0 Paroxysmal atrial fibrillation; R13.10 Dysphagia, unspecified; L89.121 Pressure ulcer of left upper back, stage 1; Z66 Do not resuscitate; N40.1 Benign prostatic hyperplasia with lower urinary tract symptoms; G89.4 Chronic pain syndrome; R31.0 Gross hematuria; R33.8 Other retention of urine; D64.9 Anemia, unspecified; F41.1 Generalized anxiety disorder; L89.890 Pressure ulcer of other site, unstageable; N31.9 Neuromuscular dysfunction of bladder, unspecified; I95.89 Other hypotension; Y83.8 Other surgical procedures as the cause of abnormal reaction of the patient, or of later complication, without mention of misadventure at the time of the procedure; Y92.89 Other specified places as the place of occurrence of the external cause; Z93.1 Gastrostomy status
CPT/HCPCS: 10102; 27000